=== PATIENT | female | born 1985 | race Caucasian/White ===

== ENCOUNTER 2022-07-26 11:47 | Outpatient (OUT) | payer MEDICARE, MEDICAID, SELFPAY ==
--- NOTE | 2022-07-26 11:51 | XR_ITS ---
The [address] [address] Patient Name: ETHAN BRADY MRN: [id number] date: 1985 Sex: F Assigned Patient Location: [facility] Current Patient Location: [facility] Accession/Order Number: [id number] Exam Date: 07/26/2022 11:51 Report Date: 07/26/2022 16:07 At the request of: RAPHAEL WILSON Procedure: XR foot LT min 3V PROCEDURE: XR foot LT min 3V HISTORY: LEFT FOOT PAIN ; follow-up fifth metatarsal stress fracture COMPARISON: XR foot left 07/12/2022 FINDINGS: BONES:Subtle band of sclerosis within base of fifth metatarsal consistent with near complete osseous healing of prior fracture. SOFT TISSUES:No visible soft tissue swelling. EFFUSION:None visible. OTHER: Negative. IMPRESSION: 1. Ongoing osseous healing of fifth metatarsal fracture. Electronically authenticated by: JAVIER LAYTON Date: 07/26/2022 16:07
== END 2022-07-26 11:48 ==
LOC: RAD 11:51
PROVIDERS: PCP Family Medicine; Visit Provider Podiatrist Foot & Ankle Surgery
DX: M84.375D Stress fracture, left foot, subsequent encounter for fracture with routine healing (principal)
CPT/HCPCS: 73630

== ENCOUNTER 2022-08-18 11:35 | Outpatient (OUT) | payer MEDICARE, MEDICAID, SELFPAY ==
--- NOTE | 2022-08-18 | CONS_ITS ---
NURSE CONSULTATION CONSULTATION DATE: ??08/18/2022 Patient visits the nurse to monitor her response to change in medication.? We had increased at her last visit, which was on 07/19/2022.? We had increased the Zonegran 50 mg three pills at bedtime and discontinued the gabapentin.? Patient reports that the transition has been fairly smooth.? Patient reports having improvement in symptoms with the use of Zonegran 50 mg pills, three at bedtime, and denies any side effects with the use of the same. RECOMMENDATIONS:? I have recommended continuing with the same dose of Zonegran 150 mg at h.s. and will have the patient return to the office in approximately four weeks? time or sooner if needed.? As part of providing excellent, safe, comprehensive care, the following was completed at our patient's visit: 1. A medication reconciliation and review to ensure accurate knowledge of current/active medications, including asking our patients to inform us about any mofc-wse-rspgovi medications or herbal remedies/nutritional supplements/alternative remedies. 2. A review to specifically ensure our patients have had annual screening for: elevated body mass index (BMI, see intake chart for exact total), tobacco use, screening for depression, and screening for unhealthy alcohol use.? When screening is concerning, patients are provided with education and the specific recommendation to discuss the concerning health issue and treatment options with their primary care provider. TATYANA
== END 2022-08-18 11:36 | disposition home or self-care (01) ==
LOC: PM 11:36
PROVIDERS: PCP Family Medicine; Visit Provider Anesthesiology Pain Medicine
DX: Z76.89 Persons encountering health services in other specified circumstances (principal)
CPT/HCPCS: G0463

== ENCOUNTER 2022-08-24 11:06 | Outpatient (OUT) | payer MEDICARE, MEDICAID, SELFPAY ==
--- NOTE | 2022-08-24 | XR_ITS ---
The [address] [address] Patient Name: ETHAN BRADY MRN: [id number] date: 1985 Sex: F Assigned Patient Location: [facility] Current Patient Location: [facility] Accession/Order Number: [id number] Exam Date: 08/24/2022 11:40 Report Date: 08/24/2022 12:18 At the request of: RAPHAEL WILSON Procedure: XR foot DANIELLE min 3V EXAMINATION: XR foot DANIELLE min 3V HISTORY: BILATERAL FOOT PAIN ; left foot pain, right lateral heel pain COMPARISON: XR foot left 07/26/2022, XR foot right 04/27/2022 FINDINGS: RIGHT FINDINGS: BONES: Prosthetic replacement of the talus and articular surface of the tibial plafond; no appreciable fracture or displacement. Prior osteotomy and bone staple repair of base of first metatarsal. Posterior calcaneal osteotomy and healing. SOFT TISSUES: No visible soft tissue swelling. OTHER: Negative. LEFT FINDINGS: BONES: Residual small fracture line seen at the lateral and inferior margins at base of fifth metatarsal. SOFT TISSUES: No visible soft tissue swelling. OTHER: Negative. IMPRESSION: RIGHT CONCLUSION: Stable surgical changes without evidence of hardware failure or change in alignment. LEFT CONCLUSION: Incomplete, but likely ongoing, healing of base of fifth metatarsal fracture. Electronically authenticated by: JAVIER LAYTON Date: 08/24/2022 12:18
== END 2022-08-24 11:07 | disposition home or self-care (01) ==
LOC: RAD 11:07
PROVIDERS: PCP Family Medicine; Visit Provider Podiatrist Foot & Ankle Surgery
DX: M79.672 Pain in left foot (principal); M79.671 Pain in right foot; Z98.890 Other specified postprocedural states; Z96.7 Presence of other bone and tendon implants; S92.352A Displaced fracture of fifth metatarsal bone, left foot, initial encounter for closed fracture; X58.XXXA Exposure to other specified factors, initial encounter
CPT/HCPCS: 73630

== ENCOUNTER 2022-09-20 13:37 | Outpatient (OUT) | payer MEDICARE, MEDICAID, SELFPAY ==
--- NOTE | 2022-09-20 13:48 | CT_ITS ---
[address] [address] Patient Name: ETHAN BRADY MRN: [id number] date: 1985 Sex: F Assigned Patient Location: CT Current Patient Location: CT Accession/Order Number: [id number] Exam Date: 09/20/2022 14:05 Report Date: 09/20/2022 18:22 At the request of: RAPHAEL WILSON Procedure: CT foot LT wo con EXAMINATION: CT foot LT wo con HISTORY: Stress Fracture Left Toe M84.378 COMPARISON: 08/24/2022 TECHNIQUE: Multi-planar CT images were created without IV contrast. Dose reduction techniques were achieved by using automated exposure control and/or adjustment of mA and/or kV according to patient size and/or use of iterative reconstruction technique. FINDINGS: BONES: Transverse extra-articular fracture identified at the base of the fifth metatarsal with partial bony bridging. Incomplete bony bridging identified along the plantar cortex. No additional fracture. No dislocation. No significant degenerative changes. SOFT TISSUES: Negative. No visible soft tissue swelling. EFFUSION: None visible. OTHER: Negative. CT/CT foot LT wo con IMPRESSION: Subacute transverse extra-articular healing fracture base of the fifth metatarsal with incomplete bony bridging along the plantar cortex Electronically authenticated by: TAYLA HANNON Date: 09/20/2022 18:22
== END 2022-09-20 13:38 | disposition home or self-care (01) ==
LOC: CT 13:38
PROVIDERS: PCP Family Medicine; Visit Provider Podiatrist Foot & Ankle Surgery
DX: M84.375A Stress fracture, left foot, initial encounter for fracture (principal)
CPT/HCPCS: 73700

== ENCOUNTER 2022-11-02 08:40 | Outpatient (OUT) | payer MEDICARE, MEDICAID, SELFPAY ==
--- NOTE | 2022-11-02 | XR_ITS ---
The [address] [address] Patient Name: ETHAN BRADY MRN: [id number] date: 1985 Sex: F Assigned Patient Location: [facility] Current Patient Location: [facility] Accession/Order Number: [id number] Exam Date: 11/02/2022 09:10 Report Date: 11/02/2022 10:10 At the request of: JOSE DAVID ROSSI Procedure: XR foot LT min 3V PROCEDURE: XR foot LT min 3V HISTORY: LEFT FOOT PAIN COMPARISON: XR foot bilateral 08/24/2022 FINDINGS: BONES:Stable nondisplaced fracture at base of fifth metatarsal without appreciable increased density at fracture line or callus formation. SOFT TISSUES:No visible soft tissue swelling. EFFUSION:None visible. OTHER: Negative. XR/XR foot LT min 3V IMPRESSION: 1. Stable, nondisplaced base of fifth metatarsal fracture. No appreciable change or visible progression of bone healing. Electronically authenticated by: JAVIER LAYTON Date: 11/02/2022 10:10
== END 2022-11-02 08:41 | disposition home or self-care (01) ==
LOC: RAD 08:41
PROVIDERS: PCP Family Medicine; Visit Provider Physician Assistant
DX: M79.672 Pain in left foot (principal)
CPT/HCPCS: 73630

== ENCOUNTER 2022-12-21 13:20 | Outpatient (OUT) | payer MEDICARE, MEDICAID, SELFPAY ==
--- NOTE | 2022-12-21 | XR_ITS ---
The [address] [address] Patient Name: ETHAN BRADY MRN: [id number] date: 1985 Sex: F Assigned Patient Location: [facility] Current Patient Location: Accession/Order Number: [id number] Exam Date: 12/21/2022 13:30 Report Date: 12/22/2022 00:44 At the request of: JOSE DAVID ROSSI Procedure: XR foot LT min 3V PROCEDURE: XR foot LT min 3V HISTORY: LEFT FOOT PAIN COMPARISON: XR foot left 11/02/2022 FINDINGS: BONES:Nondisplaced fracture at base of fifth metatarsal without visible callus formation or increased density of the fracture line. SOFT TISSUES:No visible soft tissue swelling. EFFUSION:None visible. OTHER: Negative. XR/XR foot LT min 3V IMPRESSION: 1. Persisting, stable base of fifth metatarsal fracture without visible progression of osseous healing. Electronically authenticated by: JAVIER LAYTON Date: 12/22/2022 00:44
== END 2022-12-21 13:21 | disposition home or self-care (01) ==
LOC: RAD 13:20
PROVIDERS: PCP Family Medicine; Visit Provider Physician Assistant
DX: M79.672 Pain in left foot (principal); S92.355G Nondisplaced fracture of fifth metatarsal bone, left foot, subsequent encounter for fracture with delayed healing
CPT/HCPCS: 73630

== ENCOUNTER 2023-02-14 12:49 | Outpatient (OUT) | payer MEDICARE, SELFPAY ==
--- NOTE | 2023-02-14 | XR_ITS ---
The [address] [address] Patient Name: ETHAN BRADY MRN: [id number] date: 1985 Sex: F Assigned Patient Location: [facility] Current Patient Location: [facility] Accession/Order Number: [id number] Exam Date: 02/14/2023 13:10 Report Date: 02/15/2023 17:14 At the request of: RAPHAEL WILSON Procedure: XR ankle RT min 3V EXAM: XR ankle RT min 3V HISTORY: RIGTH ANKLE PAIN COMPARISON: 04/27/2022 FINDINGS/IMPRESSION: 1. No acute fracture or dislocation 2. Ankle arthroplasty hardware. No apparent hardware complication. 3. Healed osteotomy of the calcaneus. 4. Surgical staple fixation of the medial aspect of the foot. Electronically authenticated by: XIANG GREENE Date: 02/15/2023 17:14
--- NOTE | 2023-02-14 | XR_ITS ---
[address] [address] Patient Name: ETHAN BRADY MRN: [id number] date: 1985 Sex: F Assigned Patient Location: [facility] Current Patient Location: [facility] Accession/Order Number: [id number] Exam Date: 02/14/2023 13:10 Report Date: 02/15/2023 17:28 At the request of: RAPHAEL WILSON Procedure: XR foot DANIELLE min 3V EXAM: XR foot DANIELLE min 3V HISTORY: BILATERAL FOOTPAIN COMPARISON: 08/24/2022 FINDINGS/IMPRESSION: RIGHT: 1. Surgical staple fixation of the proximal aspect of the first metatarsal. No apparent hardware complication. 2. Ankle posterior hardware. 3. Mild degeneration of the interphalangeal joints. 4. No acute fracture. LEFT: 1. Transverse fracture of the proximal fifth metatarsal. There is sclerosis along the fracture line. The fracture line remains visualized. 2. Normal alignment of the joints of the foot. 3. No ankle joint effusion. Electronically authenticated by: XIANG GREENE Date: 02/15/2023 17:28
== END 2023-02-14 12:50 | disposition home or self-care (01) ==
PROVIDERS: PCP Family Medicine; Visit Provider Podiatrist Foot & Ankle Surgery
DX: M25.571 Pain in right ankle and joints of right foot (principal); M84.375A Stress fracture, left foot, initial encounter for fracture; S92.355A Nondisplaced fracture of fifth metatarsal bone, left foot, initial encounter for closed fracture
CPT/HCPCS: 73610; 73630

== ENCOUNTER 2023-02-14 19:18 | Outpatient (REF) | payer MEDICARE, SELFPAY ==
[2023-02-21 10:10] LABS: Age Gdln ACOG Testing Note (.); HPV Aptima Negative (Negative); IGP, Aptima HPV, rfx 16/18,45 Note (.)
== END 2023-02-14 19:19 | disposition home or self-care (01) ==
LOC: LAB 19:18
PROVIDERS: PCP Family Medicine; Visit Provider Obstetrics & Gynecology
DX: Z01.419 Encounter for gynecological examination (general) (routine) without abnormal findings (principal)
CPT/HCPCS: 87624; G0145

== ENCOUNTER 2023-02-15 09:59 | Outpatient (OUT) | payer MEDICARE, SELFPAY ==
--- NOTE | 2023-02-15 10:22 | PM.CN ---
Consult Note: HPI Data of Consult Patient: known to practice within the last 3 years Requesting Physician: Nohelia Scott NP Primary Care Provider: HEATHER YANEZ Consult Narrative Reason for consult: f/u Narrative: Rena salcedo pleasant 37 year old female presents for evaluation and management of right foot pain, hx of numerous surgeries and continues to follow with podiatry. Today patient rating pain 7/10 in right foot, throbbing and hurting. Describes the pain as a nerve tingling pain. Has found benefit to zonegran in 150mg HS. cc:: CC: Nohelia Scott NP Review of Systems ROS Status of ROS 10 or more systems reviewed and unremarkable except as noted in history and below Musculoskeletal Reports: extremity pain and joint pain Exam Constitutional Documenting provider has reviewed patient's vital signs: yes Common normals: no apparent distress, oriented x3, healthy appearing, alert and well nourished General appearance: cooperative HENMT Common normals: normocephalic, hearing grossly normal bilaterally and moist oral mucous membranes Head and scalp: normocephalic Eye Common normals: PERRL Pupil: PERRL Neck & C-Spine Common normals: full ROM General: normal visual inspection Chest Common normals: inspection of chest normal Respiratory Common normals: normal respiratory effort, no retractions and no use of accessory muscles Extremity Right lower extremity: ankle joint and foot and digits Left lower extremity: ankle joint and foot and digits Other: scarring noted on right foot. hx of left foot stress fx limited ROM in bilateral feet intermittent coolness and edema Neuro Common normals: oriented x3, CN's II-XII intact bilaterally, moves all extremities, no focal motor deficits, no sensory deficits noted and deep tendon reflexes 2+ bilaterally Sensorium/orientation: alert Motor exam: strength 5/5 throughout and no movement abnormalities noted Psych Common normals: mental status grossly normal, thought process normal, cooperative, affect normal, speech normal and activity/motor behavior normal Speech: normal speech Thought process: normal thought process Results Additional Findings Additional findings: I have checked an OARRS report on this patient today and there are no aberrancies noted in the prescribing history.?? A drug screen was completed and reviewed within the last year, and if there has not been a drug screen completed we ordered one today to monitor higher risk, state monitored pain medication use. As part of providing excellent, safe, comprehensive care, the following was completed at our patient's visit: 1. A medication reconciliation and review to ensure accurate knowledge of current/active medications, including asking our patients to inform us about any jjol-tjw-vzisqoj medications or herbal remedies/nutritional supplements/alternative remedies. 2. A review to specifically ensure our patients have had annual screening for: elevated body mass index (BMI), tobacco use, screening for depression, and screening for unhealthy alcohol use. When screening is concerning, patients are provided with education and the specific recommendation to discuss the concerning health issue and treatment options with their primary care provider. Assessment and Plan Assessment and Plan (1) Chronic pain in right foot: (2) Left ankle pain: (3) Anxiety: Assessment and Plan: patient on 10mg fluoxetine through PCP, we discussed risks and benefits as well as possible serotonin syndrome. Patient would like to talk to PCP about stopping fluoxetine and starting duloxetine for her chronic pain. (4) Chronic pain syndrome: Plan continue zonegran 150mg HS start duloxetine 30mg daily, can take HS if this causes drowsiness, will start after stopping fluoxetine as discussed. take 30mg daily for 6 weeks, call to discuss effectiveness, can increase to 60mg next fill continue f/u with podiatry f/u 3 months
== END 2023-02-15 10:00 | disposition home or self-care (01) ==
LOC: PM 09:59
PROVIDERS: PCP Family Medicine; Visit Provider Nurse Practitioner
DX: M25.572 Pain in left ankle and joints of left foot (principal); F41.9 Anxiety disorder, unspecified; G89.4 Chronic pain syndrome
CPT/HCPCS: G0463

== ENCOUNTER 2023-05-31 08:40 | Outpatient (OUT) | payer MEDICARE, MEDICAID, SELFPAY ==
--- NOTE | 2023-05-31 09:00 | P.CN_ITS ---
Consult Note: HPI Data of Consult Patient: known to practice within the last 3 years Requesting Physician: Nohelia Scott NP Primary Care Provider: HEATHER YANEZ Consult Narrative Reason for consult: f/u Narrative: Rena salcedo pleasant 37 year old female presents for evaluation and management of right foot pain, hx of numerous surgeries and continues to follow with podiatry. Today patient rating pain 5/10 in right foot increasing to 8- 9/10, throbbing and hurting. Describes the pain as a nerve tingling pain. Has found benefit to zonegran in 150mg HS and duloxetine 30mg daily, however she has noticed weight gain. Patient feels her nerve pain has improved but she continues to have severe throbbing. cc:: CC: Nohelia Scott NP Review of Systems ROS Status of ROS 10 or more systems reviewed and unremark able except as noted in history and below Musculoskeletal Reports: extremity pain and joint pain Meds Home Medications and Allergies Home Medications ?Medication ?Instructions ?Recorded ?Confirmed ?Type cyclobenzaprine 10 mg tablet 10 mg PO DAILY 02/15/23 02/15/23 History duloxetine 60 mg capsule,delayed 60 mg PO DAILY 02/15/23 02/15/23 History release linaclotide 290 mcg capsule 290 mcg PO DAILY 02/15/23 02/15/23 History (Linzess) meclizine 25 mg tablet 25 mg PO BID 02/15/23 02/15/23 History norethindrone 1 mg-ethinyl 1 tab PO DAILY 02/15/23 02/15/23 History estradiol 20 mcg (24)-iron 75 mg (4) tablet () tramadol 50 mg tablet 50 mg PO DAILY PRN pain 02/15/23 02/15/23 History zinc gluconate 50 mg tablet 50 mg PO DAILY 02/15/23 02/15/23 History Allergies Allergy/AdvReac Type Severity Reaction Status Date / Time Penicillins Allergy Unknown Verified 02/15/23 10:52 Exam Constitutional Documenting provider has reviewed patient's vital signs: yes Common normals: no apparent distress, oriented x3, healthy appearing, alert and well nourished General appearance: cooperative HENNY Common normals: normocephalic, hearing grossly normal bilaterally and moist oral mucous membranes Head and scalp: normocephalic Eye Common normals: PERRL Pupil: PERRL Neck & C-Spine Common normals: full ROM General: normal visual inspection Chest Common normals: inspection of chest normal Respiratory Common normals: normal respiratory effort, no retractions and no use of accessory muscles Extremity Right lower extremity: ankle joint and foot and digits Left lower extremity: ankle joint and foot and digits Other: scarring noted on right foot. hx of left foot stress fx limited ROM in bilateral feet intermittent coolness and edema Neuro Common normals: oriented x3, CN's II-XII intact bilaterally, moves all extremities, no focal motor deficits, no sensory deficits noted and deep tendon reflexes 2+ bilaterally Sensorium/orientation: alert Motor exam: strength 5/5 throughout and no movement abnormalities noted Psych Common normals: mental status grossly normal, thought process normal, cooperative, affect normal, speech normal and activity/motor behavior normal Speech: normal speech Thought process: normal thought process Results Additional Findings Additional findings: If on a controlled substance or opioids, I have checked an OARRS report on this patient and there are no aberrancies noted in the prescribing history.??If on a controlled substance or opioid a drug screen was completed and reviewed within the last year, and if there has not been a drug screen completed we ordered one today to monitor higher risk, state monitored pain medication use. As part of providing excellent, safe, comprehensive care, the following was completed at our patient's visit: 1. A medication reconciliation and review to ensure accurate knowledge of current/active medications, including asking our patients to inform us about any kfvv-vrw-mttzfgb medications or herbal remedies/nutritional supplements/alternative remedies. 2. A review to specifically ensure our patients have had annual screening for screening for depression, screening for tobacco use, and screening for unhealthy alcohol use. For concerning screenings had a discussion with the patient, provided patient education, and recommended follow-up with primary care provider when appropriate. If patient noted with a risk of falling, they received education on strength, gait, and balance training to prevent future risk of falling. Assessment and Plan Assessment and Plan (1) Chronic pain in right foot: (2) Left ankle pain: (3) Anxiety: Assessment and Plan: patient on 10mg fluoxetine through PCP, we discussed risks and benefits as well as possible serotonin syndrome. Patient would like to talk to PCP about stopping fluoxetine and starting duloxetine for her chronic pain. (4) Chronic pain syndrome: Plan adjust zonegran 50mg AM 100mg HS, call to discuss effectiveness decrease duloxetine every other day 1-2 weeks as tolerated and stop, patient has noticed pain relief but weight gain. Pt would like to DC continue f/u with podiatry continue f/u with PCP, they manage tramadol f/u 3 months
== END 2023-05-31 08:41 | disposition home or self-care (01) ==
PROVIDERS: PCP Family Medicine; Visit Provider Nurse Practitioner
DX: M79.672 Pain in left foot (principal); M25.572 Pain in left ankle and joints of left foot; F41.9 Anxiety disorder, unspecified; G89.4 Chronic pain syndrome
CPT/HCPCS: G0463

== ENCOUNTER 2023-06-27 09:51 | Outpatient (OUT) | payer MEDICARE, SELFPAY ==
--- NOTE | 2023-06-27 10:16 | US_ITS ---
The [address] [address] Patient Name: ETHAN BRADY MRN: [id number] date: 1985 Sex: F Assigned Patient Location: [place] Current Patient Location: [place] Accession/Order Number: [id number] Exam Date: 06/27/2023 10:18 Report Date: 06/27/2023 11:01 At the request of: SMITHA REINOSO Procedure: US pelvis w/ transvaginal EXAMINATION: US pelvis w/ transvaginal HISTORY: Pain Of Ovary N94.89 ; left pelvic pain COMPARISON: No relevant comparison available. TECHNIQUE: Transabdominal and/or transvaginal sonographic examination was performed as indicated by examination type. FINDINGS: UTERUS: Normal size and appearance. Uterus size: 6.9 x 4.4 x 4.1 cm ENDOMETRIUM: Normal homogeneous appearance. Endometrial thickness: 9 mm RIGHT OVARY: Oophorectomy LEFT OVARY: Normal size and appearance. Duplex Doppler demonstrates normal waveform and flow; resistive index 0.6. Ovary size: 2.6 x 1.5 x 1.2 cm CUL-DE-SAC: Unremarkable. No significant free fluid. BLADDER: Unremarkable. OTHER: None. US/US pelvis w/ transvaginal IMPRESSION: 1. Unremarkable uterus and left ovary. No suspicious adnexal findings to account for patient's symptoms. 2. Prior right oophorectomy. Electronically authenticated by: JAVIER LAYTON Date: 06/27/2023 11:01
== END 2023-06-27 09:52 | disposition home or self-care (01) ==
PROVIDERS: PCP Physician Assistant; Visit Provider Physician Assistant
DX: N94.89 Other specified conditions associated with female genital organs and menstrual cycle (principal)
CPT/HCPCS: 76830; 76856

== ENCOUNTER 2023-08-30 08:57 | Outpatient (OUT) | payer MEDICARE, SELFPAY ==
--- NOTE | 2023-08-30 09:11 | P.CN_ITS ---
Consult Note: HPI Data of Consult Patient: known to practice within the last 3 years Requesting Physician: Nohelia Scott NP Primary Care Provider: Toshia Blue Consult Narrative Reason for consult: f/u Narrative: Rena Juan a pleasant 37 year old female presents for evaluation and management of right foot pain, hx of numerous surgeries and continues to follow with podiatry. Today patient rating pain 5/10 in right foot increasing to 8- 9/10, throbbing and hurting. Has noticed improvement with zonegran 100mg BID. cc:: CC: Nohelia Scott NP Review of Systems ROS Status of ROS 10 or more systems reviewed and unremark able except as noted in history and below Musculoskeletal Reports: extremity pain PFSH PFSH Medical History (Updated 05/31/23 @ 09:32 by Laura Meza RN) Osteoarthritis of right ankle ?M19.071 - Primary osteoarthritis, right ankle and foot (ICD-10) Neuropathy of right foot ?G57.91 - Unspecified mononeuropathy of right lower limb (ICD-10) Surgical History History of right salpingo-oophorectomy ?Z90.79 - Acquired absence of other genital organ(s) (ICD-10) ?Z90.721 - Acquired absence of ovaries, unilateral (ICD-10) History of open reduction and internal fixation (ORIF) procedure ?Z98.890 - Other specified postprocedural states (ICD-10) History of total ankle replacement ?Z96.669 - Presence of unspecified artificial ankle joint (ICD-10) Meds Home Medications and Allergies Home Medications ?Medication ?Instructions ?Recorded ?Confirmed ?Type cyclobenzaprine 10 mg tablet 10 mg PO DAILY 02/15/23 02/15/23 History duloxetine 60 mg capsule,delayed 60 mg PO DAILY 02/15/23 02/15/23 History release linaclotide 290 mcg capsule 290 mcg PO DAILY 02/15/23 02/15/23 History (Linzess) meclizine 25 mg tablet 25 mg PO BID 02/15/23 02/15/23 History norethindrone 1 mg-ethinyl 1 tab PO DAILY 02/15/23 02/15/23 History estradiol 20 mcg (24)-iron 75 mg (4) tablet () tramadol 50 mg tablet 50 mg PO DAILY PRN pain 02/15/23 02/15/23 History zinc gluconate 50 mg tablet 50 mg PO DAILY 02/15/23 02/15/23 History zonisamide 50 mg capsule 50 mg PO BID #90 caps 05/31/23 Rx Allergies Allergy/AdvReac Type Severity Reaction Status Date / Time Penicillins Allergy Unknown Verified 02/15/23 10:52 Exam Constitutional Documenting provider has reviewed patient's vital signs: yes Common normals: no apparent distress, oriented x3, healthy appearing, alert and well nourished General appearance: cooperative HENMT Common normals: normocephalic, hearing grossly normal bilaterally and moist oral mucous membranes Head and scalp: normocephalic Eye Common normals: PERRL Pupil: PERRL Neck & C-Spine Common normals: full ROM General: normal visual inspection Chest Common normals: inspection of chest normal Respiratory Common normals: normal respiratory effort, no retractions and no use of accessory muscles Extremity Right lower extremity: ankle joint and foot and digits Left lower extremity: ankle joint and foot and digits Other: scarring noted on right foot. hx of left foot stress fx limited ROM in bilateral feet intermittent coolness and edema Neuro Common normals: oriented x3, CN's II-XII intact bilaterally, moves all extremities, no focal motor deficits, no sensory deficits noted and deep tendon reflexes 2+ bilaterally Sensorium/orientation: alert Motor exam: strength 5/5 throughout and no movement abnormalities noted Psych Common normals: mental status grossly normal, thought process normal, cooperative, affect normal, speech normal and activity/motor behavior normal Speech: normal speech Thought process: normal thought process Assessment and Plan Assessment and Plan (1) Chronic pain in right foot: (2) Left ankle pain: (3) Chronic pain syndrome: Plan continue zonegran 100mg BID continue f/u with podiatry continue f/u with PCP, they manage tramadol f/u 6 months
== END 2023-08-30 08:58 | disposition home or self-care (01) ==
LOC: PM 08:57
PROVIDERS: PCP Physician Assistant; Visit Provider Nurse Practitioner
DX: M79.671 Pain in right foot (principal); M25.572 Pain in left ankle and joints of left foot; G89.4 Chronic pain syndrome
CPT/HCPCS: G0463

== ENCOUNTER 2024-02-28 19:58 | Outpatient (REF) | payer MEDICARE, SELFPAY | END 2024-02-28 19:59 | disposition home or self-care (01) | LOC: LAB 19:58 | PROVIDERS: PCP Physician Assistant; Visit Provider Obstetrics & Gynecology | DX: Z01.419 Encounter for gynecological examination (general) (routine) without abnormal findings (principal) | CPT/HCPCS: 87624; 88175 ==

== ENCOUNTER 2024-03-13 12:40 | Outpatient (OUT) | payer MEDICARE, SELFPAY ==
--- OUTSIDE RECORDS SUMMARY | 2024-03-13 12:49 | XMS_ITS | CCD ---
Author Organization [facility] Care Team Providers Care Enamel Drier Name Role Phone PROVIDER, UNKNOWN Attending Unavailable PROVIDER, UNKNOWN Admitting Unavailable VIVIANA BOONE Referring Unavailable Ronaldo Anthony Unavailable Unavailable Primary Care Provider MD Heather Matos Primary Care Provider GLYNN Garcia Attending Provider Sandra Garcia Unavailable Sandra Garcia Attending Unavailable Sandra Garcia Admitting Unavailable Heather Chawla Primary Care Unavailable RAPHAEL MUHAMMAD Admitting Unavailable RAPHAEL MUHAMMAD Attending Unavailable RENATA, DR HEATHER An Primary Care Unavailable CALIN, DR JAVIER Marcus Consulting Unavailable RAPHAEL MUHAMMAD Consulting Unavailable RENATA, DR HEATHER An Primary Care Unavailable KELLY, DR STANFORD Tadeo Consulting Unavailabl e KELLY, DR STANFORD Tadeo Attending Unavailabl e KELLY, DR STANFORD Tadeo Admitting Unavailabl e NIDIA PIPER Consulting Unavailable LAKSHMIPATHY ., NARENDRANATH Admitting Cheri vailable LAKSHMIPATHY ., NARENDRANATH Consulting Cheri vailable LAKSHMIPATHY ., NARENDDELATH Attending Cheri vailable RENATA, DR HEATHER An Primary Care Unavailable LAKSHMIPATHY ., NARENDRANATH Attending Cheri vailable LAKSHMIPATHY ., NARENDRANATH Admitting Cheri vailable LAKSHMIPATHY ., NARENDRANATH Consulting Cheri vailable DR HEATHER CHAWLA Primary Care Unavailable RENATA, DR HEATHER An Primary Care Unavailable RAPHAEL MUHAMMAD Referring Unavailable LAKSHMIPATHY ., NARENDRANATH Attending Cheri vailable LAKSHMIPATHY ., NARENDRANATH Admitting Cheri vailable LAKSHMIPATHY ., NARENDRANATH Consulting Cheri vailable MEKHI ., FIONA Consulting Unavailable MEKHI ., FIONA Attending Unavailable MEKHI ., FINOA Admitting Unavailable RENATA, DR HEATHER An Primary Care Unavailable FLO, JOSE DAVID Attending Unavailable FLO, JOSE DAVID Admitting Unavailable WEST, DR TAYLA [place] Consulting Unavailable RENATA, DR HEATHER An Primary Care Unavailable FLOJOSE DAVID GOLDEN Consulting Unavailable RENATA, DR HEATHER An Primary Care Unavailable ROBBINANDER, RAPHAEL Guerin Admitting Unavailable HIGHLANDER, RAPHAEL Guerin Attending Unavailable PARVEZ, DR TAYLA [place] Consulting Unavailable STEVE, RAPHAEL Guerin Consulting Unavailable RENATA, DR HEATHER An Primary Care Unavailable ELIGIO ., DR CAMPA Consulting Unavailable ELIGIO ., DR CAMPA Attending Unavailable ELIGIO ., DR CAMPA Admitting Unavailable HIGHLANDER, RAPHAEL Guerin Admitting Unavailable HIGHLANDER, RAPHAEL Guerin Attending Unavailable CALIN, DR JAVIER Marcus Consulting Unavailable RENATA, DR HEATHER An Primary Care Unavailable HIGHLANDER, RAPHAEL Guerin Consulting Unavailable Heather Chawla MD Primary Care Provider [phone] Unavailable Primary Care Provider Unavailarsenio e SMITHA REINOSO Attending Unavailable SMITHA REINOSO Attending Unavailable SMITHA REINOSO Attending Unavailable KATHERYN DEL VALLE Attending Unavailable Allergies Allergy Classification Reported Allergen(s) Allergy Type Date of Onset Reaction(s) Facility (11 sources) Penicillins; Translations: [PENICILLINS] Propensity to adverse reactions to drug (disorder) 2 Hives, Itching, Rash, Swelling [facility] sources[facility] Penicillin G Drug Allergy fever, hives [facility] Other (1 source) Desonide Drug Allergy [facility] Repository Medications Current Medications Medication Drug Class(es) Dates Sig (Normalized) Sig (Original) acetaminophen 325 mg oral tablet (3 sources) Start: 07-21-2011 take 2 tablets by mouth every four hours as needed acetaminophen (TYLENOL) 325 MG tablet Take 2 Tabs by mouth every 4 hours as needed. 60 Tab 3 07/21/2011 Active ascorbic acid 500 mg oral capsule (7 sources) Vitamin C take 1 capsule by mouth in the morning Ascorbic Acid (Vitamin C) 500 MG capsule Take 500 mg by mouth in the morning. Active Vitamin C Active azithromycin 250 mg oral tablet (1 source) Macrolide Antimicrobial Start: 02-05-2022 Azithromycin 250 MG 2 tablets on the first day, then 1 tablet daily for 4 days Orally Once a day for 5 day(s) Jan, Active Calcium Carb-Cholecalcifero l (CALCIUM 500 + D PO) (6 sources) Calcium Carb-Cholecalcifer ol (CALCIUM 500 + D PO) Take 500 mg by mouth in the morning. Active calcium carbonate 500 mg oral tablet (3 sources) Start: 10-03-2012 take 1 tablet by mouth once daily calcium carbonate (OS-MARQUISE) 1250 MG tablet Take 1 Tab by mouth daily. 30 Tab 3 10/03/2012 Active cholecalciferol 0.05 mg oral capsule (6 sources) Vitamin D take 1 capsule by mouth in the morning cholecalciferol (Vitamin D-3) 50 MCG (2000 UT) capsule Take 2,000 Units by mouth in the morning. Active codeine phosphate 2 mg/ml / guaiFENesin 20 mg/ml oral solution (1 source) Opioid Agonist Start: 02-05-2022 take 10 mL by mouth every four to six hours as needed for cough guaiFENesin-Codein e 100-10 MG/5ML 10 mL as needed Orally every 4-6 hrs as needed for cough for 3 days Jan, Active cyclobenzaprine hydrochloride 10 mg oral tablet (5 sources) Muscle Relaxant take 1 tablet by mouth three times daily as needed cyclobenzaprine (FLEXERIL) 10 MG tablet Take 10 mg by mouth 3 times daily as needed. Active doxycycline monohydrate 100 mg oral capsule (1 source) Tetracycline-class Drug Start: 12-27-2021 take 1 capsule by mouth every twelve hours Doxycycline Monohydrate 100 MG 1 capsule Orally Twice a day for 10 day(s) Dec, Active DULoxetine 30 mg delayed release oral capsule (7 sources) Serotonin and Norepinephrine Reuptake Inhibitor Start: 05-08-2023 take 1-2 capsules by mouth once daily DULoxetine (Cymbalta) [address] capsule TAKE 1 TO 2 CAPSULES BY MOUTH ONCE DAILY 05/08/2023 Active 0.4 ml enoxaparin sodium 100 mg/ml prefilled syringe (2 sources) Low Molecular Weight Heparin Start: 07-21-2011 inject 0.4 mL by subcutaneous injection once daily enoxaparin (LOVENOX) 40 MG/0.4ML injection Inject 0.4 mL under the skin daily. 11.2 mL 0 07/21/2011 Active ergocalciferol 1.25 mg oral capsule (3 sources) Provitamin D2 Compound Start: 10-03-2012 take 1 capsule by mouth once daily ergocalciferol (DRISDOL) 86637 UNITS capsule Take 1 Cap by mouth daily. 30 Cap 3 10/03/2012 Active Ethinyl Estradiol / Ferrous fumarate / Norethindrone (9 sources) Estrogen Start: 06-19-2023 End: 06-18-2024 take 1 tablet by mouth once daily, then take 1 tablet by mouth once daily norethindrone-ethi nyl estradiol (Junel FE 03/11) 1-20 MG-MCG tablet Indications: Uses control Take 1 tablet by mouth Daily Take 1 tablet by mouth daily 360 tablet 06/19/2023 06/18/2024 Active take 1 tablet by paige th every twenty-four hours Loestrin Fe 1.5/30 1.5-30 MG-MCG 1 tablet Orally Once a day for 28 day(s) Active ethinyl estradiol 0.03 mg / norethindrone acetate 1.5 mg oral tablet (5 sources) Estrogen Start: 02-14-2023 End: 02-28-2024 take 1 tablet by mouth once daily norethindrone ac-eth estradio (Loestrin 1.5/30, 21,) 1.5-30 MG-MCG tablet tablet Indications: Family planning, natural methods to avoid Take 1 tablet by mouth 1 (one) time each day at the same time 21 tablet 11 02/14/2023 02/28/2024 Discontinued (Ineffective) fexofenadine hydrochloride 30 mg disintegrating oral tablet (9 sources) Histamine-1 Receptor Antagonist take 1 tablet by mouth in the morning fexofenadine ODT (Lisa ODT) 30 MG disintegrating tablet Take 30 mg by mouth in the morning. Active take 1 tablet by mouth twice radha ly Lisa 60 MG 1 tablet Orally Twice a day Active fluticasone propionate 0.05 mg/actuat metered dose nasal spray (2 sources) Corticosteroid take 1 spray(s) nasal route once daily Flonase 50 MCG/ACT 1 spray in each nostril Nasally Once a day Active gabapentin 600 mg oral tablet (1 source) Anti-epileptic Agent Gabapentin 600 MG TAKE 2 TABLETS IN THE AM, 1 TABLET IN THE AFTERNOON, AND 2 TABLETS AT BEDTIME Oral for 30 Days Active linaclotide 0.29 mg oral capsule (10 sources) Guanylate Cyclase-C Agonist Start: 05-09-19 take 1 capsule by mouth once daily Linaclotide (Linzess) 290 mcg capsule Active 290 MCG PO Daily May 09, 2023 12:00am take 1 capsule by mo ut every twenty-four hours Linzess 290 MCG 1 capsule Orally Once a day for 30 days Active take 1 capsule by mo uth every twenty-four hours Linzess 145 MCG 1 capsule Orally Once a day for 30 day(s) Active Magnesium (6 sources) take 1 tablet by mouth in the morning magnesium 200 MG tablet Take 200 mg by mouth in the morning. Active meclizine hydrochloride 25 mg oral tablet (8 sources) Antiemetic Start: 05-09-2023 take 25 mg by mouth once daily Meclizine Active 25 MG PO Daily May 09, 2023 12:00am take 1 tablet by paige three times daily as needed meclizine (Antivert) 25 MG tablet Take 2 5 mg by mouth 3 (three) times a day as needed Active Meclizine HCl 25 MG Oral for 10 Days Active meloxicam 15 mg oral tablet (3 sources) Nonsteroidal Anti-inflammatory Drug Start: 11-30-2015 take 1 tablet by mouth once daily meloxicam (MOBIC) 15 MG tablet Take 1 Tablet by mouth daily. 30 Tablet 3 11/30/2015 Active 24 hr metFORMIN hydrochloride 500 mg extended release oral tablet (7 sources) Biguanide Start: 02-08-2023 End: 01-28-2025 take 1 tablet by mouth every twenty-four hours at mealtime metFORMIN XR (Glucophage-XR) 500 MG 24 hr tablet Indications: Metabolic syndrome TAKE 1 TABLET (500 MG) BY MOUTH IN THE EVENING. TAKE WITH MEALS 90 tablet 3 01/29/2024 01/28/2025 Active metFORMIN HCl ER 500 MG Oral for 90 Days Active naproxen 500 mg oral tablet (13 sources) Nonsteroidal Anti-inflammatory Drug Start: 10-03-2012 take 1 tablet by mouth twice daily naproxen (NAPROSYN) 500 MG tablet Take 1 Tab by mouth 2 times daily. 60 Tab 3 01/09/2013 Active Norethindrone Ac-Eth Estradiol ( ()) 1.5-30 mg-mcg tablet (1 source) Start: 05-09-2023 take 1 tablet by mouth once daily Norethindrone Ac-Eth Estradiol ( ()) 1.5-30 mg-mcg tablet Active 1 TAB PO Daily May 09, 2023 12:00am omeprazole 20 mg delayed release oral capsule (3 sources) Proton Pump Inhibitor Start: 02-28-2024 End: 02-27-2025 take 1 capsule by mouth before mealtime omeprazole (PriLOSEC) [address] capsule Indications: Acute cough Take 1 capsule (20 mg) by mouth in the morning. Take before meals. Do not crush or chew.. 30 capsule 02/28/2024 02/27/2025 Active phentermine hydrochloride 37.5 mg oral tablet (5 sources) Sympathomimetic Amine Anorectic Start: 06-27-2023 take 1 tablet by mouth before mealtime phentermine (Adipex-P) 37.5 MG tablet Indications: Encounter for weight management Take 1 tablet (37.5 mg) by mouth in the morning. Take before meals. 90 tablet 06/27/2023 Active predniSONE 20 mg oral tablet (2 sources) Start: 02-05-2022 take 1 tablet by mouth every twelve hours predniSONE 20 MG 1 tablet Orally twice a day for 5 days Jan, Active Start: 12-27-2021 take 1 tablet by paige th every twelve hours predniSONE 20 MG 1 tablet Orally twice a day for 5 days Dec, Active promethazine hydrochloride 25 mg oral tablet (4 sources) Phenothiazine Start: 11-30-2015 take 1 tablet by mouth every six hours as needed for nausea promethazine (PHENERGAN) 25 MG tablet Take 1 Tablet by mouth every 6 hours as needed for Nausea. 30 Tablet 0 11/30/2015 Active Phenergan 12.5mg 12.5mg as directed by mouth Active traMADol hydrochloride 50 mg oral tablet (10 sources) Opioid Agonist Start: 06-28-2022 take 1-2 tablets by mouth twice daily as needed for pain traMADol (Ultram) 50 MG tablet 1-2 tablets Orally BID PRN ankle/foot pain for 30 days 06/28/2022 Active Start: 05-30-2016 take 1 tablet by paige th every six hours as needed for pain tramadol (ULTRAM) 50 MG tablet Take 1 Tablet by mouth every 6 hours as needed for Pain. 50 Tablet 3 05/30/2016 Active traMADol HCl Act vlad Vitamin B Complex (1 source) Vitamin B Comple x Active Vitamin D3 (1 source) Vitamin D3 Activ e zinc gluconate 77 mg oral lozenge (6 sources) Zinc 10 MG lozen ge Zinc Active zonisamide 100 mg oral capsule (13 sources) Anti-epileptic Agent Start: 09-10-2023 take 1 capsule by mouth in the morning zonisamide (Zonegran) 100 MG capsule Take 100 mg by mouth in the morning and 100 mg before bedtime. 09/10/2023 Active Start: 05-09-2023 take 50 mg by mouth once daily Zonisamide Active 50 MG PO Daily May 09, 2023 12:00am Problems Active Problems Problem Classification Problem Date Documented Date Episodic/Chronic Acute bronchitis (1 source) Acute bronchitis, unspecified Episodic Administrative/social admission (2 sources) Patient encounter status; Translations: [Persons encountering health services in other specified circumstances] 09-27-2023 Episodic Asthma (1 source) Mild intermittent asthma, uncomplicated; Translations: [MILD INTERMIT ASTHMA UNCOMPLICATED] Onset: 10-29-2021 Chronic Osteoarthritis (5 sources) Post-traumatic osteoarthritis, right ankle and foot; Translations: [POST-TRAUM OSTEOARTHRITIS RT ANK FT] Onset: 10-29-2021 Chronic Other acquired deformities (1 source) Contracture, right foot; Translations: [CONTRACTURE RIGHT FOOT] Onset: 06-04-2022 Chronic Other connective tissue disease (1 source) Presence of right artificial knee joint; Translations: [PRESENCE RT ARTIFICIAL KNEE JOINT] Onset: 06-04-2022 Chronic Other connective tissue disease (4 sources) Neuralgia and neuritis, unspecified; Translations: [NEURALGIA AND NEURITIS UNSPECIFIED] Onset: 07-19-2022 Episodic Other connective tissue disease (4 sources) Pain in left foot; Translations: [PAIN IN LEFT FOOT] Onset: 07-12-2022 Episodic Other connective tissue disease (5 sources) Pain in right foot; Translations: [PAIN IN RIGHT FOOT] Onset: 10-04-2021 Episodic Other lower respiratory disease (2 sources) Cough; Translations: [Acute cough] 02-28-2024 Episodic Other nervous system disorders (1 source) Other chronic pain; Translations: [OTHER CHRONIC PAIN] Onset: 06-04-2022 Chronic Other non-traumatic joint disorders (1 source) Pain in left wrist Episodic Other non-traumatic joint disorders (5 sources) Pain in right ankle and joints of right foot; Translations: [PAIN IN RIGHT ANKLE] Onset: 10-04-2021 Episodic Other upper respiratory disease (1 source) Allergic rhinitis due to pollen; Translations: [ALLERGIC RHINITIS DUE TO POLLEN] Onset: 10-29-2021 Chronic Other upper respiratory infections (2 sources) Acute pansinusitis, unspecified; Translations: [Acute pharyngitis, unspecified] Episodic Past or Other Problems Problem Classification Problem Date Documented Date Episodic/Chronic E Codes: Fall (1 source) Fall in (into) filled bathtub causing other injury, initial encounter; Translations: [FALL FILLED BATHTUB OTH INJ INITIAL] Onset: 10-29-2021 Episodic Fracture of lower limb (9 sources) Fracture of ankle; Translations: [Other fracture of right lower leg, initial encounter for closed fracture] Onset: 07-10-2011 09-28-2011 Episodic Fracture of upper limb (6 sources) Closed fracture of distal end of radius; Translations: [Other fractures of lower end of unspecified radius, initial encounter for closed fracture] Onset: 07-14-2011 Resolved: 09-08-2011 09-08-2011 Episodic Immunizations and screening for infectious disease (1 source) Encounter for screening for human papillomavirus (HPV); Translations: [ENC SCREENING HUMAN PAPILLOMAVIRUS] Onset: 01-29-2022 Episodic Other connective tissue disease (1 source) Pain in right lower leg; Translations: [PAIN IN RIGHT LOWER LEG] Onset: 10-31-2021 Episodic Other non-traumatic joint disorders (3 sources) Pain in left knee; Translations: [PAIN IN LEFT KNEE] Onset: 10-28-2021 Episodic Other screening for suspected conditions (not mental disorders or infectious disease) (4 sources) Encounter for screening for malignant neoplasm of cervix; Translations: [ENC SCREENING MALIG NEOPLASM CERV] Onset: 01-25-2022 Episodic Sprains and strains (2 sources) Sprain of unspecified site of left knee, initial encounter; Translations: [Unspecified sprain of left elbow, initial encounter] Onset: 10-29-2021 Episodic Superficial injury; contusion (2 sources) Contusion of left wrist, initial encounter; Translations: [Contusion of right knee, initial encounter] Onset: 10-29-2021 Episodic Unclassified (2 sources) Cough R05.9 Results Test Name Value Interpretation Reference Range Facility IGP,APTIMA HPV,AGE GDLNon AGE GDLN ACOG TESTING Note . [facility] Comment on above: TESTS RESULT FLAG UN ITS REF RANGE LAB Clinician Provided Cytology Information Source.............Cervix;Endocervix No. of containers..01 ThinPrep Vial Age Algo ACOG Jazmín... 3065 FLAG LEGEND: L-Low Normal,H-High Normal,LL-Alert Low,HH-Alert High <-Panic Low,>-Panic High,A-Abnormal,AA-Critical Abnormal Performed at: 01 =G [address] [place] [address] Rachana Vines MD, HPV APTIMA Negative Negative [facility] Comment on above: This nucleic acid am plification test detects fourteen high- risk HPV types (16,18,31,33,35,39,45,51,52,56,58,59,66,68) without differentiation. Performed at: =[facility] [employer] [address], [place] [id number] Rigging Up Worker: Rachana Vines MD, Phone: [phone] Performed at: [facility] [address] [place], [place] [id number] Rigging Up Worker: Luis F Almeida MD, Phone: [phone] IGP, APTIMA HPV, RFX 16/18,45 Note . [facility] Comment on above: TESTS RESULT FLAG UN ITS REF RANGE LAB DIAGNOSIS: 02 NEGATIVE FOR INTRAEPITHELIAL LESION OR MALIGNANCY. Specimen adequacy: 02 Satisfactory for evaluation. Endocervical and/or squamous metaplastic cells (endocervical component) are present. Performed by: 02 Ghislaine Crocker, Sanipractic Physician (ASCP) . 02 Note: Note 03 The Pap smear is a screening test designed to aid in the detection of premalignant and malignant conditions of the uterine cervix. It is not a diagnostic procedure and should not be used as the sole means of detecting cervical cancer. Both false-positive and false-negative reports do occur. Test Methodology: Note 03 This liquid based ThinPrep(R) pap test was screened with the use of an image guided system. HPV Genotype Reflex Note 02 Criteria not met, HPV Genotype not performed. FLAG LEGEND: L-Low Normal,H-High Normal,LL-Alert Low,HH-Alert High <-Panic Low,>-Panic High,A-Abnormal,AA-Critical Abnormal Performed at: [facility] [address] [place] [address] Luis F Almeida MD, [address] [facility] [address] [address] Rachana Vines MD, BRUSH-SPATULA CERVIX ENDOCERVIX [facility] No Panel InformationOrdered By: Dion Ellison on 05-09-2023 Quick Strep (POC) [facility] XR wrist LT min 3V*on 2022 XR wrist LT min 3V* [place] [address] XRay Report Signed Patient: Rena Juan MR#: [id number] : 1985 Acct:[id number] Age/Sex: 36 / F ADM Date: 06/23/22 Loc: [facility] [place] Room: Type: [facility] Attending Dr: Sandra WEEKSC Copies to: AALIYAH Ramos Ordering Provider: AALIYAH Ramos Date of Service: 06/23/22 XR/XR wrist LT min 3V*: M25.532 4 views LEFT wrist plain film COMPARISON: None HISTORY: Injury yesterday. Acute findings: None Degenerative change: Unremarkable Soft tissue findings: Unremarkable Joint effusion: None Postop changes: Distal radial plate and screw fixation remains intact. XR/XR wrist LT min 3V* IMPRESSION: Stable postsurgical changes. No acute fracture. Impression dictated by: Pablo Watts M.D.06/23/2022 2:08 PM Dictation Location: [place] [address] Transcribed By: [facility] 06/23/22 140 Dictated By: Pablo Watts DO 06/23/221403 Signed By: 06/23/221407 Normal [facility] COVID/FLU/RSV RT-PCRon 02-05 SARS-CoV-2 (COVID-19) RNA TANI+probe Ql (Unsp spec) Negative [employer] Other COVID/FLU/RSV RT-PCR Positive [facility] [employer] Other COVID/FLU/RSV RT-PCR negagtive m2p-labst [facility]wish Other COVID/FLU/RSV RT-PCR Negative [facility] [employer] Other Quick Strepon 02-05-2022 S. pyogenes Org specific cx Ql (Throat) Negative [facility] [employer] Other Quick Strep [facility] [employer] Other PAP ACOG PANEL 2: 30 to 65on 02-03-2022 . . Normal [facility] Comment on above: Result Comment: Perf ormed at: WB Performed By: #### [id number] #### [facility] [address] [address] [address] Tha Cowan Age Gdln ACOG Testing 30-65 Normal [facility] Comment on above: Performed By: #### [id number] #### [facility] [address] [address] [address] Tha Cowan DIAGNOSIS: Comment Normal [facility] Comment on above: Result Comment: NEGA TIVE FOR INTRAEPITHELIAL LESION OR MALIGNANCY. Performed at: WB Performed By: #### [id number] #### [facility] [address] [address] [address] Tha Cowan HPV Aptima Negative Normal Negative [facility] Comment on above: Result Comment: This nucleic acid amplification test detects fourteen high-risk HPV types (16,18,31,33,35,39,45,51,52,56,58,59,66,68) without differentiation. Performed at: =G Performed By: #### [id number] #### [facility] [address] [address] [address] Tha Cowan HPV Genotype Reflex Comment Normal [facility] Comment on above: Result Comment: Crit eria not met, HPV Genotype not performed. Performed at: WB Performed By: #### [id number] #### [facility] [address] [address] [address] Tha Cowan Methodology: Comment Normal [facility] Comment on above: Result Comment: This liquid based ThinPrep(R) pap test was screened with the use of an image guided system. Performed at: WB Performed By: #### [id number] #### [facility] [address] [place] [address] Dr. Tha Cowan Note: Comment Normal [facility] Comment on above: Result Comment: The Pap smear is a screening test designed to aid in the detection of premalignant and malignant conditions of the uterine cervix. It is not a diagnostic procedure and should not be used as the sole means of detecting cervical cancer. Both false-positive and false-negative reports do occur. . Performed at: WB Performed By: #### [id number] #### [facility] [address] [place] [address] Dr. Tha Cowan Performed by: Comment Normal [facility] Comment on above: Result Comment: Rosalba Booker, Sanipractic Physician (ASCP) Performed at: WB Performed By: #### 4 [id number] #### [facility] [address] [place] [address] Dr. Tha Cowan Specimen adequacy: Comment Normal [facility] Comment on above: Result Comment: Sati sfactory for evaluation. Endocervical and/or squamous metaplastic cells (endocervical component) are present. Performed at: WB Performed By: #### 4 [id number] #### [facility] [address] [place] [address] Dr. Tha Cowan COVID Quick Testingon 2021 Result Negative [employer] Other XR ELBOW LT MIN 3 VIEWSon XR ELBOW LT MIN 3 VIEWS EXAM: XR ELBOW LT MIN 3 VIEWS HISTORY: Traumatic injury COMPARISON: None. TECHNIQUE: 3 views left elbow FINDINGS: No acute displaced fracture or dislocation is evident. No joint effusion. Soft tissues are unremarkable. IMPRESSION: Negative radiographic evaluation for fracture. Electronically authenticated by: NIDIA PIPER Date: 2021-10-28 14:44 Normal [facility] Provider Letteron 08-28-2020 Provider Letter August 28, 2020 Dear Rena, We have been trying to reach you with no success. It is important that you return our call regarding your appointment upon receiving this letter. Thank you for your prompt attention to this matter. Sincerely, [facility] [address] [place] [address] Normal [facility] Ambulatory Clinical Summaryo n 11-15-2019 Ambulatory Clinical Summary {[id number] Normal [facility] Gynecology Office/Clinic Not lakshmi 11-15-2019 Gynecology Office/Clinic Note Chief Complaint Annual, Having pain in left Side. States she had Ultrasound at [facility] and was neg. Obstetric History History (0,0,0,1) # 1 Baby 1 Outcome Date: 03/10/2012 Outcome: Live Outcome or Result: Vaginal Gender: Female Gest Age: 38 weeks 2 days Wt: 3232 g Hospital: [facility] Labor: 7 hr 20 min Child's Name: -- Baby's Father: -- Anesthesia Type: Epidural Labor: No Complications: None Complications: None HPI Staff 34 Years year old patient here for annual exam. Last pap 10-17-2018 Negative HPV Neg.. Last mammogram _. Last colonoscopy _. Method of contraception Loestrin. History of Present Illness Agree with above staff HPI. Pt presents for annual exam today. She uses Loestrin Fe 1.07/19 for contraception. Periods are normal on the pills. She has pain in her left side and had pelvic US in [place] recently and states it was normal. Pain has gotten worse over past few months but has been there 6+ months. She is on linzess for constipation. Denies need for STD testing. Review of Systems ROS ? Provider Constitutional: No fever, No chills, No sweats, No weakness. No Weight change; No fatigue. Skin: No rash, No lesions. ENMT: No ear pain, No sore throat, No congestion. Respiratory: No shortness of breath, No cough, No orthopnea, No wheezing. Cardiovascular: No chest pain, No palpitations, No peripheral edema. Gastrointestinal: No nausea, No vomiting, No diarrhea, No GI bleeding. Genitourinary: No dysuria, No hematuria, No discharge, No pain. Gynecology: No abnormal vaginal discharge, No vaginal itching/burning, No vaginal dryness, No painful periods, No abnormal bleeding, No pelvic pain, No painful intercourse Breast: No breast pain, No skin changes, No masses/lumps, No nipple discharge. Musculoskeletal: No back pain, No trauma. Neurological: No headache, No dizziness, No numbness, No weakness. Psychiatric: No sleeping problems, No irritability, No mood swings/depression. Heme/Lymph: No bleeding tendency, No bruising tendency, No petechiae, No swollen. Physical Exam Vitals & Measurements T: 37.1 ?C (Temporal Artery) BP: 122/76 HT: 170.2 cm HT: 170.18 cm WT: 82.4 kg WT: 82.4 kg BMI: 28.45 General Exam: Constitutional: alert, no acute distress, well hydrated, well developed, well nourished. Skin: normal color, no rashes, no lesions, no unusual bruising. Head: atraumatic, normocephalic. Eyes: EOM intact, no nystagmus, no icterus. Ears: no external deformities, gross hearing intact. Breasts: skin/areolae normal, no masses, no nipple discharge, no erythema/warmth/tend erness, axillae normal. Respiratory: no respiratory distress. Abdomen: nondistended, nontender, no guarding, no masses. Spine: normal mobility, no deformities. Extremities: no deformities, no clubbing, no cyanosis, no edema. Neurol: normal, cranial nn II-XII grossly intact, sensation intact, motor intact, station & gait normal. Psych: oriented to all spheres, affect and mood appropriate, normal interaction, good eye contact. Pelvic Exam: Vulva: normal appearance, normal hair distribution, no lesions or masses. Right labia hypertrophy. Urethra: normal, no masses, non-tender, no discharge. Bladder: normal, non-tender, non-distended. Vagina: normal, rugated, physiologic discharge, no lesions, no masses, adequate pelvic support. Cervix: normal, midposition, no motion tenderness, no lesions. Uterus: smooth, mobile, non-tender, adequate support. Adnexa: normal, no masses, mobile. Left adnexal tenderness. Assessment/Plan 1. 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 Due 2023. Recommend monthly self breast exams. Follow up in 1 year or with problems. Ordered: Pelvic and Breast Exam G0101 Periodic Comp Preventive Med 65+ Yrs Est 2. Oral contraceptive use (Z30.41: Encounter for surveillance of contraceptive pills) Continue on pills as prescribed. Ordered: Periodic Comp Preventive Med 65+ Yrs Est 3. LLQ pain (R10.32: Left lower quadrant pain) Due to her history of bowel issues and that female involvement has been ruled out, recommend for pt to go to GI next for workup. Ordered: Periodic Comp Preventive Med 65+ Yrs Est Orders: ethinyl estradiol-norethindr one, 1 tab(s), Oral, Daily, 84 tab(s), Refill(s) 4, [id number], 170.2, cm, 11/15/19 9:21:00 EDT, Height/Length Dosing, 82.4, kg, 11/15/19 9:21:00 EDT, Weight Dosing Follow-up With When Contact Information Grecia PEREZ In [address] [place] [address]- Additional Instructions: Problem List/Past Medical History Ongoing Hypertriglyceridemia LLQ pain Oral contraceptive use Overweight Historical Procedure/Surgical History Ankle (02/20/2018), Total ankle replacement ( (more content not included)... Normal [facility] Comment on above: Result Comment: Elec tronically Signed By: Grecia PEREZ\.br\Date and Time Signed: 11/15/19 09:40 EDT Patient Educationon 11-15-19 20 Patient Education Family Medicine Preventive Care for Adults, Female A healthy lifestyle and preventive care can promote health and wellness. Preventive health guidelines for women include the following rogers practices. ? A routine yearly physical is a good way to check with your caregiver about your health and preventive screening. It is a chance to share any concerns and updates on your health, and to receive a thorough exam. ? Visit your dentist for a routine exam and preventive care every 6 months. Mccamey your teeth twice a day and floss once a day. Good oral hygiene prevents tooth decay and gum disease. ? The frequency of eye exams is based on your age, health, family medical history, use of contact lenses, and other factors. Follow your caregiver's recommendations for frequency of eye exams. ? Eat a healthy diet. Foods like vegetables, fruits, whole grains, low-fat dairy products, and lean protein foods contain the nutrients you need without too many calories. Decrease your intake of foods high in solid fats, added sugars, and salt. Eat the right amount of calories for you.?Get information about a proper diet from your caregiver, if necessary. ? Regular physical exercise is one of the most important things you can do for your health. Most adults should get at least 150 minutes of moderate-intensity exercise (any activity that increases your heart rate and causes you to sweat) each week. In addition, most adults need muscle-strengthening exercises on 2 or more days a week. ? Maintain a healthy weight. The body mass index (BMI) is a screening tool to identify possible weight problems. It provides an estimate of body fat based on height and weight. Your caregiver can help determine your BMI, and can help you achieve or maintain a healthy weight.?For adults 20 years and older: ? A BMI below 18.5 is considered underweight. ? A BMI of 18.5 to 24.9 is normal. ? A BMI of 25 to 29.9 is considered overweight. ? A BMI of 30 and above is considered obese. ? Maintain normal blood lipids and cholesterol levels by exercising and minimizing your intake of saturated fat. Eat a balanced diet with plenty of fruit and vegetables. Blood tests for lipids and cholesterol should begin at age 20 and be repeated every 5 years. If your lipid or cholesterol levels are high, you are over 50, or you are at high risk for heart disease, you may need your cholesterol levels checked more frequently.?Ongoing high lipid and cholesterol levels should be treated with medicines if diet and exercise are not effective. ? If you smoke, find out from your caregiver how to quit. If you do not use tobacco, do not start. ? If you are , do not drink alcohol. If you are , be very cautious about drinking alcohol. If you are not and choose to drink alcohol, do not exceed 1 drink per day. One drink is considered to be 12 ounces (355 mL) of beer, 5 ounces (148 mL) of wine, or 1.5 ounces (44 mL) of liquor. ? Avoid use of street drugs. Do not share needles with anyone. Ask for help if you need support or instructions about stopping the use of drugs. ? High blood pressure causes heart disease and increases the risk of stroke. Your blood pressure should be checked at least every 1 to 2 years. Ongoing high blood pressure should be treated with medicines if weight loss and exercise are not effective. ? If you are 55 to 79 years old, ask your caregiver if you should take aspirin to prevent strokes. ? Diabetes screening involves taking a blood sample to check your fasting blood sugar level. This should be done once every 3 years, after age 45, if you are within normal weight and without risk factors for diabetes. Testing should be considered at a younger age or be carried out more frequently if you are overweight and have at least 1 risk factor for diabetes. ? Breast cancer screening is essential preventive care for women. You should practice breast self-awareness. This means understanding the normal appearance and feel of your breasts and may include breast self-examination. Any changes detected, no matter how small, should be reported to a caregiver. Women in their 20s and 30s should have a clinical breast exam (CBE) by a caregiver as part of a regular health exam every 1 to 3 years. After age 40, women should have a CBE every year. Starting at age 40, women should consider having a mammography (breast X-ray test ) every year. Women who have a family history of breast cancer should talk to their caregiver about genetic screening. Women at a high risk of breast cancer should talk to their caregivers about having magnetic resonance imaging (MRI) and a mammography every year. ? The Pap test is a screening test for cervical cancer. A Pap test can show cell changes on the cervix that might become cervical cancer if left untreated. A Pap test is a procedure in which cells are obtained and examined from the lower end of the uterus (cervix ). ? Women should have a Pap test starting at age 21. ? Between ages 21 (more content not included)... Normal [facility] Vital Signs Date Time Vital Sign Value Performing Clinician Facility 02-28-2024 13:07-0500 Body height 165.1 cm Katheryn Eligio DO Work Phone: [facility] 02-28-2024 13:07-0500 Body mass index (BMI) [Ratio] 28.29 kg/m2 Katheryn Eligio DO Work Phone: [facility] 02-28-2024 13:07-0500 Body weight 77.11 kg Katheryn Eligio DO Work Phone: [facility] 02-28-2024 13:07-0500 Diastolic blood pressure 70 mm[Hg] Katheryn Eligio DO Work Phone: [facility] 02-28-2024 13:07-0500 Systolic blood pressure 116 mm[Hg] Katheryn Eligio DO Work Phone: [facility] 09-27-2023 13:59-0400 Body mass index (BMI) [Ratio] 25.63 kg/m2 [facility] 09-27-2023 13:59-0400 Body weight 69.85 kg [facility] 09-27-2023 13:59-0400 Diastolic blood pressure 74 mm[Hg] [facility] 09-27-2023 13:59-0400 Systolic blood pressure 118 mm[Hg] [facility] 05-09-2023 15:34-0400 Body height 172.72 cm [facility] 05-09-2023 15:34-0400 Body mass index (BMI) [Ratio] 25.8 kg/m2 [facility] 05-09-2023 15:34-0400 Body weight 77.11 kg [facility] 05-09-2023 15:34-0400 Diastolic blood pressure 80 mm[Hg] [facility] 05-09-2023 15:34-0400 Systolic blood pressure 136 mm[Hg] [facility] 02-05-2022 13:15-0500 Body height 170.18 cm Anthony Higgins Other [facility] 02-05-2022 13:15-0500 Body temperature 98.2 [degF] Anthony Higgins Other [facility] 02-05-2022 13:15-0500 Diastolic blood pressure 90 mm[Hg] Anthony Higgins Other [facility] 02-05-2022 13:15-0500 Respiratory rate 18 /min Anthony Higgins Other [facility] 02-05-2022 13:15-0500 SaO2% (BldA) [Mass fraction] 98 % Anthony [place] Other [facility] Other 02-05-2022 13:15-0500 Systolic blood pressure 131 mm[Hg] Anthony Ronaldo Other [facility] Other 12-27-2021 18:10-0500 Body height 170.18 cm Anthony Higgins Other [facility] Other 12-27-2021 18:10-0500 Body mass index (BMI) [Ratio] 24.9 kg/m2 Anthony Ronaldo Other [facility] Other 12-27-2021 18:10-0500 Body temperature 97.5 [degF] Anthony Ronaldo Other [facility] Other 12-27-2021 18:10-0500 Body weight 72.12 kg Anthony [place] Other [facility] Other 12-27-2021 18:10-0500 Diastolic blood pressure 94 mm[Hg] Anthony [place] Other [facility] Other 12-27-2021 18:10-0500 Respiratory rate 18 /min Anthony Gonzalezaker Other [facility] Other 12-27-2021 18:10-0500 SaO2% (BldA) [Mass fraction] 98 % Anthony [place] Other [facility] Other 12-27-2021 18:10-0500 Systolic blood pressure 137 mm[Hg] Anthony Higgins Other [facility] Other Encounters Encounter Date Encounter Type Care Provider Facility Start: 02-28-2024 End: 02-28-2024 Bamboo flowsheet Katheryn Eligio DO Work Phone: [facility] Start: 02-28-2024 End: 03-05-2024 Bamboo flowsheet Katheryn Eligio DO Work Phone: [facility] Start: 02-28-2024 End: 03-05-2024 Clinisync Result Encounter Katheryn Eligio DO Work Phone: [facility] Unsolicited Start: 02-28-2024 End: 02-28-2024 Patient encounter procedure Katheryn Eligio DO Work Phone: [facility] Comment on above: Well woman exam with routine gynecological exam; Acute cough Start: 02-28-2024 End: 02-28-2024 ambulatory KATHERYN ELIGIO Not Available Start: 09-27-2023 End: 09-27-2023 Office outpatient visit 5 minutes [facility] Eligio Nurse [facility] Comment on above: Encounter for weight management Start: 09-27-2023 End: 09-27-2023 ambulatory SMITHA KEMAR Not Available Start: 08-13-2023 End: 08-13-2023 Letter encounter [facility] Start: 06-27-2023 End: 06-27-2023 ambulatory SMITHA KEMAR Not Available Start: 06-19-2023 End: 06-19-2023 ambulatory SMITHA KEMAR Not Available Start: 05-09-2023 End: 05-09-2023 ambulatory [facility] Work Phone: Start: 05-09-2023 End: 05-09-2023 Patient encounter procedure [facility] [place] Work Phone: Start: 05-07-2023 Letter encounter [facility] Work Phone: Start: 07-19-2022 End: 07-20-2022 ambulatory NARENDRANATH LAKSHMIPATHY . Facility:[facility] Start: 07-12-2022 End: 07-13-2022 ambulatory RAPHAEL MUHAMMAD Facility:[facility] Start: 06-28-2022 End: 06-29-2022 ambulatory JOSE DAVID ROSSI Facility:[facility] Start: 06-23-2022 End: 06-23-2022 ambulatory Sandra Garcia Facility:[facility] Start: 06-23-2022 Office outpatient ne w 30 minutes Sandra Garcia [facility] Start: 06-23-2022 End: 06-23-2022 ambulatory MD Heather Chawla Work Phone: [facility] Work Phone: Start: 06-23-2022 End: 06-23-2022 Patient encounter procedure MD Heather Chawla Work Phone: [facility] [place] [facility] Start: 06-23-2022 End: 06-24-2022 ambulatory NARENDRANATH LAKSHMIPATHY . Facility:[facility] Start: 05-26-2022 End: 05-27-[address] HEATHER CHAWLA Facility:[facility] Start: 05-03-2022 Letter encounter Josafat basurto Start: 04-27-2022 End: 04-28-[address] HEATHER CHAWLA Facility:[facility] Start: 02-05-2022 End: 02-05-2022 ambulatory Anthony Higgins Other [facility] Other Start: 02-05-2022 Office outpatient vi sit 15 minutes Anthony Higgins [facility] Start: 01-25-2022 End: 01-25-[address] HEATHER CHAWLA Facility:[facility] Start: 12-27-2021 End: 12-27-2021 ambulatory Anthony Higgins Other [facility] Other Start: 12-27-2021 Office outpatient vi sit 15 minutes Anthony Higgins [facility] Start: 10-28-2021 End: 10-28-[address] HEATHER CHAWLA Facility:[facility] Start: 10-27-2021 End: 10-28-2021 ambulatory RAPHAEL MUHAMMAD Facility:[facility] Start: 10-01-2021 End: 10-02-2021 ambulatory FIONA GAMING . Facility:[facility] Start: 08-29-2016 End: 08-30-2016 ambulatory UNKNOWN PROVIDER Facility:[facility] Procedures Date Procedure Procedure Detail Performing Clinician Start: 02-28-2024 IGP,APTIMA HPV,AGE GDLN Katheryn Del Valle DO Work Phone: Start: 05-09-2023 Quick Strep (POC) Start: 06-23-2022 Plain X-ray of left wrist MD Heather Chawla Work Phone: Plan of Treatment Date Care Activity Detail Author Start: 08-02-2035 Shingles (RZV) Vacci ne (1 of 2) Shingles (RZV) Vaccine (1 of 2) [facility] Start: 03-04-2025 End: 03-04-2025 Patient encounter procedure 03/04/2025 1:00 PM EST Office Visit [facility] [address] [place] [address] Katheryn Del Valle, DO [address] [place] [place] [address] [facility] Start: 02-28-2024 End: 02-28-2024 Patient encounter procedure [facility] Comment on above: Arrived Start: 10-21-2022 COVID-19 Vaccine ( season) COVID-19 Vaccine ( season) [facility] Start: 10-21-2022 Influenza vaccination Influenza Vacc ine [facility] Start: 11-20-2021 Influenza vaccination Influenza Vacc ine (#1) [facility] Start: 08-20-2016 Annual wellness visit Annual W colleenness Visit (G0438) [facility] Start: 2012 HPV Vaccine (optiona l start 27-45 years) HPV Vaccine (optional start 27-45 years) [facility] Start: 2006 Screening for malign ant neoplasm of cervix Pap Smear [facility] Start: 2004 Hepatitis A (HAV) Vaccine (optional start 19+ years) Hepatitis A (HAV) Vaccine (optional start 19+ years) [facility] Start: 2004 Hepatitis B vaccination Hepati tis B (HBV) Vaccine (1 of 3 - 19+ 3-dose series) [facility] Start: 08-02-2003 Hepatitis C screening Hepatitis C An tibody [facility] Start: 08-02-2003 Tetanus + diphtheria + acellular pertussis vaccine (product) Tdap Booster [facility] Start: 2000 HIV screening HIV Test [facility] Start: 01-31-1986 COVID-19 Vaccine (#1) COVID-19 Vacci ne (#1) [facility] Start: 1985 Hepatitis B vaccination Hepati tis B (HBV) Vaccine (1 of 3 - 3-dose series) [facility] Start: 1985 Screening for malign ant neoplasm of breast Mammography shared decision making (35 through 39 years) [facility] Cytology Cervical or vaginal smear or scraping study Pap Smear Pathology and Cytology Routine Well woman exam with routine gynecological exam Ordered: 02/28/2024 [facility] Work Phone: Comment on above: Ordered: 02/28/2024 Human papilloma viru s DNA [Presence] in Unspecified specimen by Probe with amplification HPV DNA probe, amplified Microbiology Routine Well woman exam with routine gynecological exam Ordered: 02/28/2024 [facility] Comment on above: Ordered: 02/28/2024 Payers Date Payer Category Payer Self-pay 2020 Medicare (Managed Care) [employer] [id number] 2020 Medicare [id number] 2015 [facility] [id number] 2015-Present [address] [place] [address] Medicaid [id number] 2013 Medicare [id number] 2013 Medicare [id number] 1985 Unknown [id number] 2.16.840.1.786747.3.579.2. 732 1985 Unknown [id number] 2.16.840.1.401722.3.579.2. 593 1985 Unknown [id number] 2.16.840.1.299447.3.579.2. 593 1985 Unknown [id number] 2.16.840.1.978107.3.579.2. 593 1985 Unknown [id number] 2.16.840.1.302051.3.579.2. 593 1985 Unknown [id number] 2.16.840.1.430488.3.579.2. 593 1985 Unknown [id number] 2.16.840.1.147420.3.579.2. 593 1985 Unknown [id number] 2.16.840.1.550839.3.579.2. 593 1985 Unknown [id number] 2.16.840.1.501972.3.579.2. 593 1985 Unknown [id number] 2.16.840.1.457824.3.579.2. 593 1985 Unknown [id number] 2.16.840.1.619511.3.579.2. 593 1985 Unknown [id number] 2.16840.1.152431.3.579.2. 1259 1985 Unknown [id number] 2.16.840.1.785492.3.579.2. 1259 1985 Unknown [id number] 2.16840.1.686390.3.579.2. 1259 1985 Unknown [id number] 2.16840.1.867735.3.579.2. 1259 1959 Medicaid [id number] 1959 Medicare [id number] Medicare [id number] [id number] Unknown Regular Insurance [id number] Unknown [id number] [id number]. 531 Social History Date Type Detail Facility Unknown if ever smoked [facility] Other Start: 07-09-2018 End: 06-19-2023 Sex Assigned At [facility] Other Start: 07-10-2011 End: 01-26-2023 Tobacco smoking status [facility] Never smoked tobacco [facility] Work Phone: Start: 07-10-2011 Tobacco use and exposure Smokeless tobacco non-user [facility] Start: 07-10-2021 End: 02-28-2024 Alcohol intake Current drinker of alcohol (finding) [facility] Start: 07-10-2021 End: 06-19-2023 Alcohol intake [facility] Start: 07-11-2011 Alcohol Comment 4 beers per we ekend outing, once a week [facility] Start: 1985 Sex Assigned At Not on file [facility] Start: 1985 Sex Assigned At Female F [facility] How often to you hav e a drink containing alcohol? Never [facility] How many standard drinks containing alcohol do you have on a typical day? 1 or 2 [facility] How often do you hav e 6 or more drinks on 1 occasion? Monthly [facility] Clinical Notes 10-27-2021 to 02-28-2024 Britt Weathers, MULTI PURPOSE MACHINE OPERATOR - 02/28/2024 1:00 PM [place]arell [place], MULTI PURPOSE MACHINE OPERATOR - 09/27/2023 1:30 PM EDT Note Date & Type Note Facility 02-28-2024 History of Presen t illness Narrative Reason for Appointment: Patient ID: Rena Juan is a 38 y.o. female who presents for Gynecologic Exam Patient presents today for Annual Exam. MEDICATIONS Current Outpatient Medications Medication Instructions Calcium Carb-Cholecalciferol (CALCIUM 500 + D PO) 500 mg, Oral, Daily cholecalciferol (VITAMIN D-3) 2,000 Units, Oral, Daily DULoxetine (Cymbalta) [address] capsule TAKE 1 TO 2 CAPSULES BY MOUTH ONCE DAILY fexofenadine ODT (LISA ODT) 30 mg, Oral, Daily Linzess 290 mcg, Oral, Daily before breakfast magnesium 200 mg, Oral, Daily meclizine (ANTIVERT) 25 mg, Oral, 3 times daily PRN metFORMIN XR (GLUCOPHAGE-XR) 500 mg, Oral, Daily with evening meal naproxen (NAPROSYN) 500 mg, Oral, 2 times daily with meals norethindrone-ethinyl estradiol (Junel 03/11) 1-20 MG-MCG tablet 1 tablet, Oral, Daily, Take 1 tablet by mouth daily phentermine (ADIPEX-P) 37.5 mg, Oral, Daily before breakfast traMADol (Ultram) 50 MG tablet 1-2 tablets Orally BID PRN ankle/foot pain for 30 days Vitamin C 500 mg, Oral, Daily Zinc 10 MG lozenge Zinc zonisamide (Zonegran) 50 MG capsule TAKE 1 CAPSULE BY MOUTH IN THE MORNING AND 2 CAPSULES AT BEDTIME zonisamide (ZONEGRAN) 100 mg, Oral, 2 times daily ALLERGIES Allergies Allergen Reactions Penicillins Hives, Itching, Rash and Swelling Fever, rash, swelling PROBLEMS Active Ambulatory Problems Diagnosis Date Noted No Active Ambulatory Problems Resolved Ambulatory Problems Diagnosis Date Noted No Resolved Ambulatory Problems Past Medical History: Diagnosis Date Acute pelvic pain Anemia Ankle pain, right Arthritis Avascular necrosis of right talus (CMS/HCC) Deformity of right ankle joint Depression with anxiety Encounter for gynecological examination (general) (routine) without abnormal findings Failed total joint replacement, initial encounter (CMS/HCC) Foot pain, right History of stomach ulcers 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, right ankle (CMS/HCC) Painful orthopaedic hardware (HCC) (CMS/HCC) Peroneal tendinitis, right Post-traumatic arthritis of right ankle HISTORY PAST MEDICAL HISTORY SOCIAL HISTORY Past Medical History: Diagnosis Date Acute pelvic pain Anemia Ankle pain, right Arthritis Avascular necrosis of right talus (CMS/HCC) Deformity of right ankle joint Depression with anxiety Depression/anxiety Encounter for gynecological examination (general) (routine) without abnormal findings Failed total joint replacement, initial encounter (CMS/HCC) Foot pain, right History of stomach ulcers 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, right ankle (CMS/HCC) Painful orthopaedic hardware (HCC) (CMS/HCC) Peroneal tendinitis, right Post-traumatic arthritis of right ankle Social History Tobacco Use Smoking status: Never Smokeless tobacco: Not on file Substance Use Topics Alcohol use: Yes Drug use: Never FAMILY HISTORY Family History Problem Relation Name Age of Onset Hypertension Mother Hypertension Sister Diabetes Sister Hypertension Maternal Grandmother Diabetes Maternal Grandfather Hypertension Maternal Grandfather SURGICAL HISTORY Past Surgical History: Procedure Laterality Date ANKLE FRACTURE SURGERY Right 2011 3 screws put in ANKLE SURGERY Left 02/2017 talar replacement with custom device, joint fusion - Dr. Muhammad CYST REMOVAL Cysts FOOT SURGERY Right 12/2019 SALPINGOOPHORECTOMY Right Ovary & Tube Removed WRIST FRACTURE SURGERY Left 2011 metal plate put in REVIEW OF SYSTEMS Review of Systems: Review of Systems Constitutional: Negative. HENT: Negative. Eyes: Negative. Respiratory: Negative. Cardiovascular: Negative. Gastrointestinal: Negative. Genitourinary: Negative. Musculoskeletal: Negative. Skin: Negative. Neurological: Negative. All other systems reviewed and are negative. Hematological: Negative. Endocrine: Negative. Allergic/Immunologic: Negative. OBJECTIVE Objective: Physical Exam Constitutional: Appearance: Normal appearance. She is well-developed. Genitourinary: Vulva normal. Breasts: Breasts are soft. Right: Normal. Left: Normal. Cardiovascular: Rate and Rhythm: Normal rate and regular rhythm. Pulmonary: Effort: Pulmonary effort is normal. Breath sounds: Normal breath sounds. Abdominal: General: Bowel sounds are normal. There is no distension. Palpations: Abdomen is soft. Tenderness: There is no abdominal tenderness. There is no guarding or rebound. Musculoskeletal: General: No swelling. Normal range of motion. Right lower leg: No edema. Left lower leg: No edema. Neurological: Mental Status: She is alert and oriented to person, place, and time. Skin: General: Skin is warm and dry. Psychiatric: Mood and Affect: Mood normal. Behavior: Behavior normal. Vitals and nursing note reviewed. Exam conducted with a watch hairspring assembler present. Vitals: Estimated body mass index is 28.29 kg/m as calculated from the following: Height as of 02/14/23: 5' 5 . Weight as of this encounter: 170 lb. BP: 116/70 Patient's last menstrual period was 02/14/2024 (approximate). ASSESSMENT & PLAN ICD-10-CM 1. Well woman exam with routine gynecological exam Z01.419 Pap Smear HPV DNA probe, amplified Annual Exam: Patient presents today for an annual exam. Patient states she is doing well and has complaints. Pap was obtained without difficulty. Orders Placed This Encounter Procedures HPV DNA probe, amplified Follow Up: Patient is to return in one year for annual unless needed otherwise. Documented by Britt Weathesr LPN on behalf of: Katheryn Del Valle DO documented in this encounter [facility] 09-27-2023 History of Presen t illness Narrative Reason for Appointment: Patient ID: Rena Juan is a 38 y.o. female who presents for Weight Management Patient presents today for a weight management consultation. Patient has been prescribed Adipex and she is here for her 4th prescription. Today's Vitals: Estimated body mass index is 25.63 kg/m as calculated from the following: Height as of 02/14/23: 5' 5 . Weight as of this encounter: 154 lb. Previous Weight/BMI: Wt Readings from Last 2 Encounters: 09/27/23 154 lb 06/27/23 182 lb 12.8 oz BMI Readings from Last 2 Encounters: 09/27/23 25.63 kg/m 06/27/23 30.42 kg/m Allergies as of 09/27/2023 - Reviewed 09/27/2023 Allergen Reaction Noted Penicillins Hives, Itching, Rash, and Swelling 07/10/2011 Past Medical History: Diagnosis Date Acute pelvic pain Anemia Ankle pain, right Arthritis Avascular necrosis of right talus (CMS/HCC) Deformity of right ankle joint Depression with anxiety Depression/anxiety Encounter for gynecological examination (general) (routine) without abnormal findings Failed total joint replacement, initial encounter (CMS/HCC) Foot pain, right History of stomach ulcers 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 Muhammad CYST REMOVAL Cysts FOOT SURGERY Right 12/2019 SALPINGOOPHORECTOMY Right Ovary & Tube Removed WRIST FRACTURE SURGERY Left 2011 metal plate put in Assessment/Plan Encounter Diagnosis Name Primary? Encounter for weight management Adipex: Patient presents today for 4th Adipex prescription. Patients weight and blood pressure has been captured and discussed with the patient. I have discussed/reiterated the importance of keeping a food journal, proper nutrition/diet, and exercise regimen while taking Adipex. Patient verbalized understanding but she was unable to be given script due to BMI being less than 30. Documented by: Deneen Park LPN on behalf of CAROLINA Sanchez documented in this encounter [facility] 07-12-2022 Note PROCEDURE: XR FOOT L T MIN 3 VIEWS HISTORY: Pain in left foot ; follow-up left fifth metatarsal stress fracture COMPARISON: XR foot left 06/28/2022 FINDINGS: BONES:Small residual cortical irregularity along the lateral margin of the base the fifth metatarsal. SOFT TISSUES:No visible soft tissue swelling. EFFUSION:None visible. OTHER: Negative. IMPRESSION: 1. Mild, healing, stress fracture at base of fifth metatarsal versus sequela of remote cortical injury. Electronically authenticated by: JAVIER LAYTON Date: 2022-07-12 14:23 [facility] 06-29-2022 Note PROCEDURE: XR FOOT L T MIN 3 VIEWS COMPARISON: None. HISTORY: Pain FINDINGS: BONES:No fracture, acute abnormality, or significant arthropathy. SOFT TISSUES:Negative. No visible soft tissue swelling. EFFUSION:None visible. OTHER: Negative. IMPRESSION: No acute radiographic abnormality Electronically authenticated by: TAYLA HANNON Date: 2022-06-29 07:25 [facility] 06-23-2022 Evaluation note Encounter Date Diagnosis Assessment Notes June, Left wrist pain (ICD-10 - M25.532) June, Contusion of left wrist, initial encounter (ICD-10 - S60.212A) Extensive discussion about current condition and treatment options available. The patient appears to have suffered a wrist contusion. We will allow progressive gentle wrist motion as pain allows. We discussed the importance of icing and elevation of the arm above the heart to prevent swelling. Bernard wrap applied [facility] 05-04-2023 NoteCONSULTATION CONSULTATION DATE: 06/23/2022 TO: Heather Chawla M.D. CHIEF COMPLAINT: Includes right ankle pain. HISTORY: She returns today for nurse follow up, to monitor her response to a change in medication. At her last visit on 05/26/2022, we increased the gabapentin to 600 mg pills, two in the morning, one in the afternoon and two at bedtime. She reports it did nothing to improve her pain symptoms and is complicated by progressive dry mouth and, at times, dizziness. RECOMMENDATIONS: At this time, I have recommended we wean off of the gabapentin. We have given her a weaning protocol. We will trial her on Zonegran 50 mg pills, one pill up to two pills at h.s. We will increase this gradually as tolerated. We will follow up with the patient in our office in one month's time to monitor her response to the change in medication once again, and at the same time, we will be happy to overtake prescribing her meds in prescribing her use of tramadol. As part of providing excellent, safe, comprehensive care, the following was completed at our patient's visit: 1. A medication reconciliation and review to ensure accurate knowledge of current/active medications, including asking our patients to inform us about any pegj-tvo-nhkktph medications or herbal remedies/nutritional supplements/alternative remedies. 2. A review to specifically ensure our patients have had annual screening for: elevated body mass index (BMI, see intake chart for exact total), tobacco use, screening for depression, and screening for unhealthy alcohol use. When screening is concerning, patients are provided with education and the specific recommendation to discuss the concerning health issue and treatment options with their primary care provider.[facility] [id number] Note CONSULTATION CONSULTATION DATE: 05/26/2022 TO: Heather Chawla M.D. CHIEF COMPLAINT: Includes right foot pain, right ankle pain. HISTORY: She reports the pain being 5-7/10 pain, sharp in character, increased with activities such as standing, walking and performing transitioning maneuvers. She feels most comfortable in the semi-recumbent position. She denied any change in bowel and bladder habits or new sensorimotor changes in the lower extremities. EXAM: Her examination is notable for patient having dysesthesia and hyperesthesia overlying the distribution of the right medial plantar nerve. The patient had reduced range of motion of the right ankle to dorsiflex, plantar flexion, inversion and eversion. Also appeared to be significant contracture deformity of the plantaris muscle on the right side. Patient also had patchy areas of hyperpathia and allodynia overlying the ankle on the medial aspect of the right side. I could not appreciate any dermatographia, skin color changes, hair growth changes, but there may have been some nail growth changes, right side compared to left side. 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 At this point, it is unlikely the patient has significant complex regional pain syndrome type 1 or type 2. PLAN: We have increased the gabapentin 600 mg, two in the morning, one in the afternoon and two at bedtime. We will have her return to the office in four weeks' time to monitor her response to the change in medication. She will follow up with the nurse at that time. As part of providing excellent, safe, comprehensive care, the following was completed at our patient's visit: 1. A medication reconciliation and review to ensure accurate knowledge of current/active medications, including asking our patients to inform us about any yrii-ljf-vrvaivi medications or herbal remedies/nutritional supplements/alternative remedies. 2. A review to specifically ensure our patients have had annual screening for: elevated body mass index (BMI, see intake chart for exact total), tobacco use, screening for depression, and screening for unhealthy alcohol use. When screening is concerning, patients are provided with education and the specific recommendation to discuss the concerning health issue and treatment options with their primary care provider.[facility] [id number] NotePROCEDURE: XR ANKLE RT MIN 3 VIEWS, XR FOOT RT MIN 3 VIEWS COMPARISON: 10/27/2021 HISTORY: Pain of right ankle joint FINDINGS: BONES:Talus arthroplasty. Tibial plafond arthroplasty. Posterior calcaneal osteotomy. Remote osteotomy and surgical staple placement base of the first metatarsal. Remote healed fracture of the fifth metatarsal. Stable degenerative changes. No new fracture, dislocation or mechanical failure SOFT TISSUES:Negative. No visible soft tissue swelling. EFFUSION:None visible. OTHER: Negative. IMPRESSION: Stable postsurgical changes Electronically authenticated by: TAYLA HANNON Date: 2022-04-27 10:29[facility]03-08-2023 NotePROCEDURE: XR ANKLE RT MIN 3 VIEWS, XR FOOT RT MIN 3 VIEWS COMPARISON: 10/27/2021 HISTORY: Pain of right ankle joint FINDINGS: BONES:Talus arthroplasty. Tibial plafond arthroplasty. Posterior calcaneal osteotomy. Remote osteotomy and surgical staple placement base of the first metatarsal. Remote healed fracture of the fifth metatarsal. Stable degenerative changes. No new fracture, dislocation or mechanical failure SOFT TISSUES:Negative. No visible soft tissue swelling. EFFUSION:None visible. OTHER: Negative. IMPRESSION: Stable postsurgical changes Electronically authenticated by: TAYLA HANNON Date: 2022-04-27 10:29[facility]12-17-2022 Evaluation note* Encounter Date Diagnosis Assessment Notes Treatment Notes Treatment Clinical Notes Jan, Sore throat (ICD-10 - J02.9) Jan, Acute bronchitis, unspecified organism (ICD-10 - J20.9) She is positive for influenza A. However, unfortunately, she is out of the oseltamivir tx window. She does appear to be developing secondary bronchitis. Will prescribe zpak, prednisone, and codeine cough medicine. She is given return precautions. She understands and agrees with the plan. Jan, Cough (ICD-10 - R05.9) [facility] 11-07-2022 Evaluation note* Encounter Date Diagnosis Assessment Notes Treatment Notes Treatment Clinical Notes Dec, Cough (ICD-10 - R05.9) Dec, Acute non-recurrent pansinusitis (ICD-10 - J01.40) Sinus infections can be triggeredby a secondary infection; usually a viral URI or even seasonal allergies. Take medications as directed. Use saline nasal spray prior to presciption nasal spray. Complete all doses of medication even if you start to feel better. Symptoms should improve during treatment period. Follow up with primary care provider if no improvement of symptoms occur by end of treatment. Rapid covid test is negative. Sign and symptoms consistent with acute sinusitis. Will prescribe doxycycline and prednisone given her discomfort. Pt given return precautions. She understands and agrees with the plan. [facility] 09-07-2022 NotePROCEDURE: XR ANKLE RT MIN 3 VIEWS, XR TIB_FIB RT 2V, XR FOOT RT MIN 3 VIEWS HISTORY: Pain of right ankle joint ; fell COMPARISON: None. FINDINGS: BONES:Prosthetic replacement of the talus and articular surface of the tibial plafond. Remote calcaneal osteotomy and repair. Bone staple within proximal first metatarsal. Remote fracture and healing of fifth metatarsal, and possibly base of fourth metatarsal. SOFT TISSUES:No visible soft tissue swelling. EFFUSION:None visible. OTHER: Negative. IMPRESSION: 1. Stable surgical changes without evidence of hardware failure or change in alignment. 2. No acute bone abnormality. Electronically authenticated by: JAVIER LAYTON Date: 2021-10-27 14:08[facility]09-07-2022 NotePROCEDURE: XR ANKLE RT MIN 3 VIEWS, XR TIB_FIB RT 2V, XR FOOT RT MIN 3 VIEWS HISTORY: Pain of right ankle joint ; fell COMPARISON: None. FINDINGS: BONES:Prosthetic replacement of the talus and articular surface of the tibial plafond. Remote calcaneal osteotomy and repair. Bone staple within proximal first metatarsal. Remote fracture and healing of fifth metatarsal, and possibly base of fourth metatarsal. SOFT TISSUES:No visible soft tissue swelling. EFFUSION:None visible. OTHER: Negative. IMPRESSION: 1. Stable surgical changes without evidence of hardware failure or change in alignment. 2. No acute bone abnormality. Electronically authenticated by: JAVIER LAYTON Date: 2021-10-27 14:08[facility]09-07-2022 NotePROCEDURE: XR ANKLE RT MIN 3 VIEWS, XR TIB_FIB RT 2V, XR FOOT RT MIN 3 VIEWS HISTORY: Pain of right ankle joint ; fell COMPARISON: None. FINDINGS: BONES:Prosthetic replacement of the talus and articular surface of the tibial plafond. Remote calcaneal osteotomy and repair. Bone staple within proximal first metatarsal. Remote fracture and healing of fifth metatarsal, and possibly base of fourth metatarsal. SOFT TISSUES:No visible soft tissue swelling. EFFUSION:None visible. OTHER: Negative. IMPRESSION: 1. Stable surgical changes without evidence of hardware failure or change in alignment. 2. No acute bone abnormality. Electronically authenticated by: JAVIER LAYTON Date: 2021-10-27 14:08[facility] CenterEvaluation noteNo assessment information availableAdena [facility] Center Work Phone: Evaluation note* Diagnosis Encounter for weight management documented in this encounter [facility] HealthcareEvaluation note* Diagnosis Well woman exam with routine gynecological exam Routine gynecological examination Acute cough documented in this encounter [facility] HealthcareHistory general Narrative - Reported* Type Description Date Medical History allergies Medical History constipation Medical History anxiety Surgical History right ankle transplant Surgical History left wrist Surgical History right ovary removed Surgical History [facility] Other Summary Purpose Family History No Family History Records FoundNo Family History Records FoundNo Family History Records FoundNo Family History Records FoundNo Family History Records Found Advance Directives Latest Code Status on File Code Status Date Activated Date Inactivated Comments Full Code 07/14/2011 5:19 PM 07/22/2011 4:30 PM Code Status History Code Status Date Activated Date Inactivated Comments Full Code 07/10/2011 12:20 PM 07/14/2011 5:19 PM Advance Directive Response Recorded Date/ Time Advance Directives No June 29 9:30am Date Activated Date Inactivated Comments 07/14/2011 5:19 PM 07/22/2011 4:30 PM Date Activated Date Inactivated Comments 07/10/2011 12:20 PM 07/14/2011 5:19 PM Chief Complaint and Reason for Visit Chief Complaint sore throat, fatigue Additional Source Comments INFORMATION SOURCE (unrecogn ized section and content) DATE CREATED AUTHOR 08/29/2020 [facility] DATE CREATED AUTHOR AUTHOR'S ORGANIZ ATION 04/03/2021 [facility] DATE CREATED AUTHOR AUTHOR'S ORGANIZ ATION 06/30/2022 [facility] DATE CREATED AUTHOR AUTHOR'S ORGANIZ ATION 07/29/2022 [facility] DATE CREATED AUTHOR AUTHOR'S ORGANIZ ATION 03/05/2024 [facility] EPIC REASON FOR VISIT (unrecogniz ed section and content) Reason Comments Weight Management Reason Comments Gynecologic Exam Care Teams (unrecognized sec tion and content) Team Status: Active Member Role Status Dates Heather Chawla MD Primary Care Provider Active Team Status: Inactive Member Role Status Dates Heather Chawla MD Primary Care Provider Active DESI RamosC Attending Provider Active Team Status: Inactive Member Role Status Dates Heather Chawla MD Primary Care Provider Active Start: May 09, 2023 End: May 09, 2023 Dion Ellison PA-C Attending Provider Active St art: May 09, 2023 End: May 09, 2023 Enamel Drier Relationship Specialty Start Date End Date Heather Chawla MD [address] [place] [id number] PCP - General 02/07/23 Enamel Drier Relationship Specialty Start Date End Date Heather Chawla MD [address] [place] [id number] PCP - General 02/07/23 Enamel Drier Relationship Specialty Start Date End Date Heather Chawla MD [address] [place] [phone] PCP - General 02/07/23 Enamel Drier Relationship Specialty Start Date End Date Heather Chawla MD [address] [place] [address] PCP - General 02/07/23 Goals (unrecognized section and content) Goals may be documented in a n alternate section FOR RECORDS PERTAINING TO PATIENTS WHO ARE OR HAVE BEEN ENROLLED IN A CHEMICAL DEPENDENCY/SUBSTANCEABUSE PROGRAM, SOME INFORMATION MAY BE OMITTED. This clinical summary was aggregated from multiple sources. Caution should be exercised in using it in the provision of clinical care. This summary normalizes information from multiple sources, and as a consequence, information in this document may materially change the coding, format and clinical context of patient data. In addition, data may be omitted in some cases. CLINICAL DECISIONS SHOULD BE BASED ON THE PRIMARY CLINICAL RECORDS. [facility] [employer] [facility]. provides no warranty or guarantee of the accuracy or completeness of information in this document.
--- NOTE | 2024-03-13 13:24 | P.CN_ITS ---
Consult Note: HPI Data of Consult Patient: known to practice within the last 3 years Requesting Physician: Nohelia Scott NP Primary Care Provider: Toshia Blue Consult Narrative Reason for consult: f/u Narrative: Rena Juan a pleasant 38 year old female presents for evaluation and management of right foot pain, hx of numerous surgeries and continues to follow with podiatry PRN. Today patient rating pain 5-6/10 in bilateral feet increasing to 8-9/10, throbbing and hurting. Has noticed improvement with zonegran 100mg BID, flexeril, naproxen and PRN tramadol. denies side effects. recently ran out of zonegran and has noticed increase in her pain since stopping. cc:: CC: Nohelia Scott NP Review of Systems ROS Status of ROS 10 or more systems reviewed and unremark able except as noted in history and below Musculoskeletal Reports: extremity pain PFSH [facility] Medical History (Updated 05/31/23 @ 09:32 by Laura Meza RN) Osteoarthritis of right ankle ?M19.071 - Primary osteoarthritis, right ankle and foot (ICD-10) Neuropathy of right foot ?G57.91 - Unspecified mononeuropathy of right lower limb (ICD-10) Surgical History History of right salpingo-oophorectomy ?Z90.79 - Acquired absence of other genital organ(s) (ICD-10) ?Z90.721 - Acquired absence of ovaries, unilateral (ICD-10) History of open reduction and internal fixation (ORIF) procedure ?Z98.890 - Other specified postprocedural states (ICD-10) History of total ankle replacement ?Z96.669 - Presence of unspecified artificial ankle joint (ICD-10) Meds Home Medications and Allergies Home Medications ?Medication ?Instructions ?Recorded ?Confirmed ?Type cyclobenzaprine 10 mg tablet 10 mg PO DAILY 02/15/23 02/15/23 History duloxetine 60 mg capsule,delayed 60 mg PO DAILY 02/15/23 02/15/23 History release linaclotide 290 mcg capsule 290 mcg PO DAILY 02/15/23 02/15/23 History (Linzess) meclizine 25 mg tablet 25 mg PO BID 02/15/23 02/15/23 History norethindrone 1 mg-ethinyl 1 tab PO DAILY 02/15/23 02/15/23 History estradiol 20 mcg (24)-iron 75 mg (4) tablet () tramadol 50 mg tablet 50 mg PO DAILY PRN pain 02/15/23 02/15/23 History zinc gluconate 50 mg tablet 50 mg PO DAILY 02/15/23 02/15/23 History zonisamide 50 mg capsule 50 mg PO BID #90 caps 05/31/23 Rx Allergies Allergy/AdvReac Type Severity Reaction Status Date / Time Penicillins Allergy Unknown Verified 02/15/23 10:52 Exam Constitutional Documenting provider has reviewed patient's vital signs: yes Common normals: no apparent distress, oriented x3, healthy appearing, alert and well nourished General appearance: cooperative HENMT Common normals: normocephalic, hearing grossly normal bilaterally and moist oral mucous membranes Head and scalp: normocephalic Eye Common normals: PERRL Pupil: PERRL Neck & C-Spine Common normals: full ROM General: normal visual inspection Chest Common normals: inspection of chest normal Respiratory Common normals: normal respiratory effort, no retractions and no use of accesso ry muscles Extremity Right lower extremity: ankle joint and foot and digits Left lower extremity: ankle joint and foot and digits Other: scarring noted on right foot. hx of left foot stress fx limited ROM in bilateral feet intermittent coolness and edema Neuro Common normals: oriented x3, CN's II-XII intact bilaterally, moves all extremities, no focal motor deficits, no sensory deficits noted and deep tendon reflexes 2+ bilaterally Sensorium/orientation: alert Motor exam: strength 5/5 throughout and no movement abnormalities noted Psych Common normals: mental status grossly normal, thought process normal, cooperative, affect normal, speech normal and activity/motor behavior normal Speech: normal speech Thought process: normal thought process Results Additional Findings Additional findings: If on a controlled substance or opioids, I have checked an [place] report on this patient and there are no aberrancies noted in the prescribing history.??If on a controlled substance or opioid a drug screen was completed and reviewed within the last year, and if there has not been a drug screen completed we ordered one today to monitor higher risk, state monitored pain medication use. As part of providing excellent, safe, comprehensive care, the following was completed at our patient's visit: 1. A medication reconciliation and review to ensure accurate knowledge of current/active medications, including asking our patients to inform us about any tpax-kdo-jyxfean medications or herbal remedies/nutritional supplements/alternative remedies. 2. A review to specifically ensure our patients have had annual screening for screening for depression, screening for tobacco use, and screening for unhealthy alcohol use. For concerning screenings had a discussion with the patient, provided patient education, and recommended follow-up with primary care provider when appropriate. If patient noted with a risk of falling, they received education on strength, gait, and balance training to prevent future risk of falling. Portions of this note may have been carried over from the previous visit and updated as appropriate. Please note this office utilizes paper charting in addition to the electronic medical record. A list of current medications, vitals, and PMH is available there as the clinical staff outside of myself do not have access to [employer] charting during the clinic day operations. As part of providing quality comprehensive care the current medications, vitals, and PMH were reviewed in the paper chart. Assessment and Plan Assessment and Plan (1) Chronic pain in right foot: (2) Left ankle pain: (3) Chronic pain syndrome: Plan continue zonegran 100mg BID continue f/u with podiatry PRN continue f/u with PCP, they manage tramadol and flexeril f/u 6 months, sooner if needed
== END 2024-03-13 12:41 | disposition home or self-care (01) ==
PROVIDERS: PCP Physician Assistant; Visit Provider Nurse Practitioner
DX: M79.671 Pain in right foot (principal); M25.572 Pain in left ankle and joints of left foot; G89.4 Chronic pain syndrome
CPT/HCPCS: G0463

== ENCOUNTER 2024-06-14 12:41 | Outpatient (OUT) | payer MEDICARE, SELFPAY ==
--- NOTE | 2024-06-14 12:50 | XR_ITS ---
[facility] [place] [id number] Patient Name: ETHAN BRADY MRN: [id number] date: 1985 Sex: F Assigned Patient Location: [facility] Current Patient Location: [facility] Accession/Order Number: [id number] Exam Date: 06/14/2024 13:30 Report Date: 06/14/2024 13:31 At the request of: RAPHAEL WILSON DPHetal Procedure: XR foot RT min 3V RIGHT FOOT - 3 views CLINICAL HISTORY: Acute right foot pain dorsal and plantar signs of foot after softball injury 3 days ago COMPARISON: None FINDINGS: Ankle prosthesis is in place without radiographic complication. Hardware fixation is seen involving the first metatarsal without hardware complication. Bones are grossly demineralized. Scattered degenerative changes without acute bony process or bony erosions. Presumed prior injury involving the fifth metatarsal. XR/XR foot RT min 3V IMPRESSION: NO HARDWARE COMPLICATION. SCATTERED DEGENERATIVE CHANGES WITHOUT ACUTE BONY PROCESS. Impression dictated by: Mike Kitchen Jr., D.O. 06/14/2024 1:31 PM Dictation Location: [place] [address] Electronically authenticated by: [id number] Y Date: 06/14/2024 13:31
== END 2024-06-14 12:42 | disposition home or self-care (01) ==
LOC: RAD 12:44
PROVIDERS: PCP Family Medicine; Visit Provider Podiatrist Foot & Ankle Surgery
DX: S90.31XA Contusion of right foot, initial encounter (principal); Z96.661 Presence of right artificial ankle joint
CPT/HCPCS: 73630

== ENCOUNTER 2024-09-05 09:30 | Outpatient (OUT) | payer MEDICARE, SELFPAY ==
--- OUTSIDE RECORDS SUMMARY | 2024-09-05 09:34 | XMS_ITS | Encounter Summary ---
Author Organization [facility] Address [address] [place] [address] Care Team Providers Care Electrical Maintenance Supervisor Name Role Phone Marquita Chawla MD Primary Care Provider [phone] Encounter Details Date Type Department Care Team (Late st Contact Info) Description 06/27/2023 Clinisync Result Encounter [facility] External Department Unsolicited Toshia Reinoso PA [address] [place] [address] Social History Tobacco Use Types Packs/Day Years Used Date Smoking Tobacco: Never Alcohol Use Standard Drinks/Week Comments Yes 0 (1 standard drink = 0.6 oz pur e alcohol) AUDIT-C Answer Date Recorded Q1: How often do you have a drink containing alc ohol? Never 01/26/2023 Q2: How many drinks containi ng alcohol do you have on a typical day when you are drinking? 1 or 2 01/26/2023 Q3: How often do you have six or more drinks on one occasion? Monthly 01/26/2023 Comments No Sex and Gender Information Value Date Recorded Sex Assigned at Not on file Legal Sex Female 8:00 PM EDT Gender Identity Not on file Sexual Orientation Not on file documented as of this encounter Plan of Treatment Upcoming Encounters Date Type Department Care Team (Late st Contact Info) Description 03/04/2025 1:00 PM EST Office Visit [facility] [address] [place] [phone] Emiliano Del Valle, DO [address] [place] [address] documented as of this encounter Procedures Procedure Name Priority Date/Time Associated Diagnosis Comments US PELVIS W/ TRANSVAGINAL 06/27/2023 11:01 AM EDT documented in this encounter Results * US PELVIS W/ TRANSVAGINAL (06/27/2023 11:01 AM EDT) Anatomical Region Laterality Modality Other 06/27/2023 11:0 1 AM EDT Narrative 06/27/2023 11:04 AM EDT [address] [address] Ultrasound Report Signed Patient: Ethan Juan MR#: [id number] : 1985 Acct:[id number] Age/Sex: 37 / F ADM Date: 06/27/23 Loc: US Attending Dr: Toshia Reinoso Ordering Physician: Toshia Reinoso Date of Service: 06/27/23 Procedure(s): US pelvis w/ transvaginal Accession Number(s): [id number] cc: Toshia Reinoso [address] [address] Patient Name: ETHAN JUAN MRN: [id number] date: 1985 Sex: F Assigned Patient Location: US Current Patient Location: [place] Accession/Order Number: [id number] Exam Date: 06/27/2023 10:18 Report Date: 06/27/2023 11:01 At the request of: TOSHIA REINOSO Procedure: US pelvis w/ transvaginal EXAMINATION: US pelvis w/ transvaginal HISTORY: Pain Of Ovary N94.89 ; left pelvic pain COMPARISON: No relevant comparison available. TECHNIQUE: Transabdominal and/or transvaginal sonographic examination was performed as indicated by examination type. FINDINGS: UTERUS: Normal size and appearance. Uterus size: 6.9 x 4.4 x 4.1 cm ENDOMETRIUM: Normal homogeneous appearance. Endometrial thickness: 9 mm RIGHT OVARY: Oophorectomy LEFT OVARY: Normal size and appearance. Duplex Doppler demonstrates normal waveform and flow; resistive index 0.6. Ovary size: 2.6 x 1.5 x 1.2 cm CUL-DE-SAC: Unremarkable. No significant free fluid. BLADDER: Unremarkable. OTHER: None. US/US pelvis w/ transvaginal IMPRESSION: 1. Unremarkable uterus and left ovary. No suspicious adnexal findings to account for patient's symptoms. 2. Prior right oophorectomy. Electronically authenticated by: KEATON BAILEY Date: 06/27/2023 11:01 Dictated By: Keaton Bailey M.D. Signed By: 06/27/23 1104 DD/ 1101 TD/TT: Prior Authorization Nurse: Procedure Note Radiology, Radiologist, - 06/27/2023 [facility] [place] [id number] Ultrasound Report Signed Patient: Ethan Juan LMR#: [id number] : 1985Acct:[id number] Age/Sex: 37 / FADM Date: 06/27/23 Loc: US Attending Dr: Toshia Reinoso Ordering Physician: Toshia Reinoso Date of Service: 06/27/23 Procedure(s): US pelvis w/ transvaginal Accession Number(s): [id number] cc: Toshia Reinoso The [address] [address] Patient Name: ETHAN JUAN MRN: [id number] date: 1985 Sex: F Assigned Patient Location: US Current Patient Location: US Accession/Order Number: [id number] Exam Date: 06/27/2023 10:18 Report Date: 06/27/2023 11:01 At the request of: TOSHIA REINOSO Procedure: US pelvis w/ transvaginal EXAMINATION: US pelvis w/ transvaginal HISTORY: Pain Of Ovary N94.89 ; left pelvic pain COMPARISON: No relevant comparison available. TECHNIQUE: Transabdominal and/or transvaginal sonographic examination was performed as indicated by examination type. FINDINGS: UTERUS: Normal size and appearance. Uterus size: 6.9 x 4.4 x 4.1 cm ENDOMETRIUM: Normal homogeneous appearance. Endometrial thickness: 9 mm RIGHT OVARY: Oophorectomy LEFT OVARY: Normal size and appearance. Duplex Doppler demonstrates normal waveform and flow; resistive index 0.6. Ovary size: 2.6 x 1.5 x 1.2 cm CUL-DE-SAC: Unremarkable. No significant free fluid. BLADDER: Unremarkable. OTHER: None. US/US pelvis w/ transvaginal IMPRESSION: 1. Unremarkable uterus and left ovary. No suspicious adnexal findings to account for patient's symptoms. 2. Prior right oophorectomy. Electronically authenticated by: KEATON BAILEY Date: 06/27/2023 11:01 Dictated By: Keaton Bailey M.D. Signed By:06/27/23 1104 DD/ 1101 TD/TT: Prior Authorization Nurse: us [facility] Final Result documented in this encounter Visit Diagnoses Not on filedocumented in this encounter Care Teams Electrical Maintenance Supervisor Relationship Specialty Start Date End Date Marquita Chawla MD [address] [place] [address] PCP - General 02/07/23 documented as of this encounter
--- OUTSIDE RECORDS SUMMARY | 2024-09-05 09:34 | XMS_ITS | Encounter Summary ---
Author Organization [facility] Address [address] [place] [address] Care Team Providers Care Take Away Man Name Role Phone Marquita Chawla MD Primary Care Provider [phone] Encounter Details Date Type Department Care Team (Late st Contact Info) Description 03/11/2024 Orders Only [facility] [address] [place] [address] Claire Dwyer LPN [address] [place] [id number] Social History Tobacco Use Types Packs/Day Years [...] EST Office Visit [facility] [address] [address] Emiliano Del Valle, [address] [place] [address] documented as of this encounter Procedures Procedure Name Priority Date/Time Associated Diagnosis Comments PAP SMEAR Routine 02/28/2024 12:00 AM EST documented in this encounter Results * Pap Smear (02/28/2024 12:00 AM EST) Swab Cervical swab / Unknown Eligio Nurse [facility] CYTOLOGY ORDERABLES Final Result EXTERNAL LAB documented in this encounter Visit Diagnoses Not on filedocumented in this encounter Care Teams Take Away Man Relationship Specialty Start Date End Date Marquita Chawla MD [address] [place] [address] PCP - General 02/07/23 documented as of this encounter
--- OUTSIDE RECORDS SUMMARY | 2024-09-05 09:34 | XMS_ITS | Clinical Summary ---
Author Organization [facility] Address [address] [place] [address] Care Team Providers Care Software Validation Engineer Name Role Phone Marquita Chawla MD Primary Care Provider Allergies Active Allergy Reactions Criticality Noted Date Comments Penicillins Hives,Itching,Rash,S well ing Low 07/10/2011 Fever, rash, swelling Medications Linzess 290 MCG capsule Take 290 mcg by mouth in the morning. Take before meals. Active Ascorbic Acid (Vitamin C) 500 MG capsule Take 500 mg by mouth in the morning. Active fexofenadine ODT (Lisa ODT) 30 MG disintegrating tablet Take 30 mg by mouth in the morning. Active cholecalciferol (Vitamin D-3) 50 MCG (2000 UT) capsule Take 2,000 Units by mouth in the morning. Active naproxen (Naprosyn) 500 MG tablet Take 500 mg by mouth in the morning and 500 mg in the evening. Take with meals. Active magnesium 200 MG tablet Take 200 mg by mouth in the morning. Active meclizine (Antivert) 25 MG tablet Take 25 mg by mouth 3 (three) times a day as needed Active Calcium Carb-Cholecalcifero l (CALCIUM 500 + D PO) Take 500 mg by mouth in the morning. Active Zinc 10 MG lozenge Zinc A ctive traMADol (Ultram) 50 MG tablet 1-2 tablets Orally BID PRN ankle/foot pain for 30 days 3 Active zonisamide (Zonegran) 50 MG capsule TAKE 1 CAPSULE BY MOUTH IN THE MORNING AND 2 CAPSULES AT BEDTIME Active phentermine (Adipex-P) 37.5 MG tabletIndications:E ncounter for weight management Take 1 tablet (37.5 mg) by mouth in the morning. Take before meals. 90 tablet 4 Active DULoxetine (Cymbalta) [address] capsule TAKE 1 TO 2 CAPSULES BY MOUTH ONCE DAILY 4 Active zonisamide (Zonegran) 100 MG capsule Take 100 mg by mouth in the morning and 100 mg before bedtime. 4 Active metFORMIN XR (Glucophage-XR) 500 MG 24 hr tabletIndications:M etabolic syndrome TAKE 1 TABLET (500 MG) BY MOUTH IN THE EVENING. TAKE WITH MEALS 90 tablet 3 4 01/29/20 25 Active omeprazole (PriLOSEC) [address] capsuleIndications: Acute cough Take 1 capsule (20 mg) by mouth in the morning. Take before meals. Do not crush or chew.. 30 capsule 11 5 02/27/19 26 Active Aurovela FE 03/11 1-20 MG-MCG tabletIndications:U ses control TAKE 1 TABLET BY MOUTH EVERY DAY 84 tablet 3 5 Active Family History Medical History Relation Name Comments Diabetes Maternal Grandfather Hypertension Maternal Grandfather Hypertension Maternal Grandmother Hypertension Mother Diabetes Sister Hypertension Sister Relation Name Status Comments Maternal Grandfather Maternal Grandmother Mother Alive Sister Son Alive Social History Tobacco Use Types Packs/Day Years Used Date Smoking Tobacco: Never Tobacco Cessation:Counseling Given: Not Answered Alcohol Use Standard Drinks/Week Comments Yes 0 [...] on file Sexual Orientation Not on file Last Filed Vital Signs Vital Sign Reading Time Taken Comments Blood Pressure 116/70 02/28/2024 1:07 PM EST Pulse - - Temperature - - Respiratory Rate - - Oxygen Saturation - - Inhaled Oxygen Concentration - - Weight 77.1 kg (170 lb) 02/28/2024 1:07 PM EST Height 165.1 cm (5' 5 ) 02/28/2024 1:07 PM EST Body Mass Index 28.29 02/28/2024 1:07 PM EST Plan of Treatment Upcoming Encounters Date Type Department Care Team (Late st Contact Info) Description 03/04/2025 1:00 PM EST Office Visit [facility] [address] [facility] [place] [id number] Emiliano Del Valle, DO [address] [facility] [address] [place] [address] Insurance [employer] Care Teams Software Validation Engineer Relationship Specialty Start Date End Date Marquita Chawla MD [address] [place] [address] PCP - General 02/07/23
--- OUTSIDE RECORDS SUMMARY | 2024-09-05 09:52 | XMS_ITS | CCD ---
Author Organization [facility] Care Team Providers Care Oncology Account Specialist Name Role Phone PROVIDER, UNKNOWN Attending Unavailable PROVIDER, UNKNOWN Admitting Unavailable VIVIANA BOONE Referring Unavailable Ronaldo Anthony Unavailable Unavailable Primary Care Provider MD Heather Matos Primary Care Provider [phone] GLYNN Garcia Attending Provider Sandra Garcia Unavailable [...] MEKHI ., FIONA Attending Unavailable MEKHI ., FIONA Admitting Unavailable RENATA, DR HEATHER An Primary [...] Unavailable Heather Chawla MD Primary Care Provider Unavailable Primary Care Provider Unavailarsenio e SMITHA REINOSO Attending Unavailable SMITHA REINOSO Attending Unavailable SMITHA REINOSO Attending Unavailable KATHERYN DEL VALLE Attending Unavailable Allergies Allergy Classification Reported Allergen(s) Allergy Type Date of Onset Reaction(s) Facility (11 sources) Penicillins; Translations: [PENICILLINS] Propensity to adverse reactions to drug (disorder) 2 Hives, Itching, Rash, Swelling [facility] Repository (3 sources) Penicillin G Drug Allergy fever, hives [employer] Other (1 source) Desonide Drug Allergy The [facility] Repository Medications Current Medications Medication Drug [...] capsule by mouth once daily ergocalciferol (DRISDOL) 32464 UNITS capsule Take 1 Cap by mouth [...] GDLNon AGE GDLN ACOG TESTING Note . [facility] Healthcare Comment on above: TESTS RESULT FLAG UN ITS REF RANGE LAB Clinician Provided Cytology Information Source.............Cervix;Endocervix No. of containers..01 ThinPrep Vial Age Algo ACOG Jazmín... 3065 FLAG LEGEND: L-Low Normal,H-High Normal,LL-Alert Low,HH-Alert High <-Panic Low,>-Panic High,A-Abnormal,AA-Critical Abnormal Performed at: 01 =G [address] [place] [address] Rachana Vines MD, HPV APTIMA Negative Negative [facility] Comment on above: This nucleic acid am plification test detects fourteen high- risk HPV types (16,18,31,33,35,39,45,51,52,56,58,59,66,68) without differentiation. Performed at: =[facility] [employer] [address], [place] [id number] Radio Time Buyer: Rachana Vines MD, Phone: [phone] Performed at: [facility] [address] [address] [place], [place] [id number] Radio Time Buyer: Luis F Almeida MD, Phone: [phone] IGP, APTIMA HPV, RFX 16/18,45 Note . [facility] Comment on above: TESTS RESULT FLAG UN ITS REF RANGE LAB DIAGNOSIS: 02 NEGATIVE FOR INTRAEPITHELIAL LESION OR MALIGNANCY. Specimen adequacy: 02 Satisfactory for evaluation. Endocervical and/or squamous metaplastic cells (endocervical component) are present. Performed by: 02 Ghislaine Crocker, Fourth Grade Teacher (ASCP) . 02 Note: Note 03 The [...] High <-Panic Low,>-Panic High,A-Abnormal,AA-Critical Abnormal Performed at: [facility] [address] [address] [place] [address] Luis F Almeida MD, [address] [facility] [address] [address] Rachana Vines MD, BRUSH-SPATULA CERVIX ENDOCERVIX [facility] No Panel InformationOrdered By: Dion Ellison on 05-09-2023 Quick Strep (POC) [facility] XR wrist LT min 3V*on 2022 XR wrist LT min 3V* [facility] [place] [address] XRay Report Signed Patient: Rena Juan MR#: [id number] : 1985 Acct:[id number] Age/Sex: 36 / F ADM Date: 06/23/22 Loc: [facility] Room: [facility] Attending Dr: Sandra WEEKSC Copies to: AALIYAH [...] Pablo Watts M.D.06/23/2022 2:08 PM Dictation Location: [place] [address] Transcribed By: [facility] 06/23/22 140 Dictated By: Pablo Watts DO 06/23/221403 Signed By: 06/23/221407 Normal [facility] COVID/FLU/RSV RT-PCRon 02-05 SARS-CoV-2 (COVID-19) RNA TANI+probe Ql (Unsp spec) Negative [employer] Other COVID/FLU/RSV RT-PCR Positive [facility] [employer] Other COVID/FLU/RSV RT-PCR negagtive [employer] Other COVID/FLU/RSV RT-PCR Negative [facility] [employer] Other Quick Strepon 02-05-2022 S. pyogenes Org specific cx Ql (Throat) Negative [facility] [employer] Other Quick Strep [facility] [employer] Other PAP ACOG PANEL 2: 30 to 65on 02-03-2022 . . Normal [facility] Comment on above: Result Comment: Perf ormed at: WB Performed By: #### 4 [id number] #### [facility] [address] [address] [address] Tha Cowan Age Gdln ACOG Testing 30-65 Normal [facility] Comment on above: Performed By: #### 4 [id number] #### [facility] [address] [address] [address] Tha Cowan DIAGNOSIS: Comment Normal [facility] Comment on above: Result Comment: NEGA TIVE FOR INTRAEPITHELIAL LESION OR MALIGNANCY. Performed at: WB Performed By: #### 4 [id number] #### [facility] [address] [address] [address] Tha Cowan HPV Aptima Negative Normal Negative [facility] Comment on above: Result Comment: This nucleic acid amplification test detects fourteen high-risk HPV types (16,18,31,33,35,39,45,51,52,56,58,59,66,68) without differentiation. Performed at: =G Performed By: #### 4 [id number] #### [facility] [address] [address] [address] Tha Cowan HPV Genotype Reflex Comment Normal [facility] Comment on above: Result Comment: Crit eria not met, HPV Genotype not performed. Performed at: WB Performed By: #### 4 [id number] #### [facility] [address] [address] [address] Tha Cowan Methodology: Comment Normal [facility] Comment on above: Result Comment: This liquid based ThinPrep(R) pap test was screened with the use of an image guided system. Performed at: WB Performed By: #### 4 [id number] #### [facility] [address] [place] [address] Dr. Tha Cowan Note: Comment Normal [facility] Comment on above: Result Comment: The Pap smear is a screening test designed to aid in the detection of premalignant and malignant conditions of the uterine cervix. It is not a diagnostic procedure and should not be used as the sole means of detecting cervical cancer. Both false-positive and false-negative reports do occur. . Performed at: WB Performed By: #### 4 [id number] #### [facility] [address] [place] [address] Dr. Tha Cowan Performed by: Comment Normal [facility] Comment on above: Result Comment: Rosalba Booker, Fourth Grade Teacher (ASCP) Performed at: WB Performed By: #### 4 [id number] #### [facility] [address] [place] [address] Dr. Tha Cowan Specimen adequacy: Comment Normal [facility] Comment on above: Result Comment: Sati sfactory for evaluation. Endocervical and/or squamous metaplastic cells (endocervical component) are present. Performed at: WB Performed By: #### 4 [id number] #### [facility] [address] [place] [address] Dr. Tha Cowan COVID Quick Testingon 2021 Result Negative [employer] Other XR ELBOW LT MIN 3 VIEWSon XR ELBOW LT MIN 3 VIEWS EXAM: XR ELBOW LT MIN 3 VIEWS HISTORY: Traumatic injury COMPARISON: None. TECHNIQUE: 3 views left elbow FINDINGS: No acute displaced fracture or dislocation is evident. No joint effusion. Soft tissues are unremarkable. IMPRESSION: Negative radiographic evaluation for fracture. Electronically authenticated by: NIDIA PIPER Date: 2021-10-28 14:44 Normal [facility] Provider Letteron 08-28-2020 Provider Letter August 28, 2020 Dear Rena, We have been trying to reach you with no success. It is important that you return our call regarding your appointment upon receiving this letter. Thank you for your prompt attention to this matter. Sincerely, [facility] [address] [place] [address] Normal [facility] Ambulatory Clinical Summaryo n 11-15-2019 Ambulatory Clinical Summary {[id number]}CD:[id number] Normal [facility] Gynecology Office/Clinic Not lakshmi 11-15-2019 Gynecology Office/Clinic Note Chief Complaint Annual, Having pain in left Side. States she had Ultrasound at [facility] and was neg. Obstetric History History (0,0,0,1) # 1 Baby 1 Outcome Date: 03/10/2012 Outcome: Live Outcome or Result: Vaginal Gender: Female Gest Age: 38 weeks 2 days Wt: 3232 g Hospital: [facility] Labor: 7 hr 20 min Child's [...] left side and had pelvic US in [place] recently and states it was normal. Pain [...] adnexal tenderness. Assessment/Plan 1. 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 Normal [facility] Comment on above: Result Comment: Elec tronically [...] exam and preventive care every 6 months. Hubbard your teeth twice a day and floss [...] ages 21 (more content not included)... Normal [facility] Vital Signs Date Time Vital Sign Value Performing Clinician Facility 02-28-2024 13:07-0500 Body height 165.1 cm Katheryn Eligio DO Work Phone: [facility] 02-28-2024 13:07-0500 Body mass index (BMI) [Ratio] 28.29 kg/m2 Katheryn Eligio DO Work Phone: [facility] 02-28-2024 13:07-0500 Body weight 77.11 kg Katheryn Eligio DO Work Phone: [facility] 02-28-2024 13:07-0500 Diastolic blood pressure 70 mm[Hg] Katheryn Eligio DO Work Phone: [facility] 02-28-2024 13:07-0500 Systolic blood pressure 116 mm[Hg] Katheryn Eligio DO Work Phone: [facility] 09-27-2023 13:59-0400 Body mass index (BMI) [Ratio] 25.63 kg/m2 [facility] Nurse [facility] 09-27-2023 13:59-0400 Body weight 69.85 kg [facility] Nurse [facility] 09-27-2023 13:59-0400 Diastolic blood pressure 74 mm[Hg] [facility] Nurse [facility] 09-27-2023 13:59-0400 Systolic blood pressure 118 mm[Hg] [facility] Nurse [facility] 05-09-2023 15:34-0400 Body height 172.72 cm [facility] 05-09-2023 15:34-0400 Body mass index (BMI) [Ratio] 25.8 kg/m2 [facility] 05-09-2023 15:34-0400 Body weight 77.11 kg [facility] 05-09-2023 15:34-0400 Diastolic blood pressure 80 mm[Hg] [facility] 05-09-2023 15:34-0400 Systolic blood pressure 136 mm[Hg] [facility] 02-05-2022 13:15-0500 Body height 170.18 cm Anthony Higgins Other [employer] Other 02-05-2022 13:15-0500 Body temperature 98.2 [degF] Anthony Higgins Other [employer] Other 02-05-2022 13:15-0500 Diastolic blood pressure 90 mm[Hg] Anthony Higgins Other [employer] Other 02-05-2022 13:15-0500 Respiratory rate 18 /min Anthony Higgins Other [employer] Other 02-05-2022 13:15-0500 SaO2% (BldA) [Mass fraction] 98 % Anthony Kenova Other [employer] Other 02-05-2022 13:15-0500 Systolic blood pressure 131 mm[Hg] Anthony Ronaldo Other [employer] Other 12-27-2021 18:10-0500 Body height 170.18 cm Anthony Higgins Other [employer] Other 12-27-2021 18:10-0500 Body mass index (BMI) [Ratio] 24.9 kg/m2 Anthony Ronaldo Other [employer] Other 12-27-2021 18:10-0500 Body temperature 97.5 [degF] Anthony Ronaldo Other [employer] Other 12-27-2021 18:10-0500 Body weight 72.12 kg Anthony Kenova Other [employer] Other 12-27-2021 18:10-0500 Diastolic blood pressure 94 mm[Hg] Anthony Kenova Other [employer] Other 12-27-2021 18:10-0500 Respiratory rate 18 /min Anthony Gonzalezaker Other [employer] Other 12-27-2021 18:10-0500 SaO2% (BldA) [Mass fraction] 98 % Anthony Kenova Other [employer] Other 12-27-2021 18:10-0500 Systolic blood pressure 137 mm[Hg] Anthony Higgins Other [employer] Other Encounters Encounter Date Encounter Type Care [...] Not Available Start: 05-09-2023 End: 05-09-[address] [facility] Work Phone: Start: 05-09-2023 End: 05-09-2023 Patient encounter procedure [facility] [place] Work Phone: Start: 05-07-2023 Letter encounter [facility] Work Phone: Start: 07-19-2022 End: 07-20-2022 ambulatory NARENDRANATH LAKSHMIPATHY . Facility:[facility] Start: 07-12-2022 End: 07-13-2022 ambulatory RAPHAEL MUHAMMAD Facility:[facility] Start: 06-28-2022 End: 06-29-2022 ambulatory JOSE DAVID ROSSI Facility:[facility] Start: 06-23-2022 End: 06-23-2022 ambulatory Sandra Garcia Facility:[facility] Start: 06-23-2022 Office outpatient ne w 30 minutes Sandra Garcia [facility] Start: 06-23-2022 End: 06-23-2022 ambulatory MD Heather Chawla Work Phone: [facility] Work Phone: Start: 06-23-2022 End: 06-23-2022 Patient encounter procedure MD Heather Chawla Work Phone: [facility] [place] [facility] Start: 06-23-2022 End: 06-24-2022 ambulatory NARENDRANATH LAKSHMIPATHY . Facility:[facility] Start: 05-26-2022 End: 05-27-[address] HEATHER CHAWLA Facility:[facility] Start: 05-03-2022 Letter encounter Josafat basurto Start: 04-27-2022 End: 04-28-[address] HEATHER CHAWLA Facility:[facility] Start: 02-05-2022 End: 02-05-2022 ambulatory Anthony Higgins Other [employer] Other Start: 02-05-2022 Office outpatient vi sit 15 minutes Anthony Higgins [facility] Start: 01-25-2022 End: 01-25-[address] HEATHER CHAWLA Facility:[facility] Start: 12-27-2021 End: 12-27-2021 ambulatory Anthony Higgins Other [employer] Other Start: 12-27-2021 Office outpatient vi sit 15 minutes Anthony Higgins [facility] Start: 10-28-2021 End: 10-28-[address] HEATHER CHAWLA Facility:[facility] Start: 10-27-2021 End: 10-28-2021 ambulatory RAPHAEL MHUAMMAD Facility:[facility] Start: 10-01-2021 End: 10-02-2021 ambulatory FIONA [...] EST Office Visit [facility] [address] [place] [address] Katheryn Del Valle, DO [address] [facility] [place] [address] [facility] Start: 02-28-2024 End: 02-28-2024 Patient encounter procedure [facility] Comment on above: Arrived Start: 10-21-2022 COVID-19 Vaccine ( season) COVID-19 Vaccine ( season) [facility] Start: 10-21-2022 Influenza vaccination Influ[facility] Vacc ine [facility] Start: 11-20-2021 Influenza vaccination Influenza Vacc ine (#1) [facility] Start: 08-20-2016 Annual wellness visit Annual W colleenness Visit (G0438) [facility] Start: 2012 HPV Vaccine (optiona l start 27-45 years) HPV Vaccine (optional start 27-45 years) [facility] Start: 2006 Screening for malign ant neoplasm of cervix Pap Smear [facility] Start: 2004 Hepatitis A (HAV) Vaccine (optional start 19+ years) Hepatitis A (HAV) Vaccine (optional start 19+ years) [facility] Start: 2004 Hepatitis B vaccination Hepati tis B (HBV) Vaccine (1 of 3 - 19+ 3-dose series) [facility] Start: 08-02-2003 Hepatitis C screening Hepatitis C An tibody [facility] Start: 08-02-2003 Tetanus + diphtheria + acellular pertussis vaccine (product) Tdap Booster [facility] Start: 2000 HIV screening HIV Test [facility] Start: 01-31-1986 COVID-19 Vaccine (#1) COVID-19 Vacci ne (#1) [facility] Start: 1985 Hepatitis B vaccination Hepati tis B (HBV) Vaccine (1 of 3 - 3-dose series) [facility] Start: 1985 Screening for malign ant neoplasm of breast Mammography shared decision making (35 through 39 years) [facility] Cytology Cervical or vaginal smear or scraping study Pap Smear Pathology and Cytology Routine Well woman exam with routine gynecological exam Ordered: 02/28/2024 [facility] Work Phone: Comment on above: Ordered: 02/28/2024 Human papilloma viru s DNA [Presence] in Unspecified specimen by Probe with amplification HPV DNA probe, amplified Microbiology Routine Well woman exam with routine gynecological exam Ordered: 02/28/2024 [facility] Comment on above: Ordered: 02/28/2024 Payers Date Payer Category Payer Self-pay 2020 Medicare (Managed Care) [employer] [id number] 2020 Medicare [id number] 2015 Medicaid [facility] [id number] 2015-Present [address] [place] [address] Medicaid [id number] 2013 Medicare [id number] 2013 Medicare [id number] 1985 Unknown [id number] 2.16.840.1.615775.3.579.2. 732 1985 Unknown [id number] 2.16.840.1.754302.3.579.2. 593 1985 Unknown [id number] 2.16.840.1.608413.3.579.2. 593 1985 Unknown [id number] 2.16.840.1.560979.3.579.2. 593 1985 Unknown [id number] 2.16.840.1.160874.3.579.2. 593 1985 Unknown [id number] 2.16.840.1.312710.3.579.2. 593 1985 Unknown [id number] 2.16.840.1.877720.3.579.2. 593 1985 Unknown [id number] 2.16.840.1.188197.3.579.2. 593 1985 Unknown [id number] 2.16.840.1.610145.3.579.2. 593 1985 Unknown [id number] 2.16.840.1.186696.3.579.2. 593 1985 Unknown [id number] 2.16.840.1.449174.3.579.2. 593 1985 Unknown [id number] 2.16840.1.259201.3.579.2. 1259 1985 Unknown [id number] 2.16.840.1.941590.3.579.2. 1259 1985 Unknown [id number] 2.16840.1.407692.3.579.2. 1259 1985 Unknown [id number] 2.16840.1.248934.3.579.2. 1259 1959 Medicaid [id number] 1959 Medicare [id number] [id number] Medicare [id number] 2..[id number] Unknown Regular Insurance [id number] Unknown [id number] 2.840.1.086071.3.579.2. 531 Social History Date Type Detail Facility Unknown if ever smoked [employer] Other Start: 07-09-2018 End: 06-19-2023 Sex Assigned At [employer] Other Start: 07-10-2011 End: 01-26-2023 Tobacco smoking status RUST Never smoked tobacco [facility] Work Phone: Start: 07-10-2011 Tobacco use and exposure Smokeless tobacco non-user [facility] Start: 07-10-2021 End: 02-28-2024 Alcohol intake Current drinker of alcohol (finding) [facility] Start: 07-10-2021 End: 06-19-2023 Alcohol intake [facility] Start: 07-11-2011 Alcohol Comment 4 beers per we ekend outing, once a week [facility] Start: 1985 Sex Assigned At Not on file [facility] Start: 1985 Sex Assigned At Female F [facility] How often to you hav e a drink containing alcohol? Never [facility] How many standard drinks containing alcohol do you have on a typical day? 1 or 2 [facility] How often do you hav e 6 or more drinks on 1 occasion? Monthly [facility] Clinical Notes 10-27-2021 to 02-28-2024 Britt Weathers, THEOLOGY TEACHER - 02/28/2024 1:00 PM Darell Park, THEOLOGY TEACHER - 09/27/2023 1:30 PM EDT Note Date [...] nursing note reviewed. Exam conducted with a project portfolio analyst present. Vitals: Estimated body mass index is [...] annual unless needed otherwise. Documented by Britt Weathers LPN on behalf of: Katheryn Del Valle DO documented in this encounter [facility] 09-27-2023 History of Presen t illness Narrative [...] of CAROLINA Sanchez documented in this encounter [facility] 07-12-2022 Note PROCEDURE: XR FOOT L T [...] authenticated by: JAVIER LAYTON Date: 2022-07-12 14:23 [facility] 06-29-2022 Note PROCEDURE: XR FOOT L T MIN 3 VIEWS COMPARISON: None. HISTORY: Pain FINDINGS: BONES:No fracture, acute abnormality, or significant arthropathy. SOFT TISSUES:Negative. No visible soft tissue swelling. EFFUSION:None visible. OTHER: Negative. IMPRESSION: No acute radiographic abnormality Electronically authenticated by: TAYLA HANNON Date: 2022-06-29 07:25 [facility] 06-23-2022 Evaluation note Encounter Date Diagnosis Assessment [...] heart to prevent swelling. Bernard wrap applied [employer] Other 05-04-2023 NoteCONSULTATION CONSULTATION DATE: 06/23/2022 TO: [...] our patients to inform us about any udmi-vxk-yfkwtcw medications or herbal remedies/nutritional supplements/alternative remedies. 2. [...] treatment options with their primary care provider.[id number] Note CONSULTATION CONSULTATION DATE: 05/26/2022 TO: Heather [...] our patients to inform us about any mklq-haz-snubmpt medications or herbal remedies/nutritional supplements/alternative remedies. 2. [...] treatment options with their primary care provider.[facility] [id number] NotePROCEDURE: XR ANKLE RT MIN 3 VIEWS, [...] Electronically authenticated by: TAYLA HANNON Date: 2022-04-27 10:29[facility]03-08-2023 NotePROCEDURE: XR ANKLE RT MIN 3 VIEWS, [...] Electronically authenticated by: TAYLA HANNON Date: 2022-04-27 10:29[facility]12-17-2022 Evaluation note* Encounter Date Diagnosis Assessment Notes [...] the plan. Jan, Cough (ICD-10 - R05.9) [employer] Other 11-07-2022 Evaluation note* Encounter Date Diagnosis [...] She understands and agrees with the plan. [employer] Other 09-07-2022 NotePROCEDURE: XR ANKLE RT MIN [...] Electronically authenticated by: JAVIER LAYTON Date: 2021-10-27 14:08[facility]09-07-2022 NotePROCEDURE: XR ANKLE RT MIN 3 VIEWS, [...] Electronically authenticated by: JAVIER LAYTON Date: 2021-10-27 14:08[facility]09-07-2022 NotePROCEDURE: XR ANKLE RT MIN 3 VIEWS, [...] Electronically authenticated by: JAVIER LAYTON Date: 2021-10-27 14:08[facility] IncEvaluation noteNo assessment information availableAultman Hospital Work Phone: Evaluation note* Diagnosis Encounter for weight management documented in this encounter [facility] HealthcareEvaluation note* Diagnosis Well woman exam with routine gynecological exam Routine gynecological examination Acute cough documented in this encounter [facility] HealthcareHistory general Narrative - Reported* Type Description Date Medical History allergies Medical History constipation Medical History anxiety Surgical History right ankle transplant Surgical History left wrist Surgical History right ovary removed Surgical History tubes in [facility] [employer] Other Summary Purpose Family History No Family [...] and content) DATE CREATED AUTHOR 08/29/2020 [facility] DATE CREATED AUTHOR AUTHOR'S ORGANIZ ATION 04/03/2021 [facility] DATE CREATED AUTHOR AUTHOR'S ORGANIZ ATION 06/30/2022 [facility] DATE CREATED AUTHOR AUTHOR'S ORGANIZ ATION 07/29/2022 [facility] DATE CREATED AUTHOR AUTHOR'S ORGANIZ ATION 03/05/2024 [facility] dical Specialists EPIC REASON FOR VISIT (unrecogniz [...] May 09, 2023 End: May 09, 2023 Oncology Account Specialist Relationship Specialty Start Date End Date Heather Chawla MD [address] [place] [address] PCP - General 02/07/23 Oncology Account Specialist Relationship Specialty Start Date End Date Heather Chawla MD [address] [place] [address] PCP - General 02/07/23 Oncology Account Specialist Relationship Specialty Start Date End Date Heather Chawla MD [address] [place] [address] PCP - General 02/07/23 Oncology Account Specialist Relationship Specialty Start Date End Date Heather Chawla MD [address] [place] [id number] PCP - General 02/07/23 Goals (unrecognized section [...] BE BASED ON THE PRIMARY CLINICAL RECORDS. [facility]. provides no warranty or guarantee of the accuracy or completeness of information in this document.
--- NOTE | 2024-09-05 09:59 | PM.CN ---
Consult Note: HPI Data of Consult Patient: known to practice within the last 3 years Consult date: 09/05/24 Requesting Physician: Nohelia Scott NP Primary Care Provider: HEATHER YANEZ Consult Narrative Reason for consult: f/u right foot pain Narrative: Rena Juan a pleasant 39 year old female presents for evaluation of right foot/ankle pain post surgery in 2020. Pt has failed to benefit from > 6 weeks of PT/HEP, tylenol, nsaids, heat, ice. failed gabapentin and tylenol. currently utilizing naproxen prn, zonegran, tramadol prn, and flexeril prn with mild benefit. continues to endorse moderate to severe right foot and ankle pain as well as numbness/tingling. cc:: CC: Nohelia Scott NP Review of Systems ROS Musculoskeletal Reports: extremity pain PFSH PFSH Medical History Osteoarthritis of right ankle �M19.071 - Primary osteoarthritis, right ankle and foot (ICD-10) Neuropathy of right foot �G57.91 - Unspecified mononeuropathy of right lower limb (ICD-10) Surgical History History of right salpingo-oophorectomy �Z90.79 - Acquired absence of other genital organ(s) (ICD-10) �Z90.721 - Acquired absence of ovaries, unilateral (ICD-10) History of open reduction and internal fixation (ORIF) procedure �Z98.890 - Other specified postprocedural states (ICD-10) History of total ankle replacement �Z96.669 - Presence of unspecified artificial ankle joint (ICD-10) Meds Home Medications and Allergies Home Medications �Medication �Instructions �Recorded �Confirmed �Type cyclobenzaprine 10 mg tablet 10 mg PO DAILY 02/15/23 02/15/23 History duloxetine 60 mg capsule,delayed 60 mg PO DAILY 02/15/23 02/15/23 History release linaclotide 290 mcg capsule 290 mcg PO DAILY 02/15/23 02/15/23 History (Linzess) meclizine 25 mg tablet 25 mg PO BID 02/15/23 02/15/23 History norethindrone 1 mg-ethinyl 1 tab PO DAILY 02/15/23 02/15/23 History estradiol 20 mcg (24)-iron 75 mg (4) tablet ( Fe ) tramadol 50 mg tablet 50 mg PO DAILY PRN pain 02/15/23 02/15/23 History zinc gluconate 50 mg tablet 50 mg PO DAILY 02/15/23 02/15/23 History zonisamide 50 mg capsule 50 mg PO BID #90 caps 05/31/23 Rx tramadol 50 mg tablet 50 mg PO DAILY PRN pain #7 tabs 04/17/24 Rx zonisamide 50 mg capsule See Rx Instructions .Route 07/03/24 Rx .COMPLEX #90 caps Allergies Allergy/AdvReac Type Severity Reaction Status Date / Time Penicillins Allergy Unknown Verified 02/15/23 10:52 Exam Constitutional Documenting provider has reviewed patient's vital signs: yes Common normals: no apparent distress, oriented x3, healthy appearing, alert and well nourished General appearance: cooperative HENMT Common normals: normocephalic, hearing grossly normal bilaterally and moist oral mucous membranes Head and scalp: normocephalic Eye Common normals: PERRL Pupil: PERRL Neck & C-Spine Common normals: full ROM General: normal visual inspection Chest Common normals: inspection of chest normal Respiratory Common normals: normal respiratory effort, no retractions and no use of accessory muscles Extremity Right lower extremity: ankle joint and foot and digits Other: scarring noted on right foot. hx of left foot stress fx limited ROM with inversion and rotation intermittent coolness and edema to right foot, notable atrophy to RLE compared to left Neuro Common normals: oriented x3, CN's II-XII intact bilaterally, moves all extremities, no focal motor deficits, no sensory deficits noted and deep tendon reflexes 2+ bilaterally Sensorium/orientation: alert Motor exam: strength 5/5 throughout and no movement abnormalities noted Psych Common normals: mental status grossly normal, thought process normal, cooperative, affect normal, speech normal and activity/motor behavior normal Speech: normal speech Thought process: normal thought process Results Additional Findings Additional findings: If on a controlled substance or opioids, I have checked an [place] report on this patient and there are no aberrancies noted in the prescribing history.��If on a controlled substance or opioid a drug screen was completed and reviewed within the last year, and if there has not been a drug screen completed we ordered one today to monitor higher risk, state monitored pain medication use. As part of providing excellent, safe, comprehensive care, the following was completed at our patient's visit: 1. A medication reconciliation and review to ensure accurate knowledge of current/active medications, including asking our patients to inform us about any [id number] medications or herbal remedies/nutritional supplements/alternative remedies. 2. A review to specifically ensure our patients have had annual screening for screening for depression, screening for tobacco use, and screening for unhealthy alcohol use. For concerning screenings had a discussion with the patient, provided patient education, and recommended follow-up with primary care provider when appropriate. If patient noted with a risk of falling, they received education on strength, gait, and balance training to prevent future risk of falling. Portions of this note may have been carried over from the previous visit and updated as appropriate. Please note this office utilizes paper charting in addition to the electronic medical record. A list of current medications, vitals, and PMH is available there as the clinical staff outside of myself do not have access to [facility] charting during the clinic day operations. As part of providing quality comprehensive care the current medications, vitals, and PMH were reviewed in the paper chart. Assessment and Plan Assessment and Plan (1) CRPS (complex regional pain syndrome type I): Assessment and Plan: history of edema, temperature changes, skin changes, muscle atrophy, significant pain and dysthesia post injury and numerous foot surgeries. (2) Osteoarthritis of right ankle: (3) Neuropathy of right foot: (4) Chronic pain in right foot: Plan 39 year old female with chronic severe pain post injury/surgery in 2020. pt no longer following with podiatry. she failed to benefit from > 6 weeks of PT/HEP, heat, ice, tylenol, nsaids in the past. resume zonegran 100mg BID at this time. will update emg/ncv of BLE. consider lumbar sympathetic blocks vs scs. f/u to review emg
== END 2024-09-05 09:31 | disposition home or self-care (01) ==
LOC: PM 09:31
PROVIDERS: PCP Family Medicine; Visit Provider Nurse Practitioner
DX: G90.59 Complex regional pain syndrome I of other specified site (principal); M19.071 Primary osteoarthritis, right ankle and foot; G62.9 Polyneuropathy, unspecified; M79.671 Pain in right foot
CPT/HCPCS: G0463

== ENCOUNTER 2024-10-17 13:10 | Outpatient (OUT) | payer MEDICARE, SELFPAY ==
--- OUTSIDE RECORDS SUMMARY | 2024-10-17 13:22 | XMS_ITS | CCD ---
Author Organization [facility] Care Team Providers Care Student Admissions Clerk Name Role Phone PROVIDER, UNKNOWN Attending Unavailable [...] HEATHER An Primary Care Unavailable FLOJOSE DAVID Consulting Unavailable RENATA, DR HEATHER An Primary Care Unavailable HIGHLANDER, RAPHAEL Guerin Admitting Unavailable HIGHLANDER, RAPHAEL Guerin Attending Unavailable WEST, DR TAYLA Richmond Consulting Unavailable STEVE, RAPHAEL [...] Primary Care Provider Unavailable Primary Care Provider UnavailHeather Teixeira MD Primary Care Provider Demond Lowery DO Attending Provider TOSHIA REINOSO Attending Unavailable TOSHIA REINOSO Attending Unavailable KATHERYN DEL VALLE Attending Unavailable Allergies Allergy Classification Reported Allergen(s) Allergy Type Date of Onset Reaction(s) Facility (17 sources) Penicillins; Translations: [PENICILLINS] Propensity to adverse reactions to drug (disorder) 2 Hives, Itching, Rash, Swelling [facility] Penicillin G Drug Allergy fever, hives [facility] Other (1 source) Desonide Drug Allergy [facility] Repository Medications Current Medications Medication Drug Class(es) Dates Sig (Normalized) Sig (Original) acetaminophen 325 mg oral tablet (3 sources) Start: 07-21-2011 take 2 tablets by mouth every four hours as needed acetaminophen (TYLENOL) 325 MG tablet Take 2 Tabs by mouth every 4 hours as needed. 60 Tab 3 07/21/2011 Active ascorbic acid 500 mg oral capsule (13 sources) Vitamin C take 1 capsule by mouth in the morning Ascorbic Acid (Vitamin C) 500 MG capsule Take 500 mg by mouth in the morning. Active Vitamin C Active Calcium Carb-Cholecalciferol (CALCIUM 500 + D PO) (12 sources) Calcium Carb-Cholecalciferol (CALCIUM 500 + D PO) Take 500 mg by mouth in the morning. Active calcium carbonate 500 mg oral tablet (3 sources) Start: 2012 take 1 tablet by mouth once daily calcium carbonate (OS-MARQUISE) 1250 MG tablet Take 1 Tab by mouth daily. 30 Tab 3 10/03/2012 Active cetirizine hydrochloride 10 mg oral tablet (3 sources) Histamine-1 Receptor Antagonist Start: 2023 cholecalciferol 0.05 mg oral capsule (12 sources) Vitamin D take 1 capsule by mouth in the morning cholecalciferol (Vitamin D-3) 50 MCG (2000 UT) capsule Take 2,000 Units by mouth in the morning. Active codeine phosphate 2 mg/ml / guaiFENesin 20 mg/ml oral solution (2 sources) Opioid Agonist Start: 2023 take 1 mL by mouth every six hours as needed for cough Start: 02-05-2022 take 10 mL by mouth every four to six hours as needed for cough guaiFENesin-Codeine 100-10 MG/5ML 10 mL as needed Orally every 4-6 hrs as needed for cough for 3 days Jan, Active cyclobenzaprine hydrochloride 10 mg oral tablet (5 sources) Muscle Relaxant take 1 tablet by mouth three times daily as needed cyclobenzaprine (FLEXERIL) 10 MG tablet Take 10 mg by mouth 3 times daily as needed. Active doxycycline monohydrate 100 mg oral capsule (2 sources) Tetracycline-cla ss Drug Start: 02-20-20 take 1 capsule by mouth twice daily Start: 12-27-2021 take 1 capsule by pr ut every twelve hours Doxycycline Monohydrate 100 MG 1 capsule Orally Twice a day for 10 day(s) Dec, Active 0.4 ml enoxaparin sodium 100 mg/ml prefilled syringe (2 sources) Low Molecular Weight Heparin Start: 07-21-2011 inject 0.4 mL by subcutaneous injection once daily enoxaparin (LOVENOX) 40 MG/0.4ML injection Inject 0.4 mL under the skin daily. 11.2 mL 0 07/21/2011 Active ergocalciferol 1.25 mg oral capsule (3 sources) Provitamin D2 Compound Start: 10-03-2012 take 1 capsule by mouth once daily ergocalciferol (DRISDOL) 82861 UNITS capsule Take 1 Cap by mouth daily. 30 Cap 3 10/03/2012 Active Ethinyl Estradiol / Ferrous fumarate / Norethindrone (16 sources) Estrogen Start: 05-24-2024 take 1 tablet by mouth once daily Aurovela FE 20 1-20 MG-MCG tablet Indications: Uses control TAKE 1 TABLET BY MOUTH EVERY DAY 84 tablet 3 05/24/2024 Active Start: 02-20-2024 Start: 06-19-2023 End: 06-18-2024 take 1 tablet by mouth once daily, then take 1 tablet by mouth once daily norethindrone-ethinyl estradiol (Junel FE 03/11) 1-20 MG-MCG tablet Indications: Uses control Take 1 tablet by mouth Daily Take 1 tablet by mouth daily 360 tablet 06/19/2023 06/18/2024 Active take 1 tablet by paige th every twenty-four hours Loestrin Fe 1.5/30 1.5-30 MG-MCG 1 tablet Orally Once a day for 28 day(s) Active fexofenadine hydrochloride 30 mg disintegrating oral tablet (15 sources) Histamine-1 Receptor Antagonist take 1 tablet by mouth in the morning fexofenadine ODT (Lisa ODT) 30 MG disintegrating tablet Take 30 mg by mouth in the morning. Active take 1 tablet by mouth twice radha ly Lisa 60 MG 1 tablet Orally Twice a day Active FLUoxetine 10 mg oral capsule (2 sources) Serotonin Reuptake Inhibitor Start: 09-04-2024 take 1 capsule by mouth once daily FLUoxetine (PROzac) 10 MG capsule Take 10 mg by mouth Daily 09/04/2024 Active fluticasone propionate 0.05 mg/actuat metered dose [...] Days Active linaclotide 0.29 mg oral capsule (14 sources) Guanylate Cyclase-C Agonist Start: 05-09-2023 End: 09-26-2024 take 1 capsule by mouth once daily take 1 capsule by mo ut every twenty-four hours Linzess 290 MCG 1 capsule Orally Once a day for 30 days Active take 1 capsule by mo ut every twenty-four hours Linzess 145 MCG 1 capsule Orally Once a day for 30 day(s) Active Magnesium (12 sources) take 1 tablet by mouth in the morning magnesium 200 MG tablet Take 200 mg by mouth in the morning. Active meloxicam 15 mg oral tablet (3 sources) Nonsteroidal Anti-inflammatory Drug Start: 6 take 1 tablet by mouth once daily meloxicam (MOBIC) 15 MG tablet Take 1 Tablet by mouth daily. 30 Tablet 3 11/30/2015 Active 24 hr metFORMIN hydrochloride 500 mg extended release oral tablet (16 sources) Biguanide Start: 3 End: 5 take 1 tablet by mouth every twenty-four hours in the morning metFORMIN XR (Glucophage-XR) 500 MG 24 hr tablet Indications: Metabolic syndrome Take 1 tablet (500 mg) by mouth in the morning and 1 tablet (500 mg) before bedtime. 180 tablet 2 09/30/2024 12/29/2024 Active metFORMIN HCl ER 500 MG Oral for 90 Days Active methylPREDNISolone 4 mg oral tablet (1 source) Corticosteroid Start: 02-20-2024 take 1 tablet by mouth once naproxen 500 mg oral tablet (20 sources) Nonsteroidal Anti-inflammatory Drug Start: 10-03-2012 take 1 tablet by mouth twice daily Norethindrone Ac-Eth Estradiol ( ()) 1.5-30 mg-mcg tablet (1 source) Start: 05-09-2023 take 1 tablet by mouth once daily Norethindrone Ac-Eth Estradiol ( ()) 1.5-30 mg-mcg tablet Active 1 TAB PO Daily May 09, 2023 12:00am omeprazole 20 mg delayed release oral capsule (9 sources) Proton Pump Inhibitor Start: 02-28-2024 End: 02-27-2025 take 1 capsule by mouth before mealtime omeprazole (PriLOSEC) [address] capsule Indications: Acute cough Take 1 capsule (20 mg) by mouth in the morning. Take before meals. Do not crush or chew.. 30 capsule 11 02/28/2024 02/27/2025 Active phentermine hydrochloride 37.5 mg oral tablet (11 sources) Sympathomimetic Amine Anorectic Start: 06-27-2023 take [...] Start: 12-27-2021 take 1 tablet by paige every twelve hours predniSONE 20 MG 1 [...] Active traMADol hydrochloride 50 mg oral tablet (16 sources) Opioid Agonist Start: 06-28-2022 take 1-2 [...] e zinc gluconate 77 mg oral lozenge (12 sources) Zinc 10 MG lozen ge Zinc Active zonisamide 100 mg oral capsule (20 sources) Anti-epileptic Agent Start: 09-10-2023 take 1 capsule by mouth in the morning zonisamide (Zonegran) 100 MG capsule Take 100 mg by mouth in the morning and 100 mg before bedtime. 09/10/2023 Active Start: 05-09-2023 End: 09-26-2024 take 1 capsule by mouth once daily Completed/Discontinued Medications Medication Drug Class(es) Dates Sig (Normalized) Sig (Original) azithromycin 500 mg oral tablet (2 sources) Macrolide Antimicrobial Start: 05-09-2023 End: 02-20-2024 take 1 tablet by mouth once daily Azithromycin 500 mg tablet Discontinued 500 MG PO daily 5 5 May 09, 2023 12:00am February 20, 2024 2:12pm Start: 02-05-2022 Azithromycin 2 50 MG 2 tablets on the first day, then 1 tablet daily for 4 days Orally Once a day for 5 day(s) Jan, Active DULoxetine 30 mg delayed release oral capsule (11 sources) Serotonin and Norepinephrine Reuptake Inhibitor Start: 05-08-2023 End: 09-26-2024 take 1-2 capsules by mouth once daily DULoxetine (Cymbalta) [address] capsule TAKE 1 TO 2 CAPSULES BY MOUTH ONCE DAILY 05/08/2023 09/26/2024 Discontinued (Other) ethinyl estradiol 0.03 mg / norethindrone acetate 1.5 mg oral tablet (6 sources) Estrogen Start: 02-14-2023 End: 02-28-2024 take 1 tablet by mouth once daily Norethindrone Ac-Eth Estradiol (Junel ()) 1.5-30 mg-mcg tablet Discontinued 1 TAB PO Daily May 09, 2023 12:00am February 20, 2024 2:13pm meclizine hydrochloride 25 mg oral tablet (15 sources) Antiemetic Start: 05-09-2023 End: 02-20-2024 take 1 tablet by mouth once daily as needed Meclizine 25 mg tablet Discontinued 25 MG PO Daily as needed May 09, 2023 12:00am February 20, 2024 2:13pm take 1 tablet by paige th three times daily as needed meclizine (Antivert) 25 MG tablet Take 2 5 mg by mouth 3 (three) times a day as needed Active Meclizine HCl 25 MG Oral for 10 Days Active Problems Active Problems Problem Classification Problem Date [...] IN RIGHT FOOT] Onset: 10-04-2021 Episodic Other injuries and conditions due to external causes (2 sources) Injury of nerve of lower extremity; Translations: [Injury of other nerves at lower leg level, right leg, initial encounter] 09-25-2024 Episodic Other lower respiratory disease (2 sources) Cough; Translations: [Acute cough] 02-28-2024 Episodic Other lower respiratory disease (1 source) Cough; Translations: [Cough] 02-20-2024 Episodic Other nervous system disorders (1 source) Other chronic pain; Translations: [OTHER CHRONIC PAIN] Onset: 06-04-2022 Chronic Other non-traumatic joint disorders (1 source) Pain in left wrist Episodic Other non-traumatic joint disorders (5 sources) Pain in right ankle and joints of right foot; Translations: [PAIN IN RIGHT ANKLE] Onset: 10-04-2021 Episodic Other nutritional; endocrine; and metabolic disorders (2 sources) Metabolic syndrome X; Translations: [Metabolic syndrome] 09-30-2024 Chronic Other nutritional; endocrine; and metabolic disorders (2 sources) Weight increased; Translations: [Abnormal weight gain] 09-30-2024 Episodic Other upper respiratory disease (1 source) Allergic rhinitis due to pollen; Translations: [ALLERGIC RHINITIS DUE TO POLLEN] Onset: 10-29-2021 Chronic Other upper respiratory infections (4 sources) Acute pansinusitis, unspecified; Translations: [Acute pharyngitis, unspecified] Episodic Residual codes; unclassified (2 sources) Family history of breast cancer; Translations: [Family history of malignant neoplasm of breast] 09-26-2024 Episodic Past or Other Problems Problem Classification [...] GDLNon AGE GDLN ACOG TESTING Note . [facility] Comment on above: TESTS RESULT FLAG UN ITS REF RANGE LAB Clinician Provided Cytology Information Source.............Cervix;Endocervix No. of containers..01 ThinPrep Vial Age Algo ACOG Jazmín... 65 FLAG LEGEND: L-Low Normal,H-High Normal,LL-Alert Low,HH-Alert High <-Panic Low,>-Panic High,A-Abnormal,AA-Critical Abnormal Performed at: 01 =G [address] [place] [address] Rachana Vines MD, HPV APTIMA Negative Negative [facility] Comment on above: This nucleic acid am plification test detects fourteen high- risk HPV types (16,18,31,33,35,39,45,51,52,56,58,59,66,68) without differentiation. Performed at: =[facility] [employer], [place] [id number] Precision Lens Polisher: Rachana Vnies MD, Phone: [phone] Performed at: [facility] [address] [place] [id number] Precision Lens Polisher: Luis F Almeida MD, Phone: [phone] IGP, APTIMA HPV, RFX 16/18,45 Note . [facility] Comment on above: TESTS RESULT FLAG UN ITS REF RANGE LAB DIAGNOSIS: 02 NEGATIVE FOR INTRAEPITHELIAL LESION OR MALIGNANCY. Specimen adequacy: 02 Satisfactory for evaluation. Endocervical and/or squamous metaplastic cells (endocervical component) are present. Performed by: 02 Ghislaine Crocker, Stitching Machine Feeder Or Offbearer (ASC) . 02 Note: Note 03 The Pap [...] High <-Panic Low,>-Panic High,A-Abnormal,AA-Critical Abnormal Performed at: 02 [facility] [address] [place] [address] Luis F Almeida MD, 03 WB [facility] [address] [address] Rachana Vines MD, BRUSH-SPATULA CERVIX ENDOCERVIX [facility] No Panel InformationOrdered By: Dion Ellison on 05-09-2023 Quick Strep (POC) [facility] XR wrist LT min 3V*on 2022 XR wrist LT min 3V* [facility] [address] [place] [id number] XRay Report Signed Patient: Rena Juan MR#: [id number] : 1985 Acct:[id number] Age/Sex: 36 / F ADM Date: 06/23/22 Loc: [facility] Room: Type: [facility] Attending Dr: Sandra Garcia NP-C Copies to: AALIYAH Ramos Ordering Provider: AALIYAH [...] Pablo Watts M.D.06/23/2022 2:08 PM Dictation Location: [place] [address] Transcribed By: [facility] 06/23/22 1408 Dictated By: Pablo Watts DO 06/23/22 1404 Signed By: 06/23/22 1408 Normal [facility] COVID/FLU/RSV RT-PCRon 02-05 SARS-CoV-2 (COVID-19) RNA TANI+probe Ql (Unsp spec) Negative [employer] Other COVID/FLU/RSV RT-PCR Positive [employer] Other COVID/FLU/RSV RT-PCR negagtive [employer] Other COVID/FLU/RSV RT-PCR Negative [employer] Other Quick Strepon 02-05-2022 S. pyogenes Org specific cx Ql (Throat) Negative [facility] Other Quick Strep [facility] [employer] Other PAP ACOG PANEL 2: 30 to 65on 02-03-2022 . . Normal [facility] Comment on above: Result Comment: Perf ormed at: WB Performed By: #### [id number] #### [facility] [address] [address] [address] Tha Cowan Age Gdln ACOG Testing 30-65 Normal [facility] Comment on above: Performed By: #### [id number] #### [facility] [address] [place] [address] Dr. Tha Cowan DIAGNOSIS: Comment Normal [facility] Comment on above: Result Comment: NEGA TIVE FOR INTRAEPITHELIAL LESION OR MALIGNANCY. Performed at: WB Performed By: #### [id number] #### [facility] [address] [address] [address] Tha Cowan HPV Aptima Negative Normal Negative [facility] Comment on above: Result Comment: This nucleic acid amplification test detects fourteen high-risk HPV types (16,18,31,33,35,39,45,51,52,56,58,59,66,68) without differentiation. Performed at: =G Performed By: #### [id number] #### [facility] [address] [address] [address] Tha Cowan HPV Genotype Reflex Comment Normal [facility] Comment on above: Result Comment: Crit eria not met, HPV Genotype not performed. Performed at: WB Performed By: #### [id number] #### [facility] [address] [place] [address] Dr. Tha Cowan Methodology: Comment Normal [facility] Comment on above: Result Comment: This liquid based ThinPrep(R) pap test was screened with the use of an image guided system. Performed at: WB Performed By: #### [id number] #### [facility] [address] [place] [address] Dr. Tha Cowan Note: Comment Normal [facility] Comment on above: Result Comment: The Pap smear is a screening test designed to aid in the detection of premalignant and malignant conditions of the uterine cervix. It is not a diagnostic procedure and should not be used as the sole means of detecting cervical cancer. Both false-positive and false-negative reports do occur. . Performed at: WB Performed By: #### [id number] #### [facility] [address] [address] [address] Tha Cowan Performed by: Comment Normal [facility] Comment on above: Result Comment: Rosalba Booker, Stitching Machine Feeder Or Offbearer (ASCP) Performed at: WB Performed By: #### [id number] #### [facility] [address] [address] [address] Tha Cowan Specimen adequacy: Comment Normal [facility] Comment on above: Result Comment: Sati sfactory for evaluation. Endocervical and/or squamous metaplastic cells (endocervical component) are present. Performed at: WB Performed By: #### [id number] #### [facility] [address] [address] [address] Tha Cowan COVID Quick Testingon 2021 Result Negative [facility] Other XR ELBOW LT MIN 3 VIEWSon XR ELBOW LT MIN 3 VIEWS EXAM: XR ELBOW LT MIN 3 VIEWS HISTORY: Traumatic injury COMPARISON: None. TECHNIQUE: 3 views left elbow FINDINGS: No acute displaced fracture or dislocation is evident. No joint effusion. Soft tissues are unremarkable. IMPRESSION: Negative radiographic evaluation for fracture. Electronically authenticated by: NIDIA PIPER Date: 2021-10-28 14:44 Normal [facility] Provider Letteron 08-28-2020 Provider Letter August 28, 2020 Dear Rena, We have been trying to reach you with no success. It is important that you return our call regarding your appointment upon receiving this letter. Thank you for your prompt attention to this matter. Sincerely, [facility] [address] [place] [address] Normal [facility] Ambulatory Clinical Summaryo n 11-15-2019 Ambulatory Clinical Summary {[id number]}CD:[id number] Normal [facility] Gynecology Office/Clinic Not lakshmi 11-15-2019 Gynecology Office/Clinic Note Chief Complaint Annual, Having pain in left Side. States she had Ultrasound at [facility] and was neg. Obstetric History History (0,0,0,1) # 1 Baby 1 Outcome Date: 03/10/2012 Outcome: Live Outcome or Result: Vaginal Gender: Female Gest Age: 38 weeks 2 days Wt: 3232 g Hospital: [facility] Labor: 7 hr 20 min Child's Name: [...] left side and had pelvic US in [place] recently and states it was normal. [...] adnexal tenderness. Assessment/Plan 1. 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 Normal [facility] Comment on above: Result Comment: Elec tronically Signed By: Grecia PEREZ\.br\Date and Time Signed: 11/15/19 09:40 EDT Patient Educationon 11-15-19 Patient Education Family Medicine Preventive Care for [...] exam and preventive care every 6 months. [place] your teeth twice a day and floss [...] ages 21 (more content not included)... Normal [facility] Vital Signs Date Time Vital Sign Value Performing Clinician Facility 09-30-2024 13:25-040 Body height 172.7 cm Toshia FIGUEROA Work Phone: [facility] 09-30-2024 13:25-040 Body mass index (BMI) [Ratio] 26.3 kg/m2 Toshia FIGUEROA Work Phone: [facility] 09-30-2024 13:25040 Body weight 78.47 kg Toshia FIGUEROA Work Phone: [facility] 09-30-2024 13:25-040 Diastolic blood pressure 70 mm[Hg] Toshia Allegany PA Work Phone: [facility] 09-30-2024 13:25-0400 Systolic blood pressure 112 mm[Hg] Toshia Allegany PA Work Phone: [facility] 09-26-2024 13:29-0400 Body height 160 cm Toshia Mirza PA Work Phone: [facility] 09-26-2024 13:29-0400 Body mass index (BMI) [Ratio] 30.89 kg/m2 Toshia Allegany PA Work Phone: [facility] 09-26-2024 13:29-0400 Body weight 79.11 kg Toshia Mirza PA Work Phone: [facility] 09-26-2024 13:29-0400 Diastolic blood pressure 74 mm[Hg] Toshia Mirza PA Work Phone: [facility] 09-26-2024 13:29-0400 Systolic blood pressure 118 mm[Hg] Toshia Reinoso PA Work Phone: [facility] 02-28-2024 13:07-0500 Body height 165.1 cm Katheryn Eligio DO Work Phone: [facility] 02-28-2024 13:07-0500 Body mass index (BMI) [Ratio] 28.29 kg/m2 Katheryn Eligio DO Work Phone: [facility] 02-28-2024 13:07-0500 Body weight 77.11 kg Katheryn Eligio DO Work Phone: [facility] 02-28-2024 13:07-0500 Diastolic blood pressure 70 mm[Hg] Katheryn Eligio DO Work Phone: [facility] 02-28-2024 13:07-0500 Systolic blood pressure 116 mm[Hg] Katheryn Eligio DO Work Phone: [facility] 09-27-2023 13:59-0400 Body mass index (BMI) [Ratio] 25.63 kg/m2 [facility] 09-27-2023 13:59-0400 Body weight 69.85 kg [facility] Nurse [facility] 09-27-2023 13:59-0400 Diastolic blood pressure 74 mm[Hg] [facility] Nurse [facility] 09-27-2023 13:59-0400 Systolic blood pressure 118 mm[Hg] [facility] Nurse [facility] 05-09-2023 15:34-0400 Body height 172.72 cm [facility] 05-09-2023 15:34-0400 Body mass index (BMI) [Ratio] 25.8 kg/m2 [facility] 05-09-2023 15:34-0400 Body weight 77.11 kg [facility] 05-09-2023 15:34-0400 Diastolic blood pressure 80 mm[Hg] [facility] 05-09-2023 15:34-0400 Systolic blood pressure 136 mm[Hg] [facility] 02-05-2022 13:15-0500 Body height 170.18 cm Anthony Gonzalezaker Other [facility] Other 02-05-2022 13:15-0500 Body temperature 98.2 [degF] Anthony Ronaldo Other [facility] Other 02-05-2022 13:15-0500 Diastolic blood pressure 90 mm[Hg] Anthony Higgins Other [facility] Other 02-05-2022 13:15-0500 Respiratory rate 18 /min Anthony [place] Other [facility] Other 02-05-2022 13:15-0500 SaO2% (BldA) [Mass fraction] 98 % Anthony [place] Other [facility] Other 02-05-2022 13:15-0500 Systolic blood pressure 131 mm[Hg] Anthony [place] Other [facility] Other 12-27-2021 18:10-0500 Body height 170.18 cm Anthony Higgins Other [facility] Other 12-27-2021 18:10-0500 Body mass index (BMI) [Ratio] 24.9 kg/m2 Anthony Higgins Other [facility] Other 12-27-2021 18:10-0500 Body temperature 97.5 [degF] Anthony Higgins Other [facility] Other 12-27-2021 18:10-0500 Body weight 72.12 kg Anthony Higgins Other [facility] Other 12-27-2021 18:10-0500 Diastolic blood pressure 94 mm[Hg] Anthony Higgins Other [facility] Other 12-27-2021 18:10-0500 Respiratory rate 18 /min Anthony Higgins Other [facility] Other 12-27-2021 18:10-0500 SaO2% (BldA) [Mass fraction] 98 % Anthony Higgins Other [facility] Other 12-27-2021 18:10-0500 Systolic blood pressure 137 mm[Hg] Anthony Higgins Other [facility] Other Encounters Encounter Date Encounter Type Care Provider Facility Start: 09-30-2024 End: 09-30-2024 Bamboo flowsheet Toshia FIGUEROA Work Phone: [facility] Start: 09-30-2024 End: 09-30-2024 Bamboo flowsdionisio FIGUEROA Work Phone: [facility] Start: 09-30-2024 End: 09-30-2024 Office outpatient visit 10 minutes Toshia FIGUEROA Work Phone: [facility] Comment on above: Weight gain; Metabolic syndrome Start: 09-30-2024 End: 09-30-2024 ambulatory TOSHIA REINOSO Not Available Start: 09-26-2024 End: 09-26-2024 Bamboo flowsheet Toshia FIGUEROA Work Phone: [facility] Start: 09-26-2024 End: 09-26-2024 Bamboo flowsheet Toshia Reinoso PA Work Phone: [facility] Start: 09-26-2024 End: 09-26-2024 Office outpatient visit 15 minutes Toshia FIGUEROA Work Phone: [facility] Comment on above: Family history of br east cancer Start: 09-26-2024 End: 09-26-2024 ambulatory TOSHIA REINOSO Not Available Start: 09-25-2024 End: 09-25-2024 ambulatory Heather Chawla MD Work Phone: [facility] Work Phone: Start: 09-25-2024 End: 09-25-2024 Patient encounter procedure Demond Fong [facility] Work Phone: Start: 02-28-2024 End: 02-28-2024 Bamboo flowsheet Katheryn [...] cough Start: 02-28-2024 End: 02-28-2024 ambulatory KATHERYN DEL VALLE Not Available Start: 09-27-2023 End: 09-27-2023 Office outpatient visit 5 minutes [facility] Eligio Nurse [facility] Comment on above: Encounter for weight management Start: 08-13-2023 End: 08-13-2023 Letter encounter [facility] Start: 05-09-2023 End: 05-09-2023 ambulatory [facility] Work Phone: Start: 05-09-2023 End: 05-09-2023 Patient encounter procedure [facility] Work Phone: Start: 05-07-2023 Letter encounter [facility] Work Phone: Start: 07-19-2022 End: 07-20-2022 ambulatory NARENDRANATH LAKSHMIPATHY . Facility:[facility] Start: 07-12-2022 End: 07-13-2022 ambulatory RAPHAEL MUHAMMAD Facility:[facility] Start: 06-28-2022 End: 06-29-2022 ambulatory JOSE DAVID ROSSI Facility:[facility] Start: 06-23-2022 End: 06-23-2022 ambulatory Sandra Garcia Facility:[facility] Start: 06-23-2022 Office outpatient ne w 30 minutes Sandra Garcia [facility] Start: 06-23-2022 End: 06-23-2022 ambulatory MD Heather Chawla Work Phone: [facility] Work Phone: Start: 06-23-2022 End: 06-23-2022 Patient encounter procedure MD Heather Chawla Work Phone: [facility] Start: 06-23-2022 End: 06-24-2022 ambulatory NARENDRANATH LAKSHMIPATHY . Facility:[facility] Start: 05-26-2022 End: 05-27-[address] HEATHER CHAWLA Facility:[facility] Start: 05-03-2022 [facility] Start: 04-27-2022 End: 04-28-[address] HEATHER CHAWLA Facility:[facility] Start: 02-05-2022 End: 02-05-2022 ambulatory Anthony Higgins Other [facility] Other Start: 02-05-2022 Office outpatient vi sit 15 minutes Anthony Higgins [facility] Start: 01-25-2022 End: 01-25-[address] HEATHER CHAWLA Facility:[facility] Start: 12-27-2021 End: 12-27-2021 ambulatory Anthony Higgins Other [facility] Other Start: 12-27-2021 Office outpatient vi sit 15 minutes Anthony Higgins [facility] Start: 10-28-2021 End: 10-28-[address] HEATHER CHAWLA Facility:[facility] Start: 10-27-2021 End: 10-28-2021 ambulatory RAPHAEL MUHAMMAD Facility:[facility] Start: 10-01-2021 End: 10-02-2021 ambulatory FIONA GAMING . Facility: Start: 08-29-2016 End: 08-30-2016 ambulatory UNKNOWN PROVIDER Facility:[facility] Procedures Date Procedure Procedure Detail Performing Clinician Start: 02-28-2024 IGP,APTIMA HPV,AGE GDLN Katheryn Eligio DO Work Phone: Start: 05-09-2023 Quick Strep (POC) Start: 06-23-2022 Plain X-ray of left wrist MD Heather Chawla Work Phone: Plan of Treatment Date Care Activity Detail Author Start: 08-02-2035 Shingles (RZV) Vacci ne (1 of 2) Shingles (RZV) Vaccine (1 of 2) [facility] Start: 03-04-2025 End: 03-04-2025 Patient encounter procedure [facility] Start: 09-30-2024 End: 09-30-2024 Patient encounter procedure [facility] Comment on above: Arrived Start: 09-26-2024 End: 11-26-2025 MG Breast - bilateral Screening Bilateral screening mammogram Imaging Routine Family history of breast cancer Expected: 09/26/2024 (Approximate), Expires: 11/26/2025 [facility] Work Phone: Comment on above: Expected: 09/26/2024 (Approximate), Expires: 11/26/2025 Start: 09-26-2024 End: 09-26-2024 Patient encounter procedure 09/26/2024 1:20 PM EDT Office Visit [facility] [address] [place] [address] Toshia Reinoso PA [address] [place] [address] Arrived [facility] CAMARENA Comment on above: Arrived Start: 02-28-2024 End: 02-28-2024 Patient encounter procedure [facility] Comment on above: Arrived Start: 10-21-2022 COVID-19 Vaccine ( season) COVID-19 Vaccine ( season) [facility] Start: 10-21-2022 Influenza vaccination Influenza Vacc ine (#1) [facility] Start: 11-20-2021 Influenza vaccination Influenza Vacc ine (#1) [facility] Start: 08-20-2016 Annual wellness visit Annual W ellness Visit ([id number]) [facility] Start: 2012 HPV Vaccine (optiona l start 27-45 years) HPV Vaccine (optional start 27-45 years) [facility] Start: 2006 Screening for malign ant neoplasm of cervix Pap Smear [facility] Start: 2004 Hepatitis A (HAV) Vaccine (optional start 19+ years) Hepatitis A (HAV) Vaccine (optional start 19+ years) [facility] Start: 2004 Hepatitis B vaccination Hepati tis B (HBV) Vaccine (1 of 3 - 19+ 3-dose series) [facility] Start: 08-02-2003 Hepatitis C screening Hepatitis C An tibody [facility] Start: 08-02-2003 Tetanus + diphtheria + acellular pertussis vaccine (product) Tdap Booster [facility] Start: 2000 HIV screening HIV Test [facility] Start: 01-31-1986 COVID-19 Vaccine (#1) COVID-19 Vacci ne (#1) [facility] Start: 1985 Hepatitis B vaccination Hepati tis B (HBV) Vaccine (1 of 3 - 3-dose series) [facility] Start: 1985 Screening for malign ant neoplasm of breast Mammography shared decision making (35 through 39 years) [facility] Cytology Cervical or vaginal smear or scraping study Pap Smear Pathology and Cytology Routine Well woman exam with routine gynecological exam Ordered: 02/28/2024 [facility] Work Phone: Comment on above: Ordered: 02/28/2024 Human papilloma viru s DNA [Presence] in Unspecified specimen by Probe with amplification HPV DNA probe, amplified Microbiology Routine Well woman exam with routine gynecological exam Ordered: 02/28/2024 [facility] Merlin Comment on above: Ordered: 02/28/2024 Payers Date Payer Category Payer Self-pay 2020 Medicare (Managed Care) KENIA ALE[facility] [employer] [id number] 03-23-2020 Unknown [id number] 12-22-2015 Medicaid MEDICAID MEDICAI D QMB [id number] 12/22/2015-Present [address] [place] [id number] Medicaid [id number] 12-21-2013 Medicare [id number] 12-21-2013 Medicare [id number] 1985 Unknown [id number] 2.16.840.1.769875.3.579.2. 732 1985 Unknown [id number] 2.16.840.1.420309.3.579.2. 593 1985 Unknown [id number] 2.16.840.1.288110.3.579.2. 593 1985 Unknown [id number] 2.16.840.1.810828.3.579.2. 593 1985 Unknown [id number] 2.16.840.1.426025.3.579.2. 593 1985 Unknown [id number] 2.16.840.1.941966.3.579.2. 593 1985 Unknown [id number] 2.16.840.1.247323.3.579.2. 593 1985 Unknown [id number] 2.16.840.1.692903.3.579.2. 593 1985 Unknown [id number] 2.16.840.1.053454.3.579.2. 593 1985 Unknown [id number] 2.16.840.1.658330.3.579.2. 593 1985 Unknown [id number] 2.16.840.1.178501.3.579.2. 593 1985 Unknown [id number] 2.16.840.1.162218.3.579.2. 1259 1985 Unknown [id number] 2.16.840.1.443821.3.579.2. 1259 1985 Unknown [id number] 2.16.840.1.345683.3.579.2. 1259 02-20-1959 Medicaid [id number] 02-20-1959 Medicare [id number] [id number] Medicare [id number] Unknown Regular Insurance [id number] Unknown [id number] 2.16.840.1.279369.3.579.2. 531 Social History Date Type Detail Facility Unknown if ever smoked [facility] [employer] Other Start: 07-09-2018 End: 02-28-2024 Sex Assigned At [facility] [employer] Other Start: 07-10-2011 End: 01-26-2023 Tobacco smoking status NHIS Never smoked tobacco [facility] Work Phone: Start: 07-10-2011 Tobacco use and exposure Smokeless tobacco non-user [facility] Start: 07-10-2021 End: 09-30-2024 Alcohol intake Current drinker of alcohol (finding) [facility] Start: 07-10-2021 End: 02-28-2024 Alcohol intake [facility] Start: 07-11-2011 Alcohol Comment 4 beers per we ekend outing, once a week [facility] Start: 1985 Sex Assigned At Not [facility] file [facility] Start: 1985 Sex Assigned At Female F [facility] How often to you hav e a drink containing alcohol? Never [facility] How many standard drinks containing alcohol do you have on a typical day? 1 or 2 [facility] How often do you hav e 6 or more drinks on 1 occasion? Monthly [facility] Tobacco smoking stat us NHIS Unknown if ever smoked [facility] Work Phone: Sex Female (finding) [facility] Clinical Notes 10-27-2021 to 09-30-2024 CAROLINA Sanchez - 09/30/2024 1:20 PM CAROLINA Stevens - 09/26/2024 1:20 PM Quinn Weathers, PEPPER - 02/28/2024 1:00 PM Darell Park LPN - 09/27/2023 1:30 PM EDT Note Date & Type Note Facility 09-30-2024 History of Presen t illness Narrative Reason for Appointment: Patient ID: Rena Juan is a 39 y.o. female who presents for Weight Management (Pt present today to discuss Adipex.) Patient presents today for Adipex visit. MEDICATIONS Current Outpatient Medications Medication Instructions Aurovela FE 03/11 1-20 MG-MCG tablet 1 tablet, Oral, Daily Calcium Carb-Cholecalciferol (CALCIUM 500 + D PO) 500 mg, Oral, Daily cetirizine (ZYRTEC) 10 mg, Oral, Daily cholecalciferol (VITAMIN D-3) 2,000 Units, Oral, Daily fexofenadine ODT (LISA ODT) 30 mg, Oral, Daily FLUoxetine (PROZAC) 10 mg, Daily magnesium 200 mg, Oral, Daily meclizine (ANTIVERT) 25 mg, Oral, 3 times daily PRN metFORMIN XR (GLUCOPHAGE-XR) 500 mg, Oral, Daily with evening meal naproxen (NAPROSYN) 500 mg, Oral, 2 times daily with meals omeprazole (PRILOSEC) 20 mg, Oral, Daily before breakfast, Do not crush or chew. phentermine (ADIPEX-P) 37.5 mg, Oral, Daily before breakfast traMADol (Ultram) 50 MG tablet 1-2 tablets Orally BID PRN ankle/foot pain for 30 days Vitamin C 500 mg, Oral, Daily Zinc 10 MG lozenge Zinc zonisamide (ZONEGRAN) 100 mg, Oral, 2 times daily ALLERGIES Allergies Allergen Reactions Penicillins Hives, Itching, Rash and Swelling Fever, rash, swelling PROBLEMS Active Ambulatory Problems Diagnosis Date Noted No Active Ambulatory Problems Resolved Ambulatory Problems Diagnosis Date Noted No Resolved Ambulatory Problems Past Medical History: Diagnosis Date Acute pelvic pain Anemia Ankle pain, right Arthritis Avascular necrosis of right talus (HCC) Deformity of right ankle joint Depression with anxiety Encounter for gynecological examination (general) (routine) without abnormal findings Failed total joint replacement, initial encounter Foot pain, right History of stomach ulcers 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, right ankle (HCC) Painful orthopaedic hardware Peroneal tendinitis, right Post-traumatic arthritis of right ankle HISTORY PAST MEDICAL HISTORY SOCIAL HISTORY Past Medical History: Diagnosis Date Acute pelvic pain Anemia Ankle pain, right Arthritis Avascular necrosis of right talus (HCC) Deformity of right ankle joint Depression with anxiety Depression/anxiety Encounter for gynecological examination (general) (routine) without abnormal findings Failed total joint replacement, initial encounter Foot pain, right History of stomach ulcers 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 She is normal weight. HENT: Head: Normocephalic. Cardiovascular: Rate and Rhythm: Normal rate. Pulses: Normal pulses. Pulmonary: Effort: Pulmonary effort is normal. Breath sounds: Normal breath sounds. Abdominal: Palpations: Abdomen is soft. Musculoskeletal: General: Normal range of motion. Neurological: General: No focal deficit present. Mental Status: She is alert and oriented to person, place, and time. Psychiatric: Mood and Affect: Mood normal. Behavior: Behavior normal. Thought Content: Thought content normal. Judgment: Judgment normal. Vitals and nursing note reviewed. Vitals: Estimated body mass index is 26.3 kg/m as calculated from the following: Height as of this encounter: 5' 8 . Weight as of this encounter: 173 lb. BP: 112/70 Patient's last menstrual period was 09/23/2024 (approximate). ASSESSMENT & PLAN ICD-10-CM 1. Weight gain R63.5 POCT , urine manually resulted Pt present today for a Adipex visit. However, patient's BMI is under 30.0kg. Pt is currently 173 lbs and a BMI of 26.30kg and taking Metformin. Patient is not a candidate for Adipex and Toshia Reinoso recommended to do Metformin twice a day. Rx was sent in. Documented by Shellie Mireles MA on behalf of: CAROLINA Sanchez documented in this encounter [facility] 09-26-2024 History of Presen t illness Narrative Reason for Appointment: Patient ID: Rena Juan is a 39 y.o. female who presents for BRCA testing Patient presents today for DESIRES GENETIC TESTING MEDICATIONS Current Outpatient Medications Medication Instructions Aurovela FE 03/11 1-20 MG-MCG tablet 1 tablet, Oral, Daily Calcium Carb-Cholecalciferol (CALCIUM 500 + D PO) 500 mg, Oral, Daily cholecalciferol (VITAMIN D-3) 2,000 Units, Oral, Daily fexofenadine ODT (LSIA ODT) 30 mg, Oral, Daily magnesium 200 mg, Oral, Daily meclizine (ANTIVERT) 25 mg, Oral, 3 times daily PRN metFORMIN XR (GLUCOPHAGE-XR) 500 mg, Oral, Daily with evening meal naproxen (NAPROSYN) 500 mg, Oral, 2 times daily with meals omeprazole (PRILOSEC) 20 mg, Oral, Daily before breakfast, Do not crush or chew. phentermine (ADIPEX-P) 37.5 mg, Oral, Daily before breakfast traMADol (Ultram) 50 MG tablet 1-2 tablets Orally BID PRN ankle/foot pain for 30 days Vitamin C 500 mg, Oral, Daily Zinc 10 MG lozenge Zinc zonisamide (ZONEGRAN) 100 mg, Oral, 2 times daily ALLERGIES Allergies Allergen Reactions Penicillins Hives, Itching, Rash and Swelling Fever, rash, swelling PROBLEMS Active Ambulatory Problems Diagnosis Date Noted No Active Ambulatory Problems Resolved Ambulatory Problems Diagnosis Date Noted No Resolved Ambulatory Problems Past Medical History: Diagnosis Date Acute pelvic pain Anemia Ankle pain, right Arthritis Avascular necrosis of right talus (HCC) Deformity of right ankle joint Depression with anxiety Encounter for gynecological examination (general) (routine) without abnormal findings Failed total joint replacement, initial encounter Foot pain, right History of stomach ulcers 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, right ankle (HCC) Painful orthopaedic hardware Peroneal tendinitis, right Post-traumatic arthritis of right ankle HISTORY PAST MEDICAL HISTORY SOCIAL HISTORY Past Medical History: Diagnosis Date Acute pelvic pain Anemia Ankle pain, right Arthritis Avascular necrosis of right talus (HCC) Deformity of right ankle joint Depression with anxiety Depression/anxiety Encounter for gynecological examination (general) (routine) without abnormal findings Failed total joint replacement, initial encounter Foot pain, right History of stomach ulcers 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 She is normal weight. HENT: Head: Normocephalic. Cardiovascular: Rate and Rhythm: Normal rate. Pulses: Normal pulses. Pulmonary: Effort: Pulmonary effort is normal. Breath sounds: Normal breath sounds. Abdominal: Palpations: Abdomen is soft. Musculoskeletal: General: Normal range of motion. Neurological: General: No focal deficit present. Mental Status: She is alert and oriented to person, place, and time. Psychiatric: Mood and Affect: Mood normal. Behavior: Behavior normal. Thought Content: Thought content normal. Judgment: Judgment normal. Vitals and nursing note reviewed. Vitals: Estimated body mass index is 30.89 kg/m as calculated from the following: Height as of this encounter: 5' 3 . Weight as of this encounter: 174 lb 6.4 oz. BP: 118/74 No LMP recorded. ASSESSMENT & PLAN ICD-10-CM 1. Family history of breast cancer Z80.3 Bilateral screening mammogram Bilateral screening mammogram Patient presents for genetic testing. Swab obatained. Fraternal twin sister diagnosed with breast ca recently Documented by CAROLINA Sanchez on behalf of: CAROLINA Sanchez documented in this encounter [facility] 02-28-2024 History of Presen t illness Narrative [...] nursing note reviewed. Exam conducted with a needle loom weaver present. Vitals: Estimated body mass index is [...] Del Valle DO documented in this encounter [facility] 09-27-2023 History of Presen t illness Narrative [...] of CAROLINA Sanchez documented in this encounter [facility] 07-12-2022 Note PROCEDURE: XR FOOT L T [...] authenticated by: JAVIER LAYTON Date: 2022-07-12 14:23 [facility] 06-29-2022 Note PROCEDURE: XR FOOT L T MIN 3 VIEWS COMPARISON: None. HISTORY: Pain FINDINGS: BONES:No fracture, acute abnormality, or significant arthropathy. SOFT TISSUES:Negative. No visible soft tissue swelling. EFFUSION:None visible. OTHER: Negative. IMPRESSION: No acute radiographic abnormality Electronically authenticated by: TAYLA HANNON Date: 2022-06-29 07:25 [facility] 06-23-2022 Evaluation note Encounter Date [...] heart to prevent swelling. Bernard wrap applied [facility] Other 05-04-2023 NoteCONSULTATION CONSULTATION DATE: 06/23/2022 TO: [...] our patients to inform us about any qpcs-nub-uizsgzs medications or herbal remedies/nutritional supplements/alternative remedies. 2. [...] treatment options with their primary care provider.[facility] [id number] Note CONSULTATION CONSULTATION DATE: 05/26/2022 TO: Heather [...] our patients to inform us about any ubit-nfj-yflwpis medications or herbal remedies/nutritional supplements/alternative remedies. 2. [...] treatment options with their primary care provider.[facility] [id number] NotePROCEDURE: XR ANKLE RT MIN 3 VIEWS, [...] Electronically authenticated by: TAYLA HANNON Date: 2022-04-27 10:29[facility]03-08-2023 NotePROCEDURE: XR ANKLE RT MIN [...] Electronically authenticated by: TAYLA HANNON Date: 2022-04-27 10:29[facility]12-17-2022 Evaluation note* Encounter Date Diagnosis [...] the plan. Jan, Cough (ICD-10 - R05.9) [facility] Other 11-07-2022 Evaluation note* Encounter Date Diagnosis [...] She understands and agrees with the plan. [facility] Other 09-07-2022 NotePROCEDURE: XR ANKLE RT MIN [...] Electronically authenticated by: JAVIER LAYTON Date: 2021-10-27 14:08[facility]09-07-2022 NotePROCEDURE: XR ANKLE RT MIN [...] Electronically authenticated by: JAVIER LAYTON Date: 2021-10-27 14:08[facility]09-07-2022 NotePROCEDURE: XR ANKLE RT MIN [...] Electronically authenticated by: JAVIER LAYTON Date: 2021-10-27 14:08[facility] noteNo assessment information availableAv[facility] Work Phone: Evaluation note* Diagnosis Encounter for weight management documented in this encounter [facility]* Diagnosis Well woman exam with routine gynecological exam Routine gynecological examination Acute cough documented in this encounter [facility]* Diagnosis Onset Date Resolution Status Admit Date 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 acute September 12:52pm [facility] Work Phone: Evaluation note* Diagnosis Family history of breast cancer Family history of malignant neoplasm of breast documented in this encounter [facility]* Diagnosis Weight gain Other symptoms concerning nutrition, metabolism, and development Metabolic syndrome Dysmetabolic Syndrome X documented in this encounter [facility] HealthcareHistory general Narrative - Reported* Type Description Date Medical History allergies Medical History constipation Medical History anxiety Surgical History right ankle transplant Surgical History left wrist Surgical History right ovary removed Surgical History tubes in ears [facility] Other Reason for referral (narrative)No reason for referral [facility] Work Phone: Summary Purpose Family History No Family History Records FoundNo Family History Records FoundNo Family History Records FoundNo Family History Records FoundNo Family History Records Found Advance Directives No Advanced Directives Records FoundLatest Code Status on File Code Status Date [...] for Visit Chief Complaint sore throat, fatigue Chief Complaint Admit Date EMG BLE per Nohelia Scott [employer] September 25 12:52pm Reason for Visit Admit Date 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 September 25, 2024 12:52pm Additional Source Comments INFORMATION SOURCE (unrecogn ized section and content) DATE CREATED AUTHOR [facility]29/2020 [facility] DATE CREATED AUTHOR AUTHOR'S ORGANIZ ATION 04/03/2021 [facility] DATE CREATED AUTHOR AUTHOR'S ORGANIZ ATION 06/30/2022 [facility] DATE CREATED AUTHOR AUTHOR'S ORGANIZ ATION 07/29/2022 [facility] DATE CREATED AUTHOR AUTHOR'S ORGANIZ ATION 10/01/2024 [facility] EPIC REASON FOR VISIT (unrecogniz ed section and content) Reason Comments Weight Management Reason Comments Gynecologic Exam Reason Comments BRCA testing Reason Comments Weight Management Pt present today to discuss Adipex. Care Teams (unrecognized sec tion and content) [...] May 09, 2023 End: May 09, 2023 Student Admissions Clerk Relationship Specialty Start Date End Date Heather Chawla MD [facility] [place] [address] PCP - General 02/07/23 Student Admissions Clerk Relationship Specialty Start Date End Date Heather Chawla MD [address] [address] PCP - General 02/07/23 Student Admissions Clerk Relationship Specialty Start Date End Date Heather Chawla MD [address] [address] PCP - General 02/07/23 Student Admissions Clerk Relationship Specialty Start Date End Date Heather Chawla MD [address] [address] PCP - General 02/07/23 Team Status: Inactive Member Role Status Dates Heather Chawla MD Primary Care Provider Active Start: September 25, 2024 End: September 25, 2024 Demond Lowery DO Attending Provider Active Start: September 25, 2024 End: September 25, 2024 Student Admissions Clerk Relationship Specialty Start Date End Date Heather Chawla MD [address] [address] PCP - General 02/07/23 Student Admissions Clerk Relationship Specialty Start Date End Date Heather Chawla MD [address] [address] PCP - General 02/07/23 Goals (unrecognized section [...] BE BASED ON THE PRIMARY CLINICAL RECORDS. [facility] [employer] [facility]. provides no warranty or guarantee of the accuracy or completeness of information in this document.
--- NOTE | 2024-10-17 13:37 | PM.CN ---
Consult Note: HPI Data of Consult Patient: known to practice within the last 3 years Consult date: 10/17/24 Requesting Physician: Nohelia Scott NP Primary Care Provider: HEATHER YANEZ Consult Narrative Reason for consult: f/u right foot pain Narrative: Rena Juan a pleasant 39 year old female presents for evaluation of right foot/ankle pain post surgery in 2020. Pt has failed to benefit from > 6 weeks of PT/HEP, tylenol, nsaids, heat, ice. failed gabapentin and tylenol. currently utilizing naproxen prn, zonegran, tramadol prn with mild benefit. continues to endorse moderate to severe right foot and ankle pain as well as numbness/tingling. 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 cc:: CC: Nohelia Scott NP Review of Systems ROS Musculoskeletal Reports: extremity pain PFSH PFSH Medical History Osteoarthritis of right ankle ?M19.071 - Primary osteoarthritis, right ankle and foot (ICD-10) Neuropathy of right foot ?G57.91 - Unspecified mononeuropathy of right lower limb (ICD-10) Surgical History History of right salpingo-oophorectomy ?Z90.79 - Acquired absence of other genital organ(s) (ICD-10) ?Z90.721 - Acquired absence of ovaries, unilateral (ICD-10) History of open reduction and internal fixation (ORIF) procedure ?Z98.890 - Other specified postprocedural states (ICD-10) History of total ankle replacement ?Z96.669 - Presence of unspecified artificial ankle joint (ICD-10) Meds Home Medications and Allergies Home Medications ?Medication ?Instructions ?Recorded ?Confirmed ?Type cyclobenzaprine 10 mg tablet 10 mg PO DAILY 02/15/23 02/15/23 History duloxetine 60 mg capsule,delayed 60 mg PO DAILY 02/15/23 02/15/23 History release linaclotide 290 mcg capsule 290 mcg PO DAILY 02/15/23 02/15/23 History (Linzess) meclizine 25 mg tablet 25 mg PO BID 02/15/23 02/15/23 History norethindrone 1 mg-ethinyl 1 tab PO DAILY 02/15/23 02/15/23 History estradiol 20 mcg (24)-iron 75 mg (4) tablet () tramadol 50 mg tablet 50 mg PO DAILY PRN pain 02/15/23 02/15/23 History zinc gluconate 50 mg tablet 50 mg PO DAILY 02/15/23 02/15/23 History tramadol 50 mg tablet 50 mg PO DAILY PRN pain #7 tabs 04/17/24 Rx zonisamide 100 mg capsule 100 mg PO BID 09/05/24 09/05/24 History (Zonegran) Allergies Allergy/AdvReac Type Severity Reaction Status Date / Time Penicillins Allergy Unknown Verified 02/15/23 10:52 Exam Constitutional Documenting provider has reviewed patient's vital signs: yes Common normals: no apparent distress, oriented x3, healthy appearing, alert and well nourished General appearance: cooperative HENMT Common normals: normocephalic, hearing grossly normal bilaterally and moist oral mucous membranes Head and scalp: normocephalic Eye Common normals: PERRL Pupil: PERRL Neck & C-Spine Common normals: full ROM General: normal visual inspection Chest Common normals: inspection of chest normal Respiratory Common normals: normal respiratory effort, no retractions and no use of accessory muscles Extremity Right lower extremity: ankle joint and foot and digits Other: scarring noted on right foot. hx of left foot stress fx limited ROM with inversion and rotation intermittent coolness and edema to right foot, notable atrophy to RLE compared to left notable change in color, edema, skin growth, and nail changes on right foot compared to left Neuro Common normals: oriented x3, CN's II-XII intact bilaterally, moves all extremities, no focal motor deficits, no sensory deficits noted and deep tendon reflexes 2+ bilaterally Sensorium/orientation: alert Motor exam: strength 5/5 throughout and no movement abnormalities noted Psych Common normals: mental status grossly normal, thought process normal, cooperative, affect normal, speech normal and activity/motor behavior normal Speech: normal speech Thought process: normal thought process Results Additional Findings Additional findings: If on a controlled substance or opioids, I have checked an [place]AR[place] report on this patient and there are no aberrancies noted in the prescribing history.??If on a controlled substance or opioid a drug screen was completed and reviewed within the last year, and if there has not been a drug screen completed we ordered one today to monitor higher risk, state monitored pain medication use. As part of providing excellent, safe, comprehensive care, the following was completed at our patient's visit: 1. A medication reconciliation and review to ensure accurate knowledge of current/active medications, including asking our patients to inform us about any wrln-pia-qjtzmei medications or herbal remedies/nutritional supplements/alternative remedies. 2. A review to specifically ensure our patients have had annual screening for screening for depression, screening for tobacco use, and screening for unhealthy alcohol use. For concerning screenings had a discussion with the patient, provided patient education, and recommended follow-up with primary care provider when appropriate. If patient noted with a risk of falling, they received education on strength, gait, and balance training to prevent future risk of falling. Portions of this note may have been carried over from the previous visit and updated as appropriate. Please note this office utilizes paper charting in addition to the electronic medical record. A list of current medications, vitals, and PMH is available there as the clinical staff outside of myself do not have access to [employer] charting during the clinic day operations. As part of providing quality comprehensive care the current medications, vitals, and PMH were reviewed in the paper chart. Assessment and Plan Assessment and Plan (1) CRPS (complex regional pain syndrome type I): Assessment and Plan: history of edema, temperature changes, skin changes, muscle atrophy, significant pain and dysthesia post injury and numerous foot surgeries. (2) Osteoarthritis of right ankle: (3) Neuropathy of right foot: (4) Chronic pain in right foot: Plan 39 year old female with chronic severe pain post injury/surgery in 2020. pt no longer following with podiatry. she failed to benefit from > 6 weeks of PT/HEP, heat, ice, tylenol, nsaids in the past. continue zonegran 100mg BID, and naproxen PRN. information provided on scs trial/implant. we also discussed lumbar sympathetic nerve block x2 for CRPS under fluoroscopy. pt can call to schedule, otherwise f/u 6 months for medication management
== END 2024-10-17 13:11 | disposition home or self-care (01) ==
LOC: PM 13:11
PROVIDERS: PCP Family Medicine; Visit Provider Nurse Practitioner
DX: M19.071 Primary osteoarthritis, right ankle and foot (principal); G90.59 Complex regional pain syndrome I of other specified site; G62.9 Polyneuropathy, unspecified; M79.671 Pain in right foot
CPT/HCPCS: G0463

== ENCOUNTER 2025-01-20 12:42 | Outpatient (OUT) | payer MEDICARE, SELFPAY ==
--- OUTSIDE RECORDS SUMMARY | 2025-01-13 14:00 | XMS_ITS | Encounter Summary ---
Author Organization [facility] Address [address] [place] [address] Care Team Providers Care Tuber Helper Name Role Phone Marquita Chawla MD Primary Care Provider + [phone] Reason for Visit * ReasonCommentsRt. breast bx results, breast clinic pt. Encounter Details DateTypeDepartmentCare Team (Latest Contact Info)Tctmzahzfhi55/24/2025 2:00 PM ESTOffice Visit [facility] [address] [facility] [address] [place] [phone] Mark Rendon, DO [address] [facility] [address] [place] [address] Fibroadenoma of right breast (Primary Dx) Social History Tobacco UseTypesPacks/DayYears UsedDateSmoking Tobacco: NeverAlcohol UseStandard Drinks/WeekCommentsYes0 (1 standard drink = 0.6 oz pure alcohol)AUDIT-CAnswer Date RecordedQ1: How often do you have a drink containing alcohol?Never 01/26/2023Q2: How many drinks containing alcohol do you have on a typical day when you are drinking?1 or Q3: How often do you have six or more drinks on one occasion?Ukrqqri5301/26/2023CommentsNoSex and Gender InformationValueDate RecordedSex Assigned at BirthNot on fileLegal SexFemale 05/04/2022 8:00 PM EDTGender IdentityNot on fileSexual OrientationNot on file documented as of this encounter Last Filed Vital Signs Vital SignReadingTime TakenCommentsBlood Hhsbjdgh079/9011/ 1:51 PM EST Pulse--Temperature--Respiratory Rate--Oxygen Saturation--Inhaled Oxygen Concentration--Hamtvr96.5 kg (173 lb)01/13/2025 1:51 PM IMUXmrfno747.7 cm (5' 8 )01/13/2025 1:51 PM ESTBody Mass Index26. 1:51 PM ESTdocumented in this encounter Progress Notes * Mark Jackson Justice, DO - 01/13/2025 2:00 PM EST Images from the original note were not included. Rena Juan 1985 Rena Juan is a 39 y.o. female presents with chief complaint of Rt. breast bx results, breast clinic pt. HPI: SAMAN Chase was seen in the breast clinic on 12/26/24 following her first mammogram that showed a mass in the right breast. She has a family history of breast cancer in her twin sister. The mass was biopsied and she presents for the results . SUBJECTIVE: MEDICATIONS: ALLERGIES Current Outpatient Medications Medication Instructions Aurovela FE 03/11 1-20 MG-MCG tablet 1 tablet, Oral, Daily Calcium Carb-Cholecalciferol (CALCIUM 500 + D PO) 500 mg, Daily cetirizine (ZYRTEC) 10 mg, Oral, Daily cholecalciferol (VITAMIN D-3) 2,000 Units, Daily fexofenadine ODT (SARIKA ODT) 30 mg, Daily FLUoxetine (PROZAC) 10 mg, Daily magnesium 200 mg, Oral, Daily meclizine (ANTIVERT) 25 mg, Oral, 3 times daily PRN metFORMIN XR (GLUCOPHAGE-XR) 500 mg, Oral, 2 times daily naproxen (NAPROSYN) 500 mg, 2 times daily with meals omeprazole (PriLOSEC) [address] capsule TAKE 1 CAPSULE BY MOUTH IN THE MORNING BEFORE A MEAL*DO NOT CRUSH OR CHEW* phentermine (ADIPEX-P) 37.5 mg, Oral, Daily before breakfast traMADol (Ultram) 50 MG tablet Vitamin C 500 mg, Daily Zinc 10 MG lozenge zonisamide (ZONEGRAN) 100 mg, 2 times daily Allergies[1] PAST MEDICAL HISTORY: SOCIAL HISTORY SURGICAL HISTORY: Medical History[2] Social History[3] Surgical History[4] FAMILY HISTORY Family History[5] REVIEW OF SYMPTOMS: Review of Systems OBJECTIVE: Visit Vitals BP 132/90 Ht 5' 8 Wt 173 lb BMI 26.30 kg/m?? OB Status Having periods Smoking Status Never BSA 1.94 m?? Physical Exam Chest: Comments: Right breast biopsy site is healed no ecchymosis ASSESSMENT AND PLAN: Assessment/Plan Diagnoses and all orders for this visit: Fibroadenoma of right breast - Right breast US limited; Future The path of the biopsy showed a benign fibroadenoma which was reviewed as concordant with the imaging. I discussed possible resection of the mass, but it is not bothering her. We will do a repeat right breast US in 6 mths to confirm stability. [1] Allergies Allergen Reactions Penicillins Hives, Itching, Rash and Swelling Fever, rash, swelling [2] Past Medical History: Diagnosis Date Acute pelvic [...] tendinitis, right Post-traumatic arthritis of right ankle [3] Social History Tobacco Use Smoking status: Never Substance Use Topics Alcohol use: Yes Drug use: Never [4] Past Surgical History: Procedure Laterality Date ANKLE FRACTURE SURGERY Right 2011 3 screws put in ANKLE SURGERY Left 02/2017 talar replacement with custom device, joint fusion - Dr. Muhammad COLONOSCOPY CYST REMOVAL Cysts FOOT SURGERY Right 12/2019 SALPINGOOPHORECTOMY Right Ovary & Tube Removed WRIST FRACTURE SURGERY Left 2011 metal plate put in [5] Family History Problem Relation Name Age of Onset Hypertension Mother Hypertension Sister Diabetes Sister Hypertension Maternal Grandmother Diabetes Maternal Grandfather Hypertension Maternal Grandfather documented in this encounter Plan of Treatment DateTypeDepartmentCare Team (Latest Contact Info)Vtormhvxnpd16/13/2026 1:00 PM ESTOffice Visit [facility] [place] [facility] [address] [place] [address] [place] [address] Emiliano Del Valle, DO [address] [facility] [place] [address] 07/30/2025 1:45 PM EDTOffice Visit [facility] [address] [phone] Mark Rendon, DO [address] [facility] [address] [place] [address] NameTypePriorityAssociated DiagnosesOrder ScheduleRight breast US limitedImaging Routine Fibroadenoma of right breast Expected: 07/13/2025, Expires: 03/15/2026documented as of this encounter Visit Diagnoses Diagnosis Fibroadenoma of right breast- Primary documented in this encounter Care Teams Team MemberRelationshipSpecialtyStart DateEnd Date Marquita Chawla MD [address] [place] [address] PCP - Eulqaxk81/19/23documented as of this encounter
--- OUTSIDE RECORDS SUMMARY | 2025-01-20 12:48 | XMS_ITS | Encounter Summary ---
Author Organization [facility] Address [address] [place] [address] Care Team Providers Care French Folding Machine Operator Name Role Phone Marquita Chawla MD Primary Care Provider + [phone] Encounter Details DateTypeDepartmentCare Team (Latest Contact Info)Zrgtjvmsxfm59/18/2025External Result Encounter [facility] Unsolicited Mark Rendon, DO [address] [address] Social History Tobacco UseTypesPacks/DayYears UsedDateSmoking Tobacco: NeverAlcohol UseStandard Drinks/WeekCommentsYes0 (1 standard drink = 0.6 oz pure alcohol)[facility] Date RecordedQ1: How often do you have a drink containing alcohol?Never 01/26/2023Q2: How many drinks containing alcohol do you have on a typical day when you are drinking?1 or Q3: How often do you have six or more drinks on one occasion?Gqqstsh19/07/2023CommentsNoSex and Gender InformationValueDate RecordedSex Assigned at BirthNot on fileLegal SexFemale 05/04/2022 8:00 PM EDTGender IdentityNot on fileSexual OrientationNot on file documented as of this encounter Plan of Treatment DateTypeDepartmentCare Team (Latest Contact Info)Rrieupzrdoa39/13/2026 1:00 PM ESTOffice Visit [facility] [place] [facility] [address] [place] [address] [place] [address] Emiliano Del Valle, DO [address] [facility] [place] [address] 07/30/2025 1:45 PM EDTOffice Visit [facility] [address] [address] [place] [phone] Mark Rendon, DO [address] [place] [address] [place] [address] documented as of this encounter Procedures Procedure NamePriorityDate/TimeAssociated DiagnosisCommentsUS BREAST BIOPSY, 1ST LESION RIGHT01/07/2025 9:41 AM EST documented in this encounter Results * US BREAST BIOPSY, 1ST LESION RIGHT (01/07/2025 9:41 AM EST)Anatomical Region LateralityModalityRadiographic ImagingSpecimen (Source)Anatomical Location / LateralityCollection Method / VolumeCollection TimeReceived Time01/07/2025 9:41 AM EST Impressions 01/07/2025 10:27 AM EST Successful ultrasound-guided breast lesion biopsy. ?? RESULT CODE: NL ? Right axillary ultrasound performed. No adenopathy identified. ? Impression dictated by: Pablo Watts M.D. 01/02/2025 2:17 PM ?? Tech: Claudette Mendez; Hannah Jacobs ? Transcribed By: ? VN ? 01/07/25 1022 ? Dictated By: ?Bryn Watts MD ?01/07/25 0941 ? Signed By: ?/18/25 1027 Narrative 01/07/2025 10:27 AM EST [facility] ? [facility] ?[address] ? [place] [address] ? Ultrasound Report ? Signed ? Patient: Middleswarth,Rena L ?MR#: ?? [id number] ? : 1985 ?Acct:[id number] ? Age/Sex: 39 / F ?ADM Date: 01/02/25 ? Loc: [facility] ?Room: ?Type: DEP SDC ?? Attending Dr: Mark Rendon DO ? Ordering Provider: Mark Rendon, DO ?? Date of Service: 01/02/25 ?? US/US biopsy RT 1st lesion guid: N63.14 ?? ([id number]) MM/MM post biopsy RT w/CAD: CLIP PLACEMENT ? Copies to: Mark Rendon, DO ?ADDENDUM ? The pathology report: Fibroadenoma. No evidence of malignancy. No further diagnostic assessment. Return to routine screening. ? Impression dictated by: Pablo Watts M.D. 01/07/2025 9:41 AM ? Ultrasound-guided breast lesion biopsy with vacuum assistance ? HISTORY: Developing right breast nodule ? PRIOR IMAGIN12/20/2024 ? TECHNIQUE: The region of concern was localized. Sterile technique and local lidocaine utilized. Core biopsy needle was advanced with ultrasound guidance Multiple core tissue samples of the lesion obtained. Before the needle was removed, biopsy marking clip placed. No immediate complications identified. ? Mammogram obtained for biopsy marking clip localization. Biopsy marking clip is seen within the lesion. ? Procedure Note Radiology, Radiologist, MD - 01/07/2025 [facility] [address] [place] [address] Ultrasound Report Signed Patient: Rena Juan LMR#: [id number] : 1985Acct:[id number] Age/Sex: 39 / FADM Date: 01/02/25 Loc: [facility] Room:Type: [facility] Attending Dr: Mark Rendon DO Ordering Provider: Mark Rendon DO Date of Service: 01/02/25 US/US biopsy RT 1st lesion guid: N63.14 ([id number]) MM/MM post biopsy RT w/CAD: CLIP PLACEMENT Copies to: Mark Rendon DO ADDENDUM The pathology report: Fibroadenoma. No evidence of malignancy. No further diagnostic assessment. Return to routine screening. Impression dictated by: Pablo Watts M.D. 01/07/2025 9:41 AM Ultrasound-guided breast lesion biopsy with vacuum assistance HISTORY: Developing right breast nodule PRIOR IMAGIN12/20/2024 TECHNIQUE: The region of concern was localized. Sterile technique andlocal lidocaine utilized. Core biopsy needle was advanced with ultrasound guidance Multiple core tissuesamples of the lesion obtained. Before the needle was removed, biopsy marking clip placed. Noimmediate complications identified. Mammogram obtained for biopsy marking clip localization. Biopsy markingclip is seen within the lesion. IMPRESSION: Successful ultrasound-guided breast lesion biopsy. RESULT CODE: NL Right axillary ultrasound performed. No adenopathy identified. Impression dictated by: Pablo Watts M.D. 01/02/2025 2:17 PM Tech: Claudette Jacobs Transcribed By: RENA 01/07/25 1022 Dictated By: Bryn Watts MD 01/07/25 0941 Signed By:01/07/25 1027 Authorizing ProviderResult TypeResult StatusFredric Renetta Rendon DOIMG XR PROCEDURESFinal Result documented in this encounter Visit Diagnoses Not on filedocumented in this encounter Care Teams Team MemberRelationshipSpecialtyStart DateEnd Date Marquita Chawla MD [address] [place] [phone] PCP - Gpozwah49/19/23documented as of this encounter
--- OUTSIDE RECORDS SUMMARY | 2025-01-20 12:48 | XMS_ITS | Clinical Summary ---
Author Organization [facility] Address [address] [place] [address] Phone Care Team Providers Care Commercial Loan Assistant Name Role Phone Unavailable Primary Care Provider Unavailabl e Encounters DateTypeDepartmentCare MpacUqhzfiejmob29/16/2025 2:25 PM EDT - 12/05/2024 11:59 PM EDTHospital Encounter [address] [place] [address] Family history of malignant neoplasm of breast Discharge Disposition: Home12/05/2024Travelfrom Last 3 Months Family History Medical HistoryRelationNameCommentsCervical cancerPaternal GrandmotherBreast cancerSisterRelationNameStatusCommentsPaternal GrandmotherSister Social History Tobacco UseTypesPacks/DayYears UsedDateSmoking Tobacco: Never Assessed CommentsNoSex and Gender InformationValueDate RecordedSex Assigned at BirthNot on fileLegal FetBkgndv29/25/2022 8:49 PM ESTGender IdentityNot on fileSexual OrientationNot on file Last Filed Vital Signs Vital SignReadingTime TakenCommentsBlood Pressure--Pulse--Temperature-- Respiratory Rate--Oxygen Saturation--Inhaled Oxygen Concentration--Lstiaz35.4 kg (175 lb)12/05/2024 2:27 PM GYWUljxil708.3 cm (5' 9 )12/05/2024 2:27 PM EDTBody Mass Index25.8412/05/2024 2:27 PM EDT Plan of Treatment Health MaintenanceDue DateLast DoneCommentsHIV Kxzbmrrqc72/12/1986Lipid Panel 1985Welcome to Medicare Visit1985Diabetes Imnqaqmgv33/12/2004 Hepatitis C Tlfzuesuj13/12/2004Hepatitis B Vaccines (1 of 3 - 19+ 3-dose series) 2004Cervical Cancer Gxgzuxnst75/12/2007HPV/Hgqvgk6908/01/2006Pap Smear 2006DTaP/Tdap/Td Vaccines (1 - Tdap)08/02/2007HPV Vaccines (1 - 3-dose standard series)2012Influenza Vaccine (#1)2024OVID-19 Vaccine (1 - season)2024Zoster Vaccines (1 of 2)08/02/2035MMR VaccinesCompleted 04/08/1997HIB VaccinesAged OutNo longer eligible based on patient's age to complete this topicHepatitis A VaccinesAged OutNo longer eligible based on patient's age to complete this topicIPV VaccinesAged OutNo longer eligible based on patient's age to complete this topicMeningococcal VaccineAged OutNo longer eligible based on patient's age to complete this topicPneumococcal Vaccine: Pediatrics and At-Risk Adult PatientsAged OutNo longer eligible based on patient's age to complete this topicRotavirus VaccinesAged OutNo longer eligible based on patient's age to complete this topic Procedures Procedure NamePriorityDate/TimeAssociated DiagnosisCommentsBI MAMMO BILATERAL SCREENING ETWOAWMKRCHBYYahgwsi57/16/2025 2:49 PM EDT Family history of malignant neoplasm of breast from Last 3 Months Results * (ABNORMAL) BI mammo bilateral screening tomosynthesis (12/05/2024 2:49 PM EDT) Anatomical RegionLateralityModalityBreastBilateralMammographySpecimen (Source) Anatomical Location / LateralityCollection Method / VolumeCollection Time Received Time12/08/2024 5:29 AM EDT1 5:29 AM EDT Impressions 12/08/2024 5:27 AM EDT Right breast mass. Further evaluation with ultrasound imaging and possible diagnostic mammogram is recommended. ?? No mammographic evidence of malignancy in the left breast. ?? BI-RADS CATEGORY: BI-RADS Category: ??0 Incomplete; Need Additional Imaging Evaluation Recommendation: ??Additional Imaging. Recommended Date: ??Immediate. Laterality: ??Right. ?? Based on the Tyrer-Cuzick model for breast cancer risk assessment, this patient is at an elevated risk of developing breast cancer and may benefit from additional screening with breast MRI or ultrasound. Please note that this estimate is based on responses provided on the patient questionnaire. For more information regarding high risk consultation, please call [phone]. ?? For any future breast imaging appointments, please call [phone] ([phone]). ?? MACRO: None ?? Signed by: Gavin Lomas 12/08/2024 5:27 AM Dictation workstation: ?? [id number] Narrative 12/08/2024 5:27 AM EDT Interpreted By: Gavin Lomas, STUDY: BI MAMMO BILATERAL SCREENING TOMOSYNTHESIS; ??12/05/2024 2:49 pm ?? ACCESSION NUMBER(S): [id number] ?? ORDERING CLINICIAN: INTERFACE UNSPECIFIELDPROVIDER ?? INDICATION: Screening. ?? ,Z80.3 Family history of malignant neoplasm of breast ?? COMPARISON: None. ?? FINDINGS: 2D and tomosynthesis images were reviewed at 1 mm slice thickness. ?? Density: There are scattered areas of fibroglandular density. ?? A mass is seen in the inferior medial right breast at anterior to middle depth. No suspicious masses or calcifications are identified in the left breast. ?? Procedure Note Gavin Lomas MD - 12/08/2024 Interpreted By: Gavin Lomas, STUDY: BI MAMMO BILATERAL SCREENING TOMOSYNTHESIS; 12/05/2024 2:49 pm ACCESSION NUMBER(S): [id number] ORDERING CLINICIAN: INTERFACE UNSPECIFIELDPROVIDER INDICATION: Screening. ,Z80.3 Family history of malignant neoplasm of breast COMPARISON: None. FINDINGS: 2D and tomosynthesis images were reviewed at 1 mm slice thickness. Density: There are scattered areas of fibroglandular density. A mass is seen in the inferior medial right breast at anterior to middle depth. No suspicious masses or calcifications are identified in the left breast. IMPRESSION: Right breast mass. Further evaluation with ultrasound imaging and possible diagnostic mammogram is recommended. No mammographic evidence of malignancy in the left breast. BI-RADS CATEGORY: BI-RADS Category: 0 Incomplete; Need Additional Imaging Evaluation Recommendation: Additional Imaging. Recommended Date: Immediate. Laterality: Right. Based on the Tyrer-Cuzick model for breast cancer risk assessment, this patient is at an elevated risk of developing breast cancer and may benefit from additional screening with breast MRI or ultrasound. Please note that this estimate is based on responses provided on the patient questionnaire. For more information regarding high risk consultation, please call [phone]. For any future breast imaging appointments, please call [phone] ([phone]). MACRO: None Signed by: Gavin Lomas 12/08/2024 5:27 AM Dictation workstation: [id number] Authorizing ProviderResult TypeResult StatusAmy Tarun Birmingham PAIMG BI PROCEDURESFinal Result from Last 3 Months Insurance
--- OUTSIDE RECORDS SUMMARY | 2025-01-20 12:48 | XMS_ITS | Encounter Summary ---
Author Organization [facility] Address [address] [place] [address] Care Team Providers Care Credit Balance Specialist Name Role Phone Marquita Chawla MD Primary Care Provider Encounter Details DateTypeDepartmentCare Team (Latest Contact Info)Padrnusqtoe51/17/2025Orders Only [facility] [address] [facility] [address] [place] [address] Mark Rendon, DO [address] [facility] [address] [place] [address] Social History Tobacco UseTypesPacks/DayYears UsedDateSmoking Tobacco: NeverAlcohol UseStandard Drinks/WeekCommentsYes0 (1 standard drink = 0.6 oz pure alcohol)[facility] Date RecordedQ1: How often do you have a drink containing alcohol?Never 01/26/2023Q2: How many drinks containing alcohol do you have on a typical day when you are drinking?1 or Q3: How often do you have six or more drinks on one occasion?Plhbcey3801/26/2023CommentsNoSex and Gender InformationValueDate RecordedSex Assigned at BirthNot on fileLegal SexFemale 05/04/2022 8:00 PM EDTGender IdentityNot on fileSexual OrientationNot on file documented as of this encounter Plan of Treatment DateTypeDepartmentCare Team (Latest Contact Info)Faztissaxrk59/13/2026 1:00 PM ESTOffice Visit [facility] [address] [facility] [phone] Emiliano Del Valle, DO [address] [facility] [place] [address] 07/30/2025 1:45 PM EDTOffice Visit [facility] [address] [facility] [address] [place] [address] Mark Rendon, DO [address] [facility] [address] [place] [address] documented as of this encounter Procedures Procedure NamePriorityDate/TimeAssociated DiagnosisCommentsGENERAL PATHOLOGY Gicbtmb6501/02/2025 9:27 AM ESTdocumented in this encounter Results * GENERAL PATHOLOGY (01/02/2025 9:27 AM EST) Narrative Authorizing ProviderResult TypeResult StatusFredric Renetta Rendon DOCLINISYNCFinal Result documented in this encounter Visit Diagnoses Not on filedocumented in this encounter Care Teams Team MemberRelationshipSpecialtyStart DateEnd Date Marquita Chawla MD [address] [place] [address] PCP - Kkdxpot48/19/23documented as of this encounter
--- OUTSIDE RECORDS SUMMARY | 2025-01-20 12:48 | XMS_ITS | Encounter Summary ---
Author Organization [facility] Address [address] [place] [address] Care Team Providers Care Product Support Specialist Name Role Phone Marquita Chawla MD Primary Care Provider [phone] Reason for Visit * ReasonCommentsMed Refill Encounter Details DateTypeDepartmentCare Team (Latest Contact Info)Lmeaswmcqwb31/24/2025Refill [facility] [address] [place] [phone] Emiliano Del Valle, [address] [place] [address] Acute cough Social History Tobacco UseTypesPacks/DayYears UsedDateSmoking Tobacco: NeverAlcohol UseStandard Drinks/WeekCommentsYes0 (1 standard drink = 0.6 oz pure alcohol)AUDIT-CAnswer Date RecordedQ1: How often do you have a drink containing alcohol?Never 01/26/2023Q2: How many drinks containing alcohol do you have on a typical day when you are drinking?1 or Q3: How often do you have six or more drinks on one occasion?Lndnihn0901/26/2023CommentsNoSex and Gender InformationValueDate RecordedSex Assigned at BirthNot on fileLegal SexFemale 05/04/2022 8:00 PM EDTGender IdentityNot on fileSexual OrientationNot on file documented as of this encounter Miscellaneous Notes * Telephone Encounter - Claire Dwyer LPN - 01/13/2025 9:27 AM EST Refill request received and sent to pharmacy. documented in this encounter Plan of Treatment DateTypeDepartmentCare Team (Latest Contact Info)Pdkrhnmxlkr31/13/2026 1:00 PM ESTOffice Visit [facility] [address] [facility] [place] [address] Emiliano Del Valle DO [address] [facility] [place] [address] 07/30/2025 1:45 PM EDTOffice Visit [facility] [address] [address] Mark Rendon, [address] [address] documented as of this encounter Visit Diagnoses Diagnosis Acute cough documented in this encounter Care Teams Team MemberRelationshipSpecialtyStart DateEnd Date Marquita Chawla MD [address] [place] [address] PCP - Bhuwcif03/19/23documented as of this encounter
--- OUTSIDE RECORDS SUMMARY | 2025-01-20 12:49 | XMS_ITS | Encounter Summary ---
Author Organization [facility] Address [address] [facility] [place] [address] Care Team Providers Care Machines Technician Name Role Phone Marquita Chawla MD Primary Care Provider [phone] Encounter Details DateTypeDepartmentCare Team (Latest Contact Info)Hfouteeigek84/24/2025Travel Social History Tobacco UseTypesPacks/DayYears UsedDateSmoking Tobacco: NeverAlcohol UseStandard Drinks/WeekCommentsYes0 (1 standard drink = 0.6 oz pure alcohol)[facility] Date RecordedQ1: How often do you have a drink containing alcohol?Never 01/26/2023Q2: How many drinks containing alcohol do you have on a typical day when you are drinking?1 or Q3: How often do you have six or more drinks on one occasion?Hlfykwv11/07/2023CommentsNoSex and Gender InformationValueDate RecordedSex Assigned at BirthNot on fileLegal SexFemale 05/04/2022 8:00 PM EDTGender IdentityNot on fileSexual OrientationNot on file documented as of this encounter Plan of Treatment DateTypeDepartmentCare Team (Latest Contact Info)Gaygjhczsho71/13/2026 1:00 PM ESTOffice Visit [facility] [place] [facility] [address] [facility] [place] [phone] Emiliano Del Valle DO [address] [place] [address] 07/30/2025 1:45 PM EDTOffice Visit [facility] [address] [address] Mark Rendon DO [address] [address] documented as of this encounter Visit Diagnoses Not on filedocumented in this encounter Care Teams Team MemberRelationshipSpecialtyStart DateEnd Date Marquita Chawla MD [address] [place] [address] PCP - Cclcmml62/19/23documented as of this encounter
--- OUTSIDE RECORDS SUMMARY | 2025-01-20 12:49 | XMS_ITS | Clinical Summary ---
Author Organization [facility] Address [address] [facility] [place] [address] Care Team Providers Care Director Of Grants Name Role Phone Unavailable Primary Care Provider Unavailabl e Source Comments The following information is NOT included in Care Everywhere downloads:Psychiatric notes, ECG results, Cardiac Rehab notes, Pulmonary Function notes, data from SmartForms (includes but not limited toPregnancy data,audiograms, eye exams, pre-surgical evaluation notes, well-child exam data).[facility] Allergies Active AllergyReactionsCriticalityNoted PhocMxxtdnkuNcuavhchprd99/20/2012 Medications MedicationSigDispense QuantityRefillsLast FilledStart DateEnd DateStatus acetaminophen (TYLENOL) 325 MG tablet Take 2 Tabs by mouth every 4 hours as needed. 60 Tab ctive enoxaparin (LOVENOX) 40 MG/0.4ML injection Inject 0.4 mL under the skin daily. 11.2 mL ctive ergocalciferol (DRISDOL) 94932 UNITS capsule Take 1 Cap by mouth daily. 30 Cap ctive calcium carbonate (OS-MARQUISE) 1250 MG tablet Take 1 Tab by mouth daily. 30 Tab ctive naproxen (NAPROSYN) 500 MG tablet Take 1 Tab by mouth 2 times daily. 60 Tab ctive naproxen (NAPROSYN) 500 MG tablet Take 1 Tab by mouth 2 times daily. 60 Tab ctive cyclobenzaprine (FLEXERIL) 10 MG tablet Take 10 mg by mouth 3 times daily as needed.Active meloxicam (MOBIC) 15 MG tablet Take 1 Tablet by mouth daily. 30 Tablet Active promethazine (PHENERGAN) 25 MG tablet Take 1 Tablet by mouth every 6 hours as needed for Nausea. 30 Tablet Active tramadol (ULTRAM) 50 MG tablet Take 1 Tablet by mouth every 6 hours as needed for Pain. 50 Tablet Active Active Problems ProblemNoted DateDiagnosed DateClosed fracture of base of fifth metatarsal bone of right foot at metaphyseal-diaphyseal libjmorh78/10/2017Fracture, talus, open 09/28/2011Other closed fractures of distal end of radius (alone)09/08/2011nkle fracture, right07/10/2011 Resolved Problems ProblemNoted DateDiagnosed DateResolved DateWrist kpgenwpk21 Family History Medical HistoryRelationNameCommentsDiabetes MellitusMaternal GrandfatherColon CancerMaternal GrandmotherRelationNameStatusCommentsMaternal GrandfatherMaternal Grandmother Social History Tobacco UseTypesPacks/DayYears UsedDateSmoking Tobacco: NeverSmokeless Tobacco: NeverAlcohol UseStandard Drinks/WeekCommentsYes3.3 (1 standard drink = 0.6 oz pure alcohol)4 beers per weekend outing, once a weekSexually ActiveBirth Control PartnersCommentsYesMalepreviously ortho-tri OCPs prior to oophorectomy 2007 Substance UseTypesUse/WeekCommentsNoCommentsUnknownSex and Gender InformationValueDate RecordedSex Assigned at BirthNot on fileLegal SexFemale 12/25/2011 1:26 PM ESTGender IdentityNot on fileSexual OrientationNot on file Last Filed Vital Signs Vital SignReadingTime TakenCommentsBlood Gdqhwvsn312/6306 6:00 AM EDT Rlihn95197/01/2012 6:00 AM IKEHhgmaayoguq27 ??C (98.6 ??F)07/22/2011 6:00 AM EDT Respiratory Wxpu4211 6:00 AM EDTOxygen Fecqatfkbw636%07/20/2011 3:00 AM EDTInhaled Oxygen Concentration--Rsbmal94.3 kg (155 lb)07/14/2011 7:23 PM EDT Xgucoq548.2 cm (5' 7 )07/14/2011 7:23 PM EDTBody Mass Index24.2805 7:23 PM EDT Plan of Treatment Health MaintenanceDue DateLast DoneCommentsMammography (shared decision-making, age 35-39)1985HIV Test2000Hepatitis C Tmrqkdue04/12/2004Tdap Booster 08/02/2003Hepatitis A (HAV) Vaccine (optional start 19+ years)2004 Hepatitis B (HBV) Vaccine (1 of 3 - 19+ 3-dose series)2004Pap Smear 2006HPV Vaccine (optional start 27-45 years)2012nnual Wellness Visit (G0438)12/21/2014COVID-19 Vaccine ( - 2024- season)2024Influenza Vaccine (#1)2024Shingles (RZV) Vaccine (1 of 2)08/02/2035Mammography DiscontinuedPneumococcal Vaccine(s)Aged OutNo longer eligible based on patient's age to complete this topic Insurance Advance Directives * Full Code (Latest Code Status on File) Date ActivatedDate InactivatedComments07/14/2011 5:19 PM07/22/2011 4:30 PM * Full Code Date ActivatedDate InactivatedComments07/10/2011 12:20 PM07/14/2011 5:19 PM
--- OUTSIDE RECORDS SUMMARY | 2025-01-20 12:49 | XMS_ITS | Clinical Summary ---
Author Organization [facility] Address [address] [place] [address] Care Team Providers Care Motor Grader Operator Name Role Phone Marquita Chawla MD Primary Care Provider + [phone] Allergies Active AllergyReactionsCriticalityNoted DateCommentsPenicillinsHives,Itching, Rash,LvkfmxlsBzn31/20/2012 Fever, rash, swelling Medications MedicationSigDispense QuantityRefillsLast FilledStart DateEnd DateStatus Ascorbic Acid (Vitamin C) 500 MG capsule Take 500 mg by mouth DailyActive fexofenadine ODT (Lisa ODT) 30 MG disintegrating tablet Take 30 mg by mouth DailyActive cholecalciferol (Vitamin D-3) 50 MCG (1999) capsule Take 2,000 Units by mouth DailyActive naproxen (Naprosyn) 500 MG tablet Take 500 mg by mouth in the morning and 500 mg in the evening. Take with meals. Active magnesium 200 MG tablet Take 200 mg by mouth in the morning.Active meclizine (Antivert) 25 MG tablet Take 25 mg by mouth 3 (three) times a day as neededActive Calcium Carb-Cholecalciferol (CALCIUM 500 + D PO) Take 500 mg by mouth DailyActive Zinc 10 MG lozenge Active traMADol (Ultram) 50 MG tablet 06/28/2022ctive phentermine (Adipex-P) 37.5 MG tablet Indications:Encounter for weight managementTake 1 tablet (37.5 mg) by mouth in the morning. Take before meals. 90 tablet 06/27/2023ctive zonisamide (Zonegran) 100 MG capsule Take 100 mg by mouth in the morning and 100 mg before bedtime.4Active Aurovela FE 03/11 1-20 MG-MCG tablet Indications:Uses controlTAKE 1 TABLET BY MOUTH EVERY DAY 84 tablet 5Active FLUoxetine (PROzac) 10 MG capsule Take 10 mg by mouth Daily5Active cetirizine (ZyrTEC) 10 MG tablet Take 10 mg by mouth DailyActive metFORMIN XR (Glucophage-XR) 500 MG 24 hr tablet Indications:Metabolic syndromeTake 1 tablet (500 mg) by mouth in the morning and 1 tablet (500 mg) before bedtime. 180 tablet 5Active omeprazole (PriLOSEC) [address] capsule Indications:Acute coughTAKE 1 CAPSULE BY MOUTH IN THE MORNING BEFORE A MEAL*DO NOT CRUSH OR CHEW* 90 capsule 5Active omeprazole (PriLOSEC) [address] capsule Indications:Acute coughTake 1 capsule (20 mg) by mouth in the morning. Take before meals. Do not crush or chew.. 30 capsule 1105103/15/2024Discontinued Active Problems ProblemNoted DateDiagnosed DateFibroadenoma of right ldsgxn4101/13/2025 Encounters DateTypeDepartmentCare EfcaIoiafwcbtdh15/24/2025 2:00 PM ESTOffice Visit [facility] [address] [place] [address] Mark Rendon, DO Fibroadenoma of right breast (Primary Dx)01/13/20254343Xrtjjr38/24/2025Refill [facility] [address] [place] [address] [place] [address] Emiliano Del Valle, DO Acute cough01/07/2025External Result Encounter [facility] External Department Unsolicited Mark Rendon, DO 01/06/2025Orders Only [facility] [address] [place] [address] Mark Rendon, DO 01/02/2025Orders Only [facility] [address] [place] [address] Jacquelyn Blue MD 12/30/20249930Wznuyo77/03/2025Telephone [facility] [address] [facility] [place] [address] Toshia Blue PA Breast Problem (Breast Center- Biopsy)12/20/2024External Result Encounter [facility] External Department Unsolicited Toshia Blue PA 12/11/2024Telephone [facility] [address] [facility] [place] [address] Karen Jarrett MA 12/09/2024Telephone [facility] [address] [facility] [place] [address] Karen Jarrett MA from Last 3 Months Family History Medical HistoryRelationNameCommentsDiabetesMaternal GrandfatherHypertension Maternal GrandfatherHypertensionMaternal GrandmotherHypertensionMotherDiabetes SisterHypertensionSisterRelationNameStatusCommentsFatherDeceasedMaternal GrandfatherMaternal VbmuplsqwbbWajzttOsqqhLqdjolUhgsj8EmqQtfww Social History Tobacco UseTypesPacks/DayYears UsedDateSmoking Tobacco: Never Tobacco Cessation:Counseling Given: Not Answered Alcohol UseStandard Drinks/WeekCommentsYes0 (1 standard drink = 0.6 oz pure alcohol)AUDIT-CAnswerDate RecordedQ1: How often do you have a drink containing alcohol?Never01/26/2023Q2: How many drinks containing alcohol do you have on a typical day when you are drinking?1 or Q3: How often do you have six or more drinks on one occasion?Aruxdym0101/26/2023CommentsNoSex and Gender InformationValueDate RecordedSex Assigned at BirthNot on fileLegal SexFemale 05/04/2022 8:00 PM EDTGender IdentityNot on fileSexual OrientationNot on file Last Filed Vital Signs Vital SignReadingTime TakenCommentsBlood Pfeulaef383/9011/ 1:51 PM EST Pulse--Temperature--Respiratory Rate--Oxygen Saturation--Inhaled Oxygen Concentration--Nmjsko37.5 kg (173 lb)01/13/2025 1:51 PM OQGUpecau524.7 cm (5' 8 )01/13/2025 1:51 PM ESTBody Mass Index26. 1:51 PM EST Plan of Treatment DateTypeDepartmentCare Team (Latest Contact Info)Ofmppwmsfew52/13/2026 1:00 PM ESTOffice Visit [facility] [address] [facility] [place] [address] Emiliano Del Valle, DO [address] [facility] [place] [address] 07/30/2025 1:45 PM EDTOffice Visit [facility] [address] [place] [address] Mark Rendon, DO [address] [place] [address] Procedures Procedure NamePriorityDate/TimeAssociated DiagnosisCommentsUS BREAST BIOPSY, 1ST LESION RIGHT01/07/2025 9:41 AM EST GENERAL FAJGWBQGDLlfsoeg20/13/2025 9:27 AM ESTBI MAMMOGRAM DIAGNOSTIC TOMOSYNTHESIS RIGHT12/20/2024 3:19 PM EDT BI MR BREAST BILATERAL W CONTRAST W TVEIhqtxmi21/31/2025 2:47 PM EDTfrom Last 3 Months Results * US BREAST BIOPSY, 1ST LESION [...] 2:17 PM ?? Tech: Claudette Mendez; Hannah Reynaldo ? Transcribed By: ? VN ? 01/07/25 1022 ? Dictated By: ?Bryn Watts MD ?01/07/25 0941 ? Signed By: ?01/07/ 1027 Narrative 01/07/2025 10:27 AM [facility] ?[address] ? [place] [address] ? Ultrasound Report ? Signed ? Patient: Rena Juan ?MR#: ?? [id number] ? : 1985 ?Acct:[id number] ? Age/Sex: 39 / F ?ADM Date: 01/02/25 ? Loc: [facility] ?Room: ?Type: DEP SDC ?? Attending Dr: Mark Rendon DO ? Ordering Provider: Mark Rendon DO ?? Date of Service: 01/02/25 ?? US/US biopsy RT 1st lesion guid: N63.14 ?? ([id number]) MM/MM post biopsy RT w/CAD: CLIP PLACEMENT ? Copies to: Mark Rendon DO ?ADDENDUM ? The pathology report: Fibroadenoma. [...] the lesion. ? Procedure Note Radiology, Radiologist, - 01/07/2025 [facility] [address] [place] [address] Ultrasound Report Signed Patient: Rena Juan LMR#: [id number] : 1985Acct:[id number] Age/Sex: 39 / FADM Date: 01/02/25 Loc: [facility] Room:Type: [facility] Attending Dr: Mark Rendon DO Ordering Provider: Mark Rendon DO Date of Service: 01/02/25 US/US biopsy RT 1st lesion guid: N63.14 ([id number]) MM/MM post biopsy RT w/CAD: CLIP PLACEMENT [...] 0941 Signed By:01/07/25 1027 Authorizing ProviderResult TypeResult StatusFredroslyn Rendon DOIMG XR PROCEDURESFinal Result * GENERAL PATHOLOGY (01/02/2025 9:27 AM EST) Narrative Authorizing ProviderResult TypeResult StatusFrjarrett Rendon DOCLINISYNCFinal Result * Right diagnostic mammogram with tomosynthesis (12/20/2024 3:19 PM EDT) Anatomical RegionLateralityModalityBreastRightMammographySpecimen (Source) Anatomical Location / LateralityCollection Method / VolumeCollection Time Received Time12/20/2024 3:19 PM EDT Impressions 12/20/2024 3:27 PM EDT Redemonstration of right breast nodule with concordant finding of oval well- circumscribed homogeneously hyperechoic nodule with targeted ultrasound. Likely represents a fibroadenoma. Options discussed with patient. Patient opted for ultrasound- guided biopsy. ? RESULT CODE: 4 ?Suspicious Abnormality - Biopsy Considered ? DENSITY CODE: 2 (approximately 25-50% glandular) There are scattered areas of fibroglandular density. ? FOLLOW UP: BIO ? THE FALSE-NEGATIVE RATE OF MAMMOGRAPHY IS APPROXIMATELY 10%. ? IMAGING OF A PALPABLE ABNORMALITY MUST BE BASED ON CLINICAL GROUNDS. ? PATIENT WAS ENTERED INTO A REMINDER SYSTEM WITH A TARGET DUE DATE FOR THE NEXT MAMMOGRAM. ? Impression dictated by: Pablo Watts M.D. ??12/20/2024 3:23 PM ? Dictation Location: DWS01 ? Tech: Sandra Cisneros; Tran Huizar ? Transcribed By: ? PWS ?12/20/24 1523 ? Dictated By: ?Pablo Watts DO ?12/20/24 1519 ? Signed By: <Electronically signed by Pablo Watts, DO in OV> ? 12/20/24 1523 Narrative 12/20/2024 3:27 PM EDT [facility] ?[address] ? [place], [place] [address] ? Ultrasound Report ? Signed ? Patient: Middleswarth,Erna L ?MR#: ?? [id number] ? : 1985 ?Acct:[id number] ? Age/Sex: 39 / F ?ADM Date: 12/20/24 ? Loc: [place] ?Room: ?Type: REG CLI ?? Attending Dr: Toshia Blue PA-C ? Ordering Provider: Toshia Blue PHARMACY GRADUATE INTERN-C ?? Date of Service: 12/20/24 ?? MM/MM diagnostic mammo RT w/CAD: R92.8 ?? ([id number]) US/US breast RT limited: R92.8 ? Copies to: Toshia MAKI ? BILATERAL ??Screening ??Full Field digital mammogram with 3-D imaging. ? Spot compression with mediolateral view ? COMPARISON: 12/05/2024 ? HISTORY: Follow-up of right breast nodule. Family history of breast cancer ? BREAST COMPOSITION: Scattered fibroglandular densities of the breast parenchyma identified ? BREAST CALCIFICATIONS: Benign calcifications present. ? VASCULAR CALCIFICATIONS: None ? ARCHITECTURAL DISTORTION: None ? BREAST NODULE: The right breast nodule redemonstrated. ? AXILLARY LYMPH NODES: Normal ? POSTSURGICAL CHANGES: None ? Targeted right breast ultrasound. At the 5:00 position 2 cm from the nipple there is a subcutaneous homogeneously hypoechoic well-defined nodule measuring 1.3 x 0.7 x 1.1 cm. ? US/US breast RT limited ?? Procedure Note Radiology, Radiologist, MD - 12/20/2024 [facility] [address] [place] [address] Ultrasound Report Signed Patient: Rena Juan LMR#: [id number] : 1985Acct:[id number] Age/Sex: 39 / FADM Date: 12/20/24 Loc: [place] Room:Type: [facility] Attending Dr: Toshia Blue PA-C Ordering Provider: Toshia MAKI Date of Service: 12/20/24 MM/MM diagnostic mammo RT w/CAD: R92.8 ([id number]) US/US breast RT limited: R92.8 Copies to: Toshia MAKI BILATERAL Screening Full Field digital mammogram with 3-D imaging. Spot compression with mediolateral view COMPARISON: 12/05/2024 HISTORY: Follow-up of right breast nodule. Family history of breast cancer BREAST COMPOSITION: Scattered fibroglandular densities of the breastparenchyma identified BREAST CALCIFICATIONS: Benign calcifications present. VASCULAR CALCIFICATIONS: None ARCHITECTURAL DISTORTION: None BREAST NODULE: The right breast nodule redemonstrated. AXILLARY LYMPH NODES: Normal POSTSURGICAL CHANGES: None Targeted right breast ultrasound. At the 5:00 position 2 cm from thenipple there is a subcutaneous homogeneously hypoechoic well-defined nodule measuring 1.3 x 0.7 x 1.1 cm. US/US breast RT limited IMPRESSION: Redemonstration of right breast nodule with concordant finding of ovalwell- circumscribed homogeneously hyperechoic nodule with targeted ultrasound.Likely represents a fibroadenoma. Options discussed with patient. Patient opted forultrasound-guided biopsy. RESULT CODE: 4 Suspicious Abnormality - Biopsy Considered DENSITY CODE: 2 (approximately 25-50% glandular) There are scattered areasof fibroglandular density. FOLLOW UP: BIO THE FALSE-NEGATIVE RATE OF MAMMOGRAPHY IS APPROXIMATELY 10%. IMAGING OF A PALPABLE ABNORMALITY MUST BE BASED ON CLINICAL GROUNDS. PATIENT WAS ENTERED INTO A REMINDER SYSTEM WITH A TARGET DUE DATE FOR THENEXT MAMMOGRAM. Impression dictated by: Pablo Watts M.D. 12/20/2024 3:23 PM Dictation Location: [facility] Tech: Sandra Huizar Transcribed By: PWS 12/20/24 1523 Dictated By: Pablo Watts DO 12/20/24 1519 Signed By: <Electronically signed by Pablo Watts DO in OV> 12/20/24 1523 Authorizing ProviderResult TypeResult StatusToshia Blue PAIMG BI PROCEDURESFinal Result * Bilateral breast MR with IV contrast (12/20/2024 2:47 PM EDT)Anatomical Region LateralityModalityBreastBilateralMagnetic Resonance Narrative Authorizing ProviderResult TypeResult StatusKeldylon Blue MDG MRI PROCEDURES Final Result from Last 3 Months Insurance Care Teams Team MemberRelationshipSpecialtyStart DateEnd Date Marquita Chawla MD [place] [address] PCP - Wbnlwkj58/19/23
--- OUTSIDE RECORDS SUMMARY | 2025-01-20 12:54 | XMS_ITS | CCD ---
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 Name Role Phone PROVIDER, UNKNOWN Attending Unavailable PROVIDER, UNKNOWN Admitting Unavailable VIVIANA BOONE Referring Unavailable Anthony Higgins Unavailable Unavailable Primary Care Provider MD Marquita Matos Primary Care Provider [phone] GLYNN Garcia Attending Provider [phone] Sandra Garcia Unavailable RAPHAEL MUHAMMAD Admitting Unavailable RAPHAEL MUHAMMAD Attending Unavailable DR MARQUITA CHAWLA Primary Care Unavailable CALIN, DR JAVIER Marcus Consulting Unavailable RAPHAEL MUHAMMAD Consulting Unavailable DR MARQUITA CHAWLA Primary Care Unavailable KELLY, DR STANFORD Tadeo Consulting Unavailabl josh MENDOZA, DR STANFORD Tadeo Attending Unavailabl josh MENDOZA, DR STANFORD Tadeo Admitting Unavailabl e NIDIA PIPER Consulting Unavailable LAKSHMIPATHY ., NARENDRANATH Admitting Cheri vailable LAKSHMIPATHY ., NARENDRANATH Consulting Cheri vailable LAKSHMIPATHY ., JINNYATH Attending Cheri vailable DR MARQUITA CHAWLA Primary Care Unavailable LAKSHMIPATHY ., NARENDRANATH Attending Cheri vailable LAKSHMIPATHY ., NARENDRANATH Admitting Cheri vailable LAKSHMIPATHY ., JACKSONENDRANATH Consulting Cheri vailaDR MARQUITA Yadav Primary Care Unavailable DR MARQUITA CHAWLA Primary Care Unavailable RAPHAEL MUHAMMAD Referring Unavailable LAKSHMIPATHY ., NARENDRANATH Attending Cheri vailable LAKSHMIPATHY ., NARENDRANATH Admitting Cheri vailable LAKSHMIPATHY ., NARENDRANATH Consulting Cheri vailable MEKHI ., FIONA Consulting Unavailable MEKHI ., FIONA Attending Unavailable MEKHI ., FIONA Admitting Unavailable CAMMY, DR MARQUITA An Primary Care Unavailable FLO, JOSE DAVID Attending Unavailable FLO, JOSE DAVID Admitting Unavailable PARVEZ, DR TAYLA Richmond Consulting Unavailable CAMMY, DR MARQUITA An Primary Care Unavailable JOSE DAVID ROSIS Consulting Unavailable CAMMY, DR MARQUITA An Primary Care Unavailable STEVE, RAPHAEL Guerin Admitting Unavailable STEVE, RAPHAEL Guerin Attending Unavailable PARVEZ, DR TAYLA Richmond Consulting Unavailable STEVE, RAPHAEL Guerin Consulting Unavailable CAMMY, DR MARQUITA An Primary Care Unavailable ELIGIO ., DR CAMPA Consulting Unavailable ELIGIO ., DR CAMPA Attending Unavailable ELIGIO ., DR CAMPA Admitting Unavailable HIGHLANDER, RAPHAEL Guerin Admitting Unavailable HIGHLANDER, RAPHAEL Guerin Attending Unavailable ZIEBER, DR JAVIER Marcus Consulting Unavailable CAMMY, DR MARQUITA An Primary Care Unavailable STEVE, RAPHAEL Guerin Consulting Unavailable Marquita Chawla MD Primary Care Provider Unavailable Primary Care Provider UnavailMarquita Teixeira MD Primary Care Provider Demond Lowery DO Attending Provider TOSHIA REINOSO Attending Unavailable TOSHIA REINOSO Unavailable EMILIANO DEL VALLE Attending Unavailable Unavailable Primary Care Provider UnavailTOSHIA Hicks Referring Unavailable Marquita Chawla MD Primary Care Provider Toshia Reinoso PA-C Attending Provider Marquita Chawla MD Primary Care Provider Toshia Reinoso PA-C Attending Provider [phone] Mark Rendon DO Attending Provider Marquita Chawla Primary Care Unavailable Toshia Reinoso Admitting Unavailable Toshia Reinoso Attending Unavailable Marquita Chawla Primary Care Unavailable Mark Rendon Admitting Unavailable Mark Rendon Attending Unavailable Allergies Allergy ClassificationReported Allergen(s)Allergy TypeDate of OnsetReaction(s) Facility (18 sources)Penicillins; Translations: [PENICILLINS]Propensity to adverse reactions to drug (disorder)19-47-1770Efgcu, Itching, Rash, SwellingThe [facility] Repository (3 sources)Penicillin GDrug Allergyfever, [facility] foundationTytoArcadia [facility] Other (1 source)DesonideDrug AllergyThe [facility] Repository (1 source)ALLERGIES NOT ON FILE; Translations: [ALLERGIES NOT ON FILE]Propensity to adverse reactions (disorder)[facility] Repository (1 source)PenicillinDrug Ixtizbl41-71-7222AvivkeijmVeterans [facility] Administration Repository Medications Current Medications MedicationDrug Class(es)DatesSig (Normalized)Sig (Original)acetaminophen 325 mg oral tablet (3 sources)Start: 24-37-8966adss 2 tablets by mouth every four hours as needed acetaminophen (TYLENOL) 325 MG tablet Take 2 Tabs by mouth every 4 hours as needed. 60 Tab 3 07/21/2011 Activeascorbic acid 500 mg oral capsule (14 sources)Vitamin Ctake 1 capsule by mouth in the morningAscorbic Acid (Vitamin C) 500 MG capsule Take 500 mg by mouth in the morning. ActiveVitamin C ActiveCalcium Carb-Cholecalciferol (CALCIUM 500 + D PO) (13 sources)Calcium Carb-Cholecalciferol (CALCIUM 500 + D PO) Take 500 mg by mouth in the morning. Activecalcium carbonate 500 mg oral tablet (3 sources)Start: 62-40-6323kqwe 1 tablet by mouth once dailycalcium carbonate (OS-MARQUISE) 1250 MG tablet Take 1 Tab by mouth daily. 30 Tab 3 10/03/2012 Active cetirizine hydrochloride 10 mg oral tablet (5 sources)Histamine-1 Receptor AntagonistStart: 89-14-9422fnwmwbxnneytymn 0.05 mg oral capsule (13 sources)Vitamin Dtake 1 capsule by mouth in the morningcholecalciferol (Vitamin D-3) 50 MCG (2000 UT) capsule Take 2,000 Units by mouth in the morning. Activecodeine phosphate 2 mg/ml / guaiFENesin 20 mg/ml oral solution (4 sources)Opioid AgonistStart: 12-27-9715yzwe 1 mL by mouth every six hours as needed for coughStart: 45-10-1264bdek 10 mL by mouth every four to six hours as needed for coughguaiFENesin-Codeine 100-10 MG/5ML 10 mL as needed Orally every 4-6 hrs as needed for cough for 3 days Jan, Activecyclobenzaprine hydrochloride 10 mg oral tablet (5 sources)Muscle Relaxanttake 1 tablet by mouth three times daily as needed cyclobenzaprine (FLEXERIL) 10 MG tablet Take 10 mg by mouth 3 times daily as needed. Activedoxycycline monohydrate 100 mg oral capsule (4 sources)Tetracycline-class DrugStart: 90-72-3217bqkd 1 capsule by mouth twice dailyStart: 20-70-3891svek 1 capsule by mouth every twelve hoursDoxycycline Monohydrate 100 MG 1 capsule Orally Twice a day for 10 day(s) Dec, Active0.4 ml enoxaparin sodium 100 mg/ml prefilled syringe (2 sources)Low Molecular Weight HeparinStart: 04-29-0198pcxpar 0.4 mL by subcutaneous injection once dailyenoxaparin (LOVENOX) 40 MG/0.4ML injection Inject 0.4 mL under the skin daily. 11.2 mL 0 07/21/2011ctiveergocalciferol 1.25 mg oral capsule (3 sources)Provitamin D2 CompoundStart: 99-60-9200fwkb 1 capsule by mouth once dailyergocalciferol (DRISDOL) 27749 UNITS capsule Take 1 Cap by mouth daily. 30 Cap 3 10/03/2012 ActiveEthinyl Estradiol / Ferrous fumarate / Norethindrone (18 sources)EstrogenStart: 80-17-9506aryo 1 tablet by mouth once dailyAurovela FE 03/11 1-20 MG-MCG tablet Indications: Uses control TAKE 1 TABLET BY MOUTH EVERY DAY 84 tablet 3 05/24/2024 ActiveStart: 17-12-7388Hqjzy: 02-20-2024 Start: 06-19-2023 End: 51-54-9864rhqx 1 tablet by mouth once daily, then take 1 tablet by mouth once dailynorethindrone-ethinyl estradiol (Junel FE 03/11) 1-20 MG-MCG tablet Indications: Uses control Take 1 tablet by mouth Daily Take 1 tablet by mouth daily 360 tablet 06/19/2023 06/18/2024 Activetake 1 tablet by mouth every twenty-four hoursLoestrin Fe 1.5/30 1.5-30 MG-MCG 1 tablet Orally Once a day for 28 day(s) Activefexofenadine hydrochloride 30 mg disintegrating oral tablet (16 sources)Histamine-1 Receptor Antagonisttake 1 tablet by mouth in the morning fexofenadine ODT (Lisa ODT) 30 MG disintegrating tablet Take 30 mg by mouth in the morning. Activetake 1 tablet by mouth twice dailyAllegra 60 MG 1 tablet Orally Twice a day ActiveFLUoxetine 10 mg oral capsule (2 sources)Serotonin Reuptake InhibitorStart: 47-86-5729kbqe 1 capsule by mouth once dailyFLUoxetine (PROzac) 10 MG capsule Take 10 mg by mouth Daily 09/04/2024 Activefluticasone propionate 0.05 mg/actuat metered dose nasal spray (2 sources)Corticosteroidtake 1 spray(s) nasal route once dailyFlonase 50 MCG/ACT 1 spray in each nostril Nasally Once a day Activegabapentin 600 mg oral tablet (1 source)Anti-epileptic AgentGabapentin 600 MG TAKE 2 TABLETS IN THE AM, 1 TABLET IN THE AFTERNOON, AND 2 TABLETS AT BEDTIME Oral for 30 Days Active linaclotide 0.29 mg oral capsule (16 sources)Guanylate Cyclase-C AgonistStart: 05-09-2023 End: 67-53-6803vcqg 1 capsule by mouth once dailytake 1 capsule by mouth every twenty-four hoursLinzess 290 MCG 1 capsule Orally Once a day for 30 days Active take 1 capsule by mouth every twenty-four hoursLinzess 145 MCG 1 capsule Orally Once a day for 30 day(s) ActiveMagnesium (13 sources)take 1 tablet by mouth in the morningmagnesium 200 MG tablet Take 200 mg by mouth in the morning. Activemeloxicam 15 mg oral tablet (3 sources)Nonsteroidal Anti-inflammatory DrugStart: 92-31-3764akrt 1 tablet by mouth once dailymeloxicam (MOBIC) 15 MG tablet Take 1 Tablet by mouth daily. 30 Tablet 3 11/30/2015 Qedrbl21 hr metFORMIN hydrochloride 500 mg extended release oral tablet (18 sources)BiguanideStart: 02-08-2023 End: 47-51-4039gjjp 1 tablet by mouth every twenty-four hoursmetFORMIN HCl ER 500 MG Oral for 90 Days ActivemethylPREDNISolone 4 mg oral tablet (3 sources)CorticosteroidStart: 03-80-4415ifwk 1 tablet by mouth oncenaproxen 500 mg oral tablet (20 sources)Nonsteroidal Anti-inflammatory DrugStart: 33-68-7970sfag 1 tablet by mouth twice dailyNorethindrone Ac-Eth Estradiol ( ()) 1.5-30 mg- mcg tablet (1 source)Start: 80-78-8218ezqg 1 tablet by mouth once dailyNorethindrone Ac-Eth Estradiol ( ()) 1.5-30 mg-mcg tablet Active 1 TAB PO Daily May 09, 2023 12:00amomeprazole 20 mg delayed release oral capsule (9 sources)Proton Pump InhibitorStart: 02-28-2024 End: 46-00-2866qkqn 1 capsule by mouth before mealtimeomeprazole (PriLOSEC) [address] capsule Indications: Acute cough Take 1 capsule (20 mg) by mouth in the morning. Take before meals. Do not crush or chew.. 30 capsule 11 02/28/2024 02/27/2025 Activephentermine hydrochloride 37.5 mg oral tablet (12 sources)Sympathomimetic Amine AnorecticStart: 83-51-3985vill 1 tablet by mouth before mealtimephentermine (Adipex-P) 37.5 MG tablet Indications: Encounter for weight management Take 1 tablet (37.5 mg) by mouth in the morning. Take before meals. 90 tablet 06/27/2023 ActivepredniSONE 20 mg oral tablet (2 sources)Start: 88-06-5885gtso 1 tablet by mouth every twelve hourspredniSONE 20 MG 1 tablet Orally twice a day for 5 days Jan, ActiveStart: 71-05-1240vgny 1 tablet by mouth every twelve hourspredniSONE 20 MG 1 tablet Orally twice a day for 5 days Dec, Activepromethazine hydrochloride 25 mg oral tablet (4 sources)PhenothiazineStart: 99-63-6903ajet 1 tablet by mouth every six hours as needed for nauseapromethazine (PHENERGAN) 25 MG tablet Take 1 Tablet by mouth every 6 hours as needed for Nausea. 30Tablet 0 11/30/2015 ActivePhenergan 12.5mg 12.5mg as directed by mouth ActivetraMADol hydrochloride 50 mg oral tablet (17 sources)Opioid AgonistStart: 69-48-6796skos 1-2 tablets by mouth twice daily as needed for paintraMADol (Ultram) 50 MG tablet 1-2 tablets Orally BID PRN ankle/foot pain for 30 days 06/28/2022 ActiveStart: 64-52-2387ttme 1 tablet by mouth every six hours as needed for paintramadol (ULTRAM) 50 MG tablet Take 1 Tablet by mouth every 6 hours as needed for Pain. 50 Tablet Active traMADol HCl ActiveVitamin B Complex (1 source)Vitamin B Complex ActiveVitamin D3 (1 source)Vitamin D3 Activezinc gluconate 77 mg oral lozenge (13 sources)Zinc 10 MG lozenge Zinc Activezonisamide 100 mg oral capsule (20 sources)Anti-epileptic AgentStart: 08-83-0634bstk 1 capsule by mouth in the morningzonisamide (Zonegran) 100 MG capsule Take 100 mg by mouth in the morning and 100 mg before bedtime.09/10/2023 ActiveStart: 05-09-2023 End: 58-89-5370usea 1 capsule by mouth once daily Completed/Discontinued Medications MedicationDrug Class(es)DatesSig (Normalized)Sig (Original)azithromycin 500 mg oral tablet (4 sources)Macrolide AntimicrobialStart: 05-09-2023 End: 38-26-0933jmsz 1 tablet by mouth once dailyAzithromycin 500 mg tablet Discontinued 500 MG PO daily 5 5 0 May 08, 2023 11:00pm February 20, 2024 1:12pmStart: 93-88-6729Ymoabjxydxfn 250 MG 2 tablets on the first day, then 1 tablet daily for 4 days Orally Once a day for 5 day(s) Jan, Active DULoxetine 30 mg delayed release oral capsule (13 sources)Serotonin and Norepinephrine Reuptake InhibitorStart: 05-08-2023 End: 99-75-7838info 1 capsule by mouth once dailyDuloxetine 30 mg capsule,delayed release(DR/EC) Discontinued 30 MG PO Daily May 08, 2023 11:00pm February 20, 2024 1:13pmethinyl estradiol 0.03 mg / norethindrone acetate 1.5 mg oral tablet (8 sources)EstrogenStart: 02-14-2023 End: 78-91-2013wpnv 1 tablet by mouth once dailyNorethindrone Ac-Eth Estradiol (June.07/19 (21)) 1.5-30 mg-mcg tablet Discontinued 1 TAB PO DailyMay 08, 2023 11:00pm February 20, 2024 1:13pmmeclizine hydrochloride 25 mg oral tablet (18 sources)AntiemeticStart: 05-09-2023 End: 42-97-1019zczy 1 tablet by mouth once daily as neededMeclizine 25 mg tablet Discontinued 25 MG PO Daily as needed May 08, 2023 11:00pm February 20, 2024 1:13pmtake 1 tablet by mouth three times daily as neededmeclizine (Antivert) 25 MG tablet Take 25 mg by mouth 3 (three) times a day as needed ActiveMeclizine HCl 25 MG Oral for 10 Days Active Problems Active Problems Problem ClassificationProblemDateDocumented DateEpisodic/ChronicAcute bronchitis (1 source)Acute bronchitis, unspecifiedEpisodicAdministrative/social admission (2 sources)Patient encounter status; Translations: [Persons encountering health services in other specified circumstances]39-58-6723QfmtkjuvOxuxji (1 source)Mild intermittent asthma, uncomplicated; Translations: [MILD INTERMIT ASTHMA UNCOMPLICATED]Onset: 76-07-6528FbqwzqyBhoegjbxtjka breast conditions (3 sources)Lump in right breast; Translations: [Unspecified lump in the right breast, unspecified quadrant]Onset: 654834-99-2525AhyeuysqSxaqcolgxmkhml (5 sources)Post-traumatic osteoarthritis, right ankle and foot; Translations: [POST-TRAUM OSTEOARTHRITIS RT ANK FT]Onset: 99-90-0165GisjekmPbrdo acquired deformities (1 source)Contracture, right foot; Translations: [CONTRACTURE RIGHT FOOT]Onset: 10-09-8636MyvhdrkZrxdt connective tissue disease (1 source)Presence of right artificial knee joint; Translations: [PRESENCE RT ARTIFICIAL KNEE JOINT]Onset: 98-87-5261DoxsdswCfzzc connective tissue disease (4 sources)Neuralgia and neuritis, unspecified; Translations: [NEURALGIA AND NEURITIS UNSPECIFIED]Onset: 78-60-5822FuqunqkrThayp connective tissue disease (4 sources)Pain in left foot; Translations: [PAIN IN LEFT FOOT]Onset: 07-12-2022 EpisodicOther connective tissue disease (5 sources)Pain in right foot; Translations: [PAIN IN RIGHT FOOT]Onset: 42-33-5913YipqccmcVzojl injuries and conditions due to external causes (5 sources)Injury of nerve of lower extremity; Translations: [Injury of other nerves at lower leg level, rightleg, initial encounter]17-76-9334HhclimseJldld lower respiratory disease (2 sources)Cough; Translations: [Acute cough]08-34-6562DwmgfjviHybvc lower respiratory disease (3 sources)Cough; Translations: [Cough]81-23-2007RnhgedpkLzbes nervous system disorders (1 source)Other chronic pain; Translations: [OTHER CHRONIC PAIN]Onset: 75-42-2909YdajmwcCyeyk non-traumatic joint disorders (1 source)Pain in left wristEpisodicOther non-traumatic joint disorders (5 sources)Pain in right ankle and joints of right foot; Translations: [PAIN IN RIGHT ANKLE]Onset: 54-42-2600EpmumlawAdzmy nutritional; endocrine; and metabolic disorders (2 sources)Metabolic syndrome X; Translations: [Metabolic syndrome]09-30-2024 ChronicOther nutritional; endocrine; and metabolic disorders (2 sources)Weight increased; Translations: [Abnormal weight gain]09-30-2024 EpisodicOther screening for suspected conditions (not mental disorders or infectious disease) (5 sources)Encounter for screening for malignant neoplasm of cervix; Translations: [Other abnormal and inconclusive findings on diagnostic imaging of breast]Onset: 56-87-6103CwpfzshuHcaqi upper respiratory disease (1 source)Allergic rhinitis due to pollen; Translations: [ALLERGIC RHINITIS DUE TO POLLEN]Onset: 11-03-2742XbcyamhPpzth upper respiratory infections (8 sources)Acute pansinusitis, unspecified; Translations: [Acute pharyngitis, unspecified]EpisodicResidual codes; unclassified (4 sources)Family history of breast cancer; Translations: [Family history of malignant neoplasm of breast]41-14-3835OusytxleGgqdxxuy codes; unclassified (2 sources)Family history of malignant neoplasm of breast; Translations: [Family history of malignant neoplasmof breast]Onset: 20-79-9429Cludojrl Past or Other Problems Problem ClassificationProblemDateDocumented DateEpisodic/ChronicE Codes: Fall (1 source)Fall in (into) filled bathtub causing other injury, initial encounter; Translations: [FALL FILLED BATHTUB OTH INJ INITIAL]Onset: 04-41-4956Mpycxybx Fracture of lower limb (9 sources)Fracture of ankle; Translations: [Other fracture of right lower leg, initial encounter for closed fracture]Onset: 141159-59-6312Bxsbrnwy Fracture of upper limb (6 sources)Closed fracture of distal end of radius; Translations: [Other fractures of lower end of unspecifiedradius, initial encounter for closed fracture]Onset: 07-14-2011 Resolved: 493145-57-1559ZhbepekzAkuaiedavgjzj and screening for infectious disease (1 source)Encounter for screening for human papillomavirus (HPV); Translations: [ENC SCREENING HUMAN PAPILLOMAVIRUS]Onset: 28-71-9338HexklyogSndwu connective tissue disease (1 source)Pain in right lower leg; Translations: [PAIN IN RIGHT LOWER LEG]Onset: 61-15-3321IedqxjnxJpnxx non-traumatic joint disorders (3 sources)Pain in left knee; Translations: [PAIN IN LEFT KNEE]Onset: 10-28-2021 EpisodicSprains and strains (2 sources)Sprain of unspecified site of left knee, initial encounter; Translations: [Unspecified sprain of left elbow, initial encounter]Onset: 14-78-8484HydvtenyTjcwyinbsbh injury; contusion (2 sources)Contusion of left wrist, initial encounter; Translations: [Contusion of right knee, initial encounter]Onset: 82-43-8537XvuiuqckZpubbclywrsh (2 sources)Cough R05.9 Results Test NameValueInterpretationReference RangeFacilityMM diagnostic mammo RT w/CAD on 41-50-6891OY diagnostic mammo RT w/CADWYAND[facility] Main [place] [id number] Ultrasound Report Signed Patient: Ethan Brady MR#: [id number] : 1985 Acct:[id number] Age/Sex: 39 / F ADM Date: 12/20/24 Loc: [place] Room: Type: REG CLI Attending Dr: Toshia Reinoso PA-C Ordering Provider: Toshia MAKI Date of Service: 12/20/24 MM/MM diagnostic mammo RT w/CAD: R92.8 ([id number]) US/US breast RT limited: R92.8 Copies to: Toshia MAKI BILATERAL Screening Full Field digital mammogram with 3-D imaging. Spot compression with mediolateral view COMPARISON: 12/05/2024 HISTORY: Follow-up of right breast nodule. Family history of breast cancer BREAST COMPOSITION: Scattered fibroglandular densities of the breast parenchyma identified BREAST CALCIFICATIONS: Benign calcifications present. VASCULAR [...] patient. Patient opted for ultrasound- guided biopsy. RESULT CODE: 4 Suspicious Abnormality - Biopsy Considered DENSITY CODE: 2 (approximately 25-50% glandular) There are scattered areas of fibroglandular density. FOLLOW UP: BIO THE FALSE-NEGATIVE RATE OF MAMMOGRAPHY IS APPROXIMATELY 10%. IMAGING OF A PALPABLE ABNORMALITY MUST BE BASED ON CLINICAL GROUNDS. PATIENT WAS ENTERED INTO A REMINDER SYSTEM WITH A TARGET DUE DATE FOR THE NEXT MAMMOGRAM. Impression dictated by: Pablo Watts M.D. 12/20/2024 3:23 PM Dictation Location: [facility] Tech: Sandra Huizar Transcribed By: JERSON 12/20/24 1523 Dictated By: Pablo Watts DO 12/20/24 1519 Signed By: 12/20/24 [facility] Physician GroupBI MAMMO BILATERAL SCREENING TOMOSYNTHESISon 76-20-3327UF MAMMO BILATERAL SCREENING TOMOSYNTHESISInterpreted By: Gavin Lomas, STUDY: BI MAMMO BILATERAL SCREENING TOMOSYNTHESIS; 12/05/2024 2:49 pm ACCESSION NUMBER(S): [id number] ORDERING CLINICIAN: INTERFACE UNSPECIFIELDPROVIDER INDICATION: Screening. ,Z80.3 [...] information regarding high risk consultation, please call [phone]. For any future breast imaging appointments, please call [phone]). MACRO: None Signed by: Gavin Lomas 12/08/2024 5:27 AM Dictation workstation: [id number]and Clinic Hillcrest HospitalIGP,APTIMA HPV,AGE GDLNon 62-74-2268KZX GDLN ACOG TESTINGNote.NOMS HealthcareComment on above:TESTS RESULT FLAG UNITS REF RANGE LAB Clinician Provided Cytology Information Source.............Cervix;Endocervix No. of containers..01 ThinPrep Vial Age Algo ACOG Jazmín... 30-65 FLAG LEGEND: L-Low Normal,H-High Normal,LL-Alert Low,HH-Alert High <-Panic Low,>-Panic High,A-Abnormal,AA-Critical Abnormal Performed at: 01 = [facility] [address] Rachana Vines MD, HPV APTIMANegativeNegativeNOMS HealthcareComment on above:This nucleic acid amplification test detects fourteen high- risk HPV types (16,18,31,33,35,39,45,51,52,56,58,59,66,68) without differentiation. Performed at: = - [facility] [id number] Drop Hammer Setter Up: Rachana Vines MD, Phone: [phone] Performed at: [facility] - [facility] [address] [place] [id number] Drop Hammer Setter Up: Luis F Almeida MD, Phone: [phone] IGP, APTIMA HPV, RFX 16/18,45Note.NOMS HealthcareComment on above:TESTS RESULT FLAG UNITS REF RANGE LAB DIAGNOSIS: 02 NEGATIVE FOR INTRAEPITHELIAL LESION OR MALIGNANCY. Specimen adequacy: 02 Satisfactory for evaluation. Endocervical and/or squamous metaplastic cells (endocervical component) are present. Performed by: Jewel Crocker, Coil Cutter (ASC) . 02 Note: Note 03 The [...] High,A-Abnormal,AA-Critical Abnormal Performed at: 02 [facility] [address] [place] [phone] Luis F Almeida MD, 03 WB [facility] [address] [address] Rachana Vines MD, BRUSH-SPATULA CERVIX ENDOCERVIX CLINISYNCNOMS HealthcareUS PELVIS W/ TRANSVAGINALon 85-54-2389U[address] [address] Ultrasound Report Signed Patient: Ethan Brady MR#: [id number] : 1985 Acct:[id number] Age/Sex: 37 / F ADM Date: 06/27/23 Loc: [place] Attending Dr: Toshia Reinoso Ordering Physician: Toshia Reinoso Date of Service: 06/27/23 Procedure(s): US pelvis w/ transvaginal Accession Number(s): [id number] cc: Toshia Reinoso [address] [address] Patient Name: ETHAN BRADY MRN: [id number] date: 1985 Sex: F Assigned Patient Location: US Current Patient Location: [place] Accession/Order Number: [id number] Exam Date: 06/27/2023 10:18 Report Date: 06/27/2023 [...] 2. Prior right oophorectomy. Electronically authenticated by: JAVIER BAILEY Date: 06/27/2023 11:01 Dictated By: Javier Bailey M.D. Signed By: 06/27/23 1104 DD/ 1101 TD/TT: Cigarette Making Examiner:TBHRadiology, Radiologist, - 06/27/2023 [place] [address] Ultrasound Report Signed Patient: Ethan Brady MR#: [id number] : 1985 Acct:[id number] Age/Sex: 37 / F ADM Date: 06/27/23 Loc: US Attending Dr: Toshia Reinoso Ordering Physician: Toshai Reinoso Date of Service: 06/27/23 Procedure(s): US pelvis w/ transvaginal Accession Number(s): [id number] cc: Toshia Reinoso [address] [place] [id number] Patient Name: ETHAN BRADY MRN: [id number] date: 1985 Sex: F Assigned Patient Location: [place] Current Patient Location: [place] Accession/Order Number: [id number] Exam Date: 06/27/2023 10:18 Report Date: 06/27/2023 [...] 2. Prior right oophorectomy. Electronically authenticated by: JAVIER BAILEY Date: 06/27/2023 11:01 Dictated By: Javier Bailey M.D. Signed By: 06/27/23 1104 DD/ 1101 TD/TT: Cigarette Making Examiner: SHITAL HealthcareRadiology Study observation (narrative)NOMS HealthcareUS PELVIS W/ TRANSVAGINALOrdered By: Radiologist Radiology on 33-22-4122JTOM Healthcare Work Phone: No Panel InformationOrdered By: Dion Ellison on 73-77-7065Kiwlp Strep (POC)[facility]eterans Health AdministrationCOVID/FLU/RSV RT-PCR on 88-10-6866LOLD-CoV-2 (COVID-19) RNA TANI+probe Ql (Unsp spec)NegativeNort OneSource Virtual Other COVID/FLU/RSV RT-PCRPositiveNorth [employer] Other COVID/FLU/RSV RT-PCRnegagtiveNorth Saint John'S Health System [employer] Other COVID/FLU/RSV RT-PCRNegativeArcadia [employer] Other Quick Strepon 02-05-2022. pyogenes Org specific cx Ql (Throat)NegativeArcadia [employer] Other Qutxd StrepArcadia [employer] Other pap ACOG PANEL 2: 30 to 65on 02-03-2022..NormalThe [facility] Medical CenterComment on above:Result Comment: Performed at: WBPerformed By: #### [id number] #### [facility] [address] [place] [address] Dr. Tha Villanueva Gdln ACOG Vsbuulr17-63WmfhyqQgdSamaritan North Health CenterComment on above:Performed By: #### [id number] #### [facility] [address] [place] [address] Dr. Tha CowanDIAGNOSIS:CommentSamaritan North Health CenterCommunson healthcare manistee hospital on above: Result Comment: NEGATIVE FOR INTRAEPITHELIAL LESION OR MALIGNANCY. Performed at: WBPerformed By: #### [id number] #### [facility] [address] [place] [address] Dr. Tha Ruiz AptimaNegativeNormalNegativeSelect Medical Ohiohealth Rehabilitation Hospital - DublinCommunson healthcare manistee hospital on above:Result Comment: This nucleic acid amplification test detects fourteen high-risk HPV types (16,18,31,33,35,39,45,51,52,56,58,59,66,68) without differentiation. Performed at: =GPerformed By: #### [id number] #### [facility] [address] [place] [address] Dr. Tha Ruiz Genotype ReflexCommentSamaritan North Health CenterComment on above:Result Comment: Criteria not met, HPV Genotype not performed. Performed at: WBPerformed By: #### [id number] #### [facility] [address] [place] [address] Dr. Tha CowanMethodology:CommentSt. Charles Hospital on above: Result Comment: This liquid based ThinPrep(R) pap test was screened with the use of an image guided system. Performed at: WBPerformed By: #### [id number] #### [facility] [address] [place] [address] Dr. Tha CowanNote:CommentSt. Charles Hospital on above:Result Comment: The Pap smear is a screening test designed to aid in the detection of premalignant and malignant conditions of the uterine cervix. It is not a diagnostic procedure and should not be used as the sole means of detecting cervical cancer. Both false-positive and false-negative reports do occur. . Performed at: WBPerformed By: #### [id number] #### [facility] [address] [place] [address] Dr. Tha CowanPerformed by:CommentSt. Charles Hospital on above: Result Comment: Mirian Booker Coil Cutter (ASCP) Performed at: WBPerformed By: #### [id number] #### [facility] [address] [place] [address] Dr. Tha CowanSpecimen adequacy:CommentSt. Charles Hospital on above:Result Comment: Satisfactory for evaluation. Endocervical and/or squamous metaplastic cells (endocervical component) are present. Performed at: WBPerformed By: #### [id number] #### [facility] [address] [place] [address] Dr. Tha Khalil Quick Testingon 64-10-0939AeioccRnjgninkAuaql [employer] Other XR ELBOW LT MIN 3 VIEWSon 11-36-5582HB ELBOW LT MIN 3 VIEWSEXAM: XR ELBOW LT MIN 3 VIEWS HISTORY: Traumatic injury COMPARISON: None. TECHNIQUE: 3 views left elbow FINDINGS: No acute displaced fracture or dislocation is evident. No joint effusion. Soft tissues are unremarkable. IMPRESSION: Negative radiographic evaluation for fracture. Electronically authenticated by: NIDIA PIPER Date: 2021-10-28 14:44[facility]-Fairhillvider Letteron 96-23-0160Vlkgrfnz Letter August 28, 2020 Dear Ethan, We have been trying to reach you with no success. It is important that you return our call regarding your appointment upon receiving this letter. Thank you for your prompt attention to this matter. Sincerely, [employer] [address] [place] [address] IwwkyrKnkkrhTriHealth Good Samaritan HospitalAmbulatory Clinical Summary on 44-19-5154Aegckpkqby Clinical Summary {g3-s3-[id number]-[id number]-[id number]-2k-93-[id number]-68-f5-[id number]}CD:[id number] Good Samaritan HospitalGynecology Office/Clinic Noteon 32-09-2535Qaareiscjz Office/Clinic NoteChief Complaint Annual, Having pain in left Side. States she had Ultrasound at [facility] and was neg. Obstetric History History (0,0,0,1) # 1 Baby 1 Outcome Date: 03/10/2012 Outcome: Live Outcome or Result: Vaginal Gender: Female Gest Age: 38 weeks 2 days Wt: 3232 g Hospital: [facility] Labor: 7 hr 20 min Child's [...] annual exam today. She uses Loestrin Fe .07/19 for contraception. Periods are normal on the pills. She has pain in her left side and had pelvic US in [place] recently and states it was normal. Painhas gotten worse over past few months but [...] normal, no masses, no nipple discharge, no erythema/warmth/tenderness, axillae normal. Respiratory: no respiratory distress. Abdomen: [...] adnexal tenderness. Assessment/Plan 1. 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 Ordered: Periodic Comp Preventive Med 65+ Yrs Est Orders: ethinyl estradiol-norethindrone, 1 tab(s), Oral, Daily, 84 tab(s), Refill(s) 4, [id number],170.2, cm, 11/15/19 9:21:00 EDT, Height/Length Dosing, 82.4, kg, 11/15/19 9:21:00 EDT, Weight Dosing Follow-up With When Contact Information Grecia PEREZ In [address] [place] [address]- Additional Instructions: Problem List/Past Medical History Ongoing Hypertriglyceridemia LLQ pain Oral contraceptive use Overweight Historical Procedure/Surgical History Ankle (02/20/2018), Total ankle replacement ( (more content not included)... [facility] Good Samaritan HospitalComment on above:Result Comment: Electronically Signed By: Grecia PEREZ\.br\Date and Time Signed: 11/15/19 09:40 EDT Patient Educationon 66-54-4961Gbskfrr EducationFamily Medicine Preventive Care for Adults, Female A [...] exam and preventive care every 6 months. [place] your teeth twice a day and floss [...] fruits, whole grains, low-fat dairy products, and leanprotein foods contain the nutrients you need without [...] maintain a healthy weight.?For adults 20 years andolder: ? A BMI below 18.5 is considered [...] do not exceed 1 drink per day. Onedrink is considered to be 12 ounces (355 [...] should have a CBE every year. Starting atage 40, women should consider having a mammography (breast X-ray test ) every year. Women who have a family history of breast cancer should talk to their caregiver about genetic screening. Women at ahigh risk of breast cancer should talk to [...] ? Between ages 21 (more content not included)...NormalMadison Health Vital Signs Date TimeVital SignValuePerforming CcwmfnxikWlaypkns15-52-4420 14:27-0400Body rkzanl722.[address] [place], [place] [address]10-16-2025 14:27-0400Body mass index (BMI) [Ratio]25.84 kg/m2Ely [address] [place] [address] 12-05-2024 14:27-0400Body ocszqm70.[address] [place] [address] 09-30-2024 13:25-0400Body utwahw923.7 cmAerick Reinoso PA Work Phone: [phone] [place], [place] [address]Invwcykhbx25-17-7754 13:25-0400Body mass index (BMI) [Ratio]26.3 kg/m2Amy Mirza PA Work Phone: [phone] [place], [place] [address]Ipyhwjebpq02-06-2465 13:25-0400Body ewwhqv95.47 kgAmy Mirza PA Work Phone: [phone]-[facility] HospitalGold[facility] Memorial HospitalUocpsfzijv52-85-5783 13:25-0400Diastolic blood ywnabwpp69 mm[Hg]Toshia Mirza PA Work Phone: [phone] [place], [place] [address]Nnbmahpgor21-94-9034 13:25-0400Systolic blood yygjljgv635 mm[Hg]Toshia Mirza PA Work Phone: [place] [facility] HospitalNuntjiyeep61-85-0158 13:29-0400Body fnhguz208 cm Toshia [place] PA Work Phone: [phone]-[facility]3[place] [facility] HospitalNbvbfciosf30-16-8161 13:29-0400Body mass index (BMI) [Ratio]30.89 kg/m2Amy Mirza PA Work Phone: [place] [facility] HospitalZrxpsfngpn51-17-1301 13:29-0400Body vzgifr55.11 kgAmy [place] PA Work Phone: [place] [facility] HospitalYuvwzkhlzg77-25-3404 13:29-0400Diastolic blood ekvrsrmr63 mm[Hg]Toshia [place] PA Work Phone: [phone]-[facility] [facility] HospitalVnffvlqhow36-12-8533 13:29-0400Systolic blood idvzqzwl196 mm[Hg]Toshia Mirza PA Work Phone: [place] [facility] HospitalAkzehlihol51-20-5404 13:07-0500Body etahbu408.1 cmCowen Del Valle DO Work Phone: [place] [facility] HospitalVzeqggxtbk52-78-1185 13:07-0500Body mass index (BMI) [Ratio]28.29 kg/g4Lyrlz Eligio DO Work Phone: [place] [facility] HospitalMzcqjqbwap30-30-8623 13:07-0500Body kjetnb38.11 kgCoreluis Thackero DO Work Phone: [place] [facility] HospitalWrgynjkuhh73-61-4788 13:07-0500Diastolic blood mm[Hg]Emiliano Thackero DO Work Phone: [place] [facility] HospitalTguhqvmjqo18-92-3462 13:07-0500Systolic blood pdhujtlm026 mm[Hg]Emilianoluis Thackero [employer] Work Phone: [facility] HospitalSizqbrnigo88-86-1215 13:59-0400Body mass index (BMI) [Ratio]25.63 kg/m2[facility]08-07-2024 13:59-0400Body qmhdni04.85 kgOz[facility] Hospital08-07-2024 13:59-0400Diastolic blood osshwiwn33 mm[Hg][facility]08-07-2024 13:59-0400Systolic blood mrpvvszy635 mm[Hg][facility]03-19-2024 15:34-0400Body height 172.72 [facility]03-19-2024 15:34-0400Body mass index (BMI) [Ratio]25.8 kg/w3DviakuwnnVeterans Health Administration03-19-2024 15:34-0400 Body weftpm80.11 kgVeterans Health Administration03-19-2024 15:34-0400 Diastolic blood mm[Hg][facility]03-19-2024 15:34-0400Systolic blood otqkjdan013 mm[Hg][facility] 02-05-2022 13:15-0500Body dvetak657.18 cmTcaty Ronaldo Other [facility] [employer] Other 12-17-2022 13:15-0500Body xnczemplqka04.2 [degF]Anthony Ronaldo Other [employer] Other 12-17-2022 13:15-0500Diastolic blood bwqadpvo96 mm[Hg] Anthony Higgins Other [employer] Other 12-17-2022 13:15-0500Respiratory rate18 /minThomas Ronaldo Other [employer] Other 12-17-2022 13:15-5734WhU2% (BldA) [Mass fraction]98 % Anthony Higgins Other [employer] Other 12-17-2022 13:15-0500Systolic blood cyrcswrx771 mm[Hg] Anthony Higgins Other [employer] Other 11-07-2022 18:10-0500Body .18 cmThomas Ronaldo Other [employer] Other 11-07-2022 18:10-0500Body mass index (BMI) [Ratio]24.9 kg/v4Xdnchh Ronaldo Other [employer] Other 11-07-2022 18:10-0500Body jwhrgyfkpax19.5 [degF]Anthony Higgins Other [employer] Other 11-07-2022 18:10-0500Body hgmcuj31.12 kgThomas Ronaldo Other [employer] Other 11-07-2022 18:10-0500Diastolic blood dhiifmlg08 mm[Hg] Anthony Higgins Other [employer] Other 11-07-2022 18:10-0500Respiratory rate18 /minThomas Ronaldo Other [employer]Patient[employer] Other 11-07-2022 18:10-4637WjX0% (BldA) [Mass fraction]98 % Anthony Higgins Other [facility] [employer] Other 11-07-2022 18:10-0500Systolic blood vvbixbhr706 mm[Hg] Anthony Higgins Other noPatientSafe Solutions [employer] Other Encounters Encounter DateEncounter TypeCare ProviderFacilityStart: 12-26-2024 End: 14-05-3426Aeuoftn encounter procedureFrjarrett Rendon DO-[facility] Work Phone: Start: 12-26-2024 End: 26-92-4263kbsvqglasfMtqztveArmando Chawla MD Work Phone: [phone]-Cqbrmm for Breast [facility]Start: 12-20-2024 End: 76-70-7052Zckrznh encounter Vonda Reinoso NP-[facility] [facility] Work Phone: Start: 12-20-2024 End: 48-34-1407azxnppbgmoNhfcjybArmando Chawla MD Work Phone: [phone]-Qlrnjs for Breast [facility] HospitalStart: 12-05-2024 End: 35-35-2163Zxaftcofyu hospital visit by physicianElsa BaileyJhzorh7[address] [place], [place] [address]Comment on above:Family history of malignant neoplasm of breastStart: 12-05-2024 End: 91-86-8589hlxctkxjrkXEN L [facility] Start: 09-30-2024 End: 70-58-0736Asxrdm Paco FIGUEROA Work Phone: NOXD [place] OBGYNStart: 09-30-2024 End: 47-14-9134Okfyftcornelia FIGUEROA Work Phone: [facility] OBGYNStart: 09-30-2024 End: 77-34-6157Xlfukv outpatient visit 10 minutesAmy Mirza FIGUEROA Work Phone: [facility] OBGYNComment on above:Weight gain; Metabolic syndromeStart: 09-30-2024 End: 81-91-7826hgzrpotjrxQAY RAMEYNot AvailableStart: 09-26-2024 End: 26-51-8158Nocwgg flowsheetToshia FIGUEROA Work Phone: [facility]BGYNStart: 09-26-2024 End: 85-58-0162Ewhryd flowsJackie FIGUEROA Work Phone: [facility] OBGYNStart: 09-26-2024 End: 16-55-9146Htrnmp outpatient visit 15 minutesAmy Mirza FIGUEROA Work Phone: [facility] OBGYNComment on above:Family history of breast cancerStart: 09-26-2024 End: 81-17-8423ivnkvkssdlYSS RAMEYNot AvailableStart: 09-25-2024 End: 34-81-6335fvwuvuxhwqHyynokc A Haynes MD Work Phone: [facility] Work Phone: Start: 09-25-2024 End: 80-74-0372Acyssmr encounter procedureChristopher Sebastián Fong [facility] Work Phone: Start: 02-28-2024 End: 41-45-0566Mowyja flowsheetCorey Eligio DO Work Phone: [facility] BCP OBStart: 02-28-2024 End: 46-35-6419Maiwpp flowsheetCorey Eligio DO Work Phone: [facility] BCP OBStart: 02-28-2024 End: 05-93-7544Osbvjjygv Result EncounterCorey Eligio DO Work Phone: [facility] External Department UnsolicitedStart: 02-28-2024 End: 60-83-1037Xptqrum encounter procedureCorey Eligio DO Work Phone: noms BCP OBComment on above:Well woman exam with routine gynecological exam; Acute coughStart: 02-28-2024 End: 45-12-7296ycyiwoieyjTKTFD FAZIONot AvailableStart: 09-27-2023 End: 35-44-4990Lawlyg outpatient visit 5 minutesNoms Bcp Ob Eligio NurseNOMS BCP OBComment on above:Encounter for weight managementStart: 08-13-2023 End: 31-72-0362Mdfrls encounterMetroHealthStart: 06-27-2023 End: 87-25-1381Xeepobywl Result EncounterTsohia FIGUEROA Work Phone: noms External Department UnsolicitedStart: 06-27-2023 End: 05-87-9205Ydkrackkx Result EncounterToshia FIGUEROA Work Phone: noms External Department UnsolicitedStart: 05-09-2023 End: 60-30-5525tsjluichmrCssybfcxfBlanchard [facility] Work Phone: Start: 05-09-2023 End: 89-15-6181Tswbbmp encounter procedureC[facility] Vishnu Work Phone: Start: 04-51-2838Iddvlv encounterMETROHEALTH SYSTEM Work Phone: Start: 07-19-2022 End: 10-55-1225bhptnptjmdDYAXGRVZYRLH LAKSHMIPATHY .Facility:M5Jzkst: 07-12-2022 End: 99-65-3510vtkayfwdpaKBQBB D [facility]OSPITALFacility:O0Mlika: 06-28-2022 End: 32-63-9707qjtcoruihmVJMQQIFB CULLENFacility:M4Ncqgv: 29-03-5568Xofunm outpatient new 30 minutesJennifer RadhaFPG [facility] OrthopedicsStart: 06-23-2022 End: 77-12-8137jvzgmhbeqjNJ Heather A Haynes Work Phone: [facility] Work Phone: Start: 06-23-2022 End: 58-74-3055Xjvuhtc encounter procedureMD Juárez Cammy Work Phone: [facility] Start: 06-23-2022 End: 73-15-6731wgmyisfeftLBLERMAWODDI LAKSHMIPATHY .Facility:F7Bxsch: 05-26-2022 End: 36-84-6763adlcltaungKP MARQUITA A HAYNESFacility:O8Ezjby: 19-22-3393Yddnjm encounterMetroHealthStart: 04-27-2022 End: 33-62-6531boqyoexqmyPS MARQUITA A HAYNESFacility:D4Ppdnf: 02-05-2022 End: 81-34-2429ktisjpkxkrDkasda [place] Other noExpediciones.mx Other Start: 12-26-0221Pzsjrs outpatient visit 15 minutes [facility] [address] RoadStart: 01-25-2022 End: 59-86-6092yymmiampqhXP MARQUITA A HAYNESFacility:H1Rtdqv: 12-27-2021 End: 42-31-1271zdztnukugpHpcbky [place] Other [employer] Other Start: 56-81-7092Eulewx outpatient visit 15 minutes [facility] [address] RoadStart: 10-28-2021 End: 58-81-8123jyhlmsfqhhQR MARQUITA A HAYNESFacility:H8Opmtr: 10-27-2021 End: 01-11-1825ihajkjpxzlOSQEI D HIGHLANDERFacility:R0Upwmx: 10-01-2021 End: 64-56-3957bcuecsyuzmKYPOJ MEKHI .Facility:G1Ihgee: 08-29-2016 End: 72-23-8484nclzzboavxXWLQHRU PROVIDERFacility:[facility] Procedures DateProcedureProcedure DetailPerforming ClinicianStart: 69-24-7427Zjgonqcrglg of right breastHeather Cammy HERRERA Work Phone: start: 32-02-9570Ffveslrimiunohl of right breast Marquita Chawla MD Work Phone: start: 68-81-9804SSE,APTIMA HPV,AGE GDLNCorey Eligio DO Work Phone: Start: 04-58-7397OJ PELVIS W/ TRANSVAGINALAmy Mirza FIGUEROA Work Phone: Start: 41-86-6601Bqiqz Strep (POC)Start: 06-23-2022 Plain X-ray of left wristMD Marquita Cammy Work Phone: Plan of Treatment DateCare ActivityDetailAuthorStart: 24-18-5586Fkcgtqpu (RZV) Vaccine (1 of 2) Shingles (RZV) Vaccine (1 of 2)[facility]roHealthStart: 67-18-0170Cjfpxp Vaccines (1 of 2)Zoster Vaccines (1 of 2)[facility]Start: 03-04-2025 End: 68-89-6689Fogivwr encounter procedureNOMS BCP OBStart: 23-69-6042NOZVV-19 Vaccine ( season)COVID-19 Vaccine ( season)[facility] ShawStart: 09-30-2024 End: 20-43-9744Vqbiole encounter procedureNOMS Autumn OBGYNComment on above: ArrivedStart: 09-26-2024 End: 39-02-5052UB Breast - bilateral ScreeningBilateral screening mammogram Imaging Routine Family history of breast cancer Expected: 09/26/2024 ( Approximate), Expires: 11/26/2025[facility] Work Phone: comment on above:Expected: 09/26/2024 (Approximate), Expires: 11/26/2025Start: 09-26-2024 End: 79-93-4676Wovptbw encounter iybdkdbij88/07/2025 1:20 PM EDT Office Visit [facility] [address] [place] [address] [place] [address] Toshia Reinoso PA [address] [place] [address] [place] [address] ArrivedNOMS Leyva OBGYNComment on above:ArrivedStart: 32-00-1463Bflyofrtd vaccinationInfluenza Vaccine (#1) [facility]Start: 02-28-2024 End: 12-04-5349Drqwpjq encounter procedureNOMS BCP OBComment on above:Arrived Start: 16-20-1726AJREW-19 Vaccine ( season)COVID-19 Vaccine ( season)[facility]roHealthStart: 98-87-0419Ytgsjmfxa vaccinationInfluenza Vaccine (#1)[facility] SYSTEMStart: 32-99-2573Skzkmxcip vaccinationInfluenza Vaccine (#1)MetroHealthStart: 85-20-9138Htjmng wellness visitAnnual Wellness Visit (G0438)MetroHealthStart: 59-78-1163XMS Vaccine (optional start 27-45 years)HPV Vaccine (optional start 27-45 years)MetroHealthStart: 77-72-5743DED Vaccines (1 - 3-dose standard series)HPV Vaccines (1 - 3-dose standard series) [facility] ShawStart: 98-30-0883DXfE/Tdap/Td Vaccines (1 - Tdap)DTaP/Tdap/Td Vaccines (1 - Tdap)[facility] ShawStart: 29-38-3906Aoqmgtxaj for malignant neoplasm of cervixMetroHealthStart: 2004 Hepatitis A (HAV) Vaccine (optional start 19+ years)Hepatitis A (HAV) Vaccine (optional start 19+ years)MetroHealthStart: 22-58-2982Auywyvqds B vaccination Hepatitis B (HBV) Vaccine (1 of 3 - 19+ 3-dose series)MetroHealthStart: 51-94-8881Viuihljsq B Vaccines (1 of 3 - 19+ 3-dose series)Hepatitis B Vaccines (1 of 3 - 19+ 3-dose series)[facility] ShawStart: 08-02-2003 Diabetes mellitus screeningDiabetes ScreeningUnLake County Memorial Hospital - West Start: 99-60-1747Sfftxpoqk C screeningMetroHealthStart: 63-80-5579Ywuduyp + diphtheria + acellular pertussis vaccine (product)Tdap BoosterMetroHealthStart: 88-39-8366BRK screeningHIV TestMetroHealthStart: 65-11-5925ZRVHQ-19 Vaccine (#1) COVID-19 Vaccine (#1)MetroHealthStart: 55-88-6535Eryull wellness visitWelcome to Medicare VisitUnLake County Memorial Hospital - WestStart: 13-32-6849Yihqthcgc B vaccinationHepatitis B (HBV) Vaccine (1 of 3 - 3-dose series)[facility]OPREMI[facility] Start: 77-87-6303ZNO screeningHIV ScreeningSelect Medical [facility] Start: 76-87-1970Acsck panelLipid PanelSelect Medical [facility] Rehabilitation Hospital, Edwin ShawStart: 24-46-8973Daksyolal for malignant neoplasm of breastMammography shared decision making (35 through 39 years)[facility]roWvumedicine [facility] Community HospitalCytology Cervical or vaginal smear or scraping studyPap Smear Pathology and Cytology Routine Well woman exam with routine gynecological exam Ordered: 02/28/2024[facility] [employer] Work Phone: comment on above:Ordered: 02/28/2024 End: 13-96-9822BYQ Breast - [facility] Work Phone: Comment on above:Once for 1 Occurrences starting 12/05/2024 until 12/05/2024Human papilloma virus DNA [Presence] in Unspecified specimen by Probe with amplificationHPV DNA probe, amplified Microbiology Routine Well woman exam with routine gynecological exam Ordered: 02/28/2024[facility] HospitalComment on above:Ordered: 02/28/2024 Payers DatePayer CategoryPayerPolicy [id number]-pay2021Medicare (Managed Care)[id number] [id number] MEDICAID [id number] 2015-Present [address] [place] [address] [id number] [id number] [id number] [id number] 2.16.840.1.074716.3.57[id number] 2.16.840.1.888711.3.57[id number] 2.16840.1.438458.3.57[id number] 2.16840.1.307267.3.57[id number] 2.16840.1.675447.3.57[id number] 2.16.840.1.149382.3.57[id number] 2.16.840.1.402612.3.57[id number] 2.16840.1.071892.3.57[id number] 2.16.840.1.369155.3.57[id number] 2.16840.1.473918.3.57[id number] 2.16.840.1.078121.3.57[id number] 2.16.840.1.905687.3.57[id number] 2.840.1.073861.3.57[id number] 2.16840.1.200107.3.57[id number] 2.840.1.293194.3.579.2.1246 [id number] 1960Medicare [id number] 2.1[id number] 2.0.1.191610.19Unknown [id number] 2.0.1.6[id number] 2.0.1.604033.3.579.2.531 Social History DateTypeDetailFacilityUnknown if ever smokedArcadia [employer] Other Start: 07-09-2018 End: 14-70-9588Jmz Assigned At [facility] [employer] Other Start: 07-10-2011 End: 97-79-5889Zvtggoi smoking status NHISNever smoked tobaccoMetroHealth Work Phone: Start: 51-03-5596Nzclfhm use and exposureSmokeless tobacco non-userMetroHealthStart: 07-10-2021 End: 62-20-5539Bdnmkwd intakeCurrent drinker of alcohol (finding)[facility] Start: 07-10-2021 End: 47-60-0755Tlxckkl intakeMetroHealthStart: 80-35-2629Qieonah Comment4 beers per weekend outing, once a weekMetroHealthStart: 02-82-1805Hct Assigned At Not on fileMetroHealthStart: 07-84-3706Dla Assigned At BirthFeCleveland ClinicHow often to you have a drink containing alcohol?Never [facility] HealthcareHow many standard drinks containing alcohol do you have on a typical day?1 or 2NOMS HealthcareHow often do you have 6 or more drinks on 1 occasion?MonthlyNOMS HealthcareTobacco smoking status NHISUnknown if ever smoked [facility] Work Phone: Start: 92-64-3233OnoImbefy (finding)Centervilletart: 31-95-6170OeyXuyxiiENRA Healthcare Functional Status TjzhNepplgjlkqDkzienElhfzjns18-68-6572Xvbdqjfeau statusUnLake County Memorial Hospital - West10-16-2025[facility] Work Phone: Clinical Notes 10-27-2021 to 12-26-2024 Note Date & VenoNqmqCzzxqxti66-14-2912 Evaluation note* Diagnosis Onset Date Resolution Status Admit Date Breast mass, right acuteNovember 2024 12:22pm [facility] Work Phone: 1(569) 756-734210-31-2025 Radiology Diagnostic study noteWYANDOT [place] [address] Ultrasound Report Signed Patient: Ethan Brady#: [id number] : 1985 Acct:[id number] Age/Sex: 39 / F ADM Date: 5 Loc: [place] Room: Type: [facility] Attending Dr: Toshia Reinoso PA-C Ordering Provider: Toshia MAKI Date of Service: 12/20/24 MM/MM diagnostic mammo RT w/CAD: R92.8 ([id number]) US/US breast RT limited: R92.8 Copies to: Toshia MAKI~ BILATERAL Screening Full Field digital mammogram with 3-D imaging. Spot compression with mediolateral view COMPARISON: 12/05/2024 HISTORY: Follow-up of right breast nodule. Family history of breast cancer BREAST COMPOSITION: Scattered fibroglandular densities of the breast parenchyma identified BREAST CALCIFICATIONS: Benign calcifications present. VASCULAR CALCIFICATIONS: None ARCHITECTURAL DISTORTION: None BREAST NODULE: The right breast nodule redemonstrated. AXILLARY LYMPH NODES: Normal POSTSURGICAL CHANGES: None Targeted right breast ultrasound. At the 5:00 position 2 cm from the nipple there is a subcutaneoushomogeneously hypoechoic well-defined nodule measuring 1.3 x 0.7 x 1.1 cm. US/US breast RT limited IMPRESSION: Redemonstration of right breast nodule with concordant finding of oval well-circumscribed homogeneously hyperechoic nodule with targeted ultrasound. Likely represents a fibroadenoma. Options discussed with patient. Patient opted for ultrasound-guided biopsy. RESULT CODE: 4 Suspicious Abnormality - Biopsy Considered DENSITY CODE: 2 (approximately 25-50% glandular) There are scattered areas of fibroglandular density. FOLLOW UP: BIO THE FALSE-NEGATIVE RATE OF MAMMOGRAPHY IS APPROXIMATELY 10%. IMAGING OF A PALPABLE ABNORMALITY MUST BE BASED ON CLINICAL GROUNDS. PATIENT WAS ENTERED INTO A REMINDER SYSTEM WITH A TARGET DUE DATE FOR THE NEXT MAMMOGRAM. Impression dictated by: Pablo Watts M.D. 12/20/2024 3:23 PM Dictation Location: [facility] Tech: Sandra Huizar Transcribed By: JERSON 12/20/24 1523 Dictated By: Pablo Watts DO 12/20/24 1519 Signed By: 12/20/24 1523 [facility]08-11-2025 History of Present illness Narrative * CAROLINA Sanchez - 09/30/2024 1:20 PM EDT Reason for Appointment: Patient ID: Ethan Brady is a 39 y.o. female who presents [...] & Tube Removed WRIST FRACTURE SURGERY Left 2012 metal plate put in REVIEW OF SYSTEMS [...] behalf of: CAROLINA Sanchez documented in this encounterGolden Valley Memorial [id number] History of Present illness Narrative* CAROLINA Sanchez - 09/26/2024 1:20 PM EDT Reason for Appointment: Patient ID: Ethan Brady is a 39 y.o. 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 female who presents [...] nursing note reviewed. Exam conducted with a collar fuser present. Vitals: Estimated body mass index is [...] she is doing well and has complaints. Papwas obtained without difficulty. Orders Placed This Encounter Procedures HPV DNA probe, amplified Follow Up: Patient is to return in one year for annual unless needed otherwise. Documented by Britt Weathers LPN on behalf of: Emiliano Del Valle DO documented in this encounterGolden Valley Memorial [id number] History of Present illness Narrative* Deneen Park LPN - 09/27/2023 1:30 PM EDT Reason for Appointment: Patient ID: Ethan Brady is a 38 y.o. female who presents for Weight Management Patient presents today for a weight management consultation. Patient has been prescribed Adipex andshe is here for her 4th prescription. Today's [...] behalf of CAROLINA Sanchez documented in this encounterGolden Valley Memorial [id number] NotePROCEDURE: XR FOOT LT MIN 3 VIEWS HISTORY: Pain in left [...] remote cortical injury. Electronically authenticated by: JAVIER BAILEY Date: 2022-07-12 14:23[facility]05-10-2023 NotePROCEDURE: XR FOOT LT MIN 3 VIEWS COMPARISON: None. HISTORY: Pain FINDINGS: BONES:No fracture, acute abnormality, or significant arthropathy. SOFT TISSUES:Negative. No visible soft tissue swelling. EFFUSION:None visible. OTHER: Negative. IMPRESSION: No acute radiographic abnormality Electronically authenticated by: TAYLA HANNON Date: 2022-06-29 07:25[facility] [id number] Evaluation note* Encounter Date Diagnosis Assessment Notes Treatment Notes Treatment Clinical Notes June, Left wrist pain (ICD-10 - M25.53 2) June,ontusion of left wrist, initial encounter (ICD-10 - S60.212A) Extensive discussion about current condition and treatment options available. The patient appears to have suffered a wrist contusion. We will allow progressive gentle wrist motion as pain allows. We discussed the importance of icing and elevation of the arm above the heart to prevent swelling. Bernard wrap applied [employer] Other 05-04-2023 NoteCONSULTATION CONSULTATION DATE: 06/23/2022 TO: Marquita Chawla M.D. CHIEF COMPLAINT: Includes right ankle [...] our patients to inform us about any gggs-qby-zkzmybc medications or herbal remedies/nutritional supplements/alternative remedies. 2. [...] treatment options with their primary care provider.[facility] [id number] Note CONSULTATION CONSULTATION DATE: 05/26/2022 TO: Marquita Chawla M.D. CHIEF COMPLAINT: Includes right foot [...] our patients to inform us about any oeqc-fgw-hnbrhyw medications or herbal remedies/nutritional supplements/alternative remedies. 2. [...] treatment options with their primary care provider.[facility] [id number] NotePROCEDURE: XR ANKLE RT MIN 3 VIEWS, [...] Electronically authenticated by: TAYLA HANNON Date: 2022-04-27 10:29[facility] [id number] NotePROCEDURE: XR ANKLE RT MIN 3 VIEWS, [...] by: TAYLA HANNON Date: 2022-04-27 10:29[facility]12-17-2022 Evaluation note* Encounter Date Diagnosis Assessment Notes Treatment Notes Treatment Clinical Notes Jan, Sore throat (ICD-10 - J02.9) Jan,cute bronchitis, unspecified organism (ICD-10 - J20.9)She is positive for influenza A. However, unfortunately, she is out of the oseltamivir tx window. She does appear to be developing secondary bronchitis. Will prescribe zpak, prednisone, and codeine cough medicine. She is given return precautions. She understands and agrees with the plan. Jan,2Cough (ICD-10 - R05.9) [employer] Other 11-07-2022 Evaluation note* Encounter Date Diagnosis Assessment Notes Treatment Notes Treatment Clinical Notes Dec, Cough (ICD-10 - R05.9) Dec,cute non-recurrent pansinusitis (ICD-10 - J01.40)Sinus infections can be triggeredby a secondary infection; [...] She understands and agrees with the plan. [employer] Other 09-07-2022 NotePROCEDURE: XR ANKLE RT MIN [...] acute bone abnormality. Electronically authenticated by: JAVIER BAILEY Date: 2021-10-27 14:08[facility]09-07-2022 NotePROCEDURE: XR ANKLE RT MIN 3 VIEWS, [...] acute bone abnormality. Electronically authenticated by: JAVIER BAILEY Date: 2021-10-27 14:08[facility]09-07-2022 NotePROCEDURE: XR ANKLE RT MIN 3 VIEWS, [...] acute bone abnormality. Electronically authenticated by: JAVIER BAILEY Date: 2021-10-27 14:08[facility] noteNo assessment information availableVeterans Health Administration Work Phone: Evaluation note* Diagnosis Encounter for weight management documented in this encounter [facility]Evaluation [facility]* Diagnosis Well woman exam with routine gynecological exam Routine gynecological examination Acute cough documented in this encounter [facility]Evaluation [facility]* Diagnosis Onset Date Resolution Status Admit Date 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 acuteAugust 2024 12:52pm [facility] Work Phone: Evaluation note* Diagnosis Family history of breast cancer Family history of malignant neoplasm of breast documented in this encounter [facility]* Diagnosis Weight gain Other symptoms concerning nutrition, metabolism, and development Metabolic syndrome Dysmetabolic Syndrome X documented in this encounter [facility] Healthcare[facility]* Diagnosis Family history of malignant neoplasm of breast documented in this encounter [facility] Work Phone: History general Narrative - Reported* Type Description Date Medical History allergies Medical HistoryconstipationMedical HistoryanxietySurgical Historyright ankle transplantSurgical Historyleft wristSurgical Historyright ovary removedSurgical Historytubes in [employer] Other Reason for referral (narrative)No reason for referral information availableMartin Memorial Hospital Work Phone: Reason for visit Narrative* Imaging (Routine) - AuthorizedSpecialtyDiagnoses / ProceduresReferred By ContactReferred To ContactRadiology Diagnoses Family history of malignant neoplasm of breast Procedures BI mammo bilateral screening tomosynthesis Toshia Reinoso, PA [address] [place] [address] Phone: tel: fax: Referral IDStatusReasonStart DateExpiration DateVisits RequestedVisits [id number] Perform Procedure [facility] Work Phone: Summary Purpose Family History No Family History Records FoundNo Family History Records FoundNo Family History Records FoundNo Family History Records FoundNo Family History Records FoundNo Family History Records Found Advance Directives No Advanced Directives Records FoundLatest Code Status on File Code StatusDate ActivatedDate InactivatedCommentsFull Code07/14/2011 5:19 PM 07/22/2011 4:30 PMCode StatusDate ActivatedDate InactivatedCommentsFull Code 07/10/2011 12:20 PM07/14/2011 5:19 PM Advance Directive Response Recorded Date/ Time Advance Directives No June 29 9:30am Date ActivatedDate InactivatedComments07/14/2011 5:19 PM07/22/2011 4:30 PMDate ActivatedDate InactivatedComments07/10/2011 12:20 PM07/14/2011 5:19 PM Advance Directive Response Recorded Date/ Time Advance Directives No June 29 3 8:30am Chief Complaint and Reason for Visit Chief Complaint Admit Date EMG BLE per Nohelia Scott [facility] September 25 025 12:52pm R92.8 N63.10 December 20, 2024 2 :28pm Reason for Visit Admit Date 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 September 25, 2024 12:52pm Chief Complaint sore throat, fatigue Chief Complaint Admit Date EMG BLE per Nohelia Scott [facility] September 25 12:52pm Chief Complaint Admit Date R92.8 N63.10 December 20, 2024 2 :28pm Abnormal Mammogram December 26, 2024 1 2:22pm Reason for Visit Admit Date Breast mass, right December 26, 2024 1 2:22pm Additional Source Comments INFORMATION SOURCE (unrecogn ized section and content) DATE CREATED AUTHOR 08/29/2020 [facility] DATE CREATED AUTHOR AUTHOR'S ORGANIZ ATION 04/03/2021 [facility] DATE CREATED AUTHOR AUTHOR'S ORGANIZ ATION 07/29/2022 [facility] DATE CREATED AUTHOR AUTHOR'S ORGANIZ ATION 10/01/2024 [facility] EPIC DATE CREATED AUTHOR AUTHOR'S ORGANIZ ATION 12/09/2024 [facility] DATE CREATED AUTHOR AUTHOR'S ORGANIZ ATION 12/28/2024 [facility] REASON FOR VISIT (unrecogniz ed section and content) ReasonCommentsWeight ManagementReasonCommentsGynecologic ExamReasonCommentsBRCA testingReasonCommentsWeight ManagementPt present today to discuss Adipex. Care Teams (unrecognized sec tion and content) Team Status: Active Member Role Status Dates Marquita Chawla MD Primary Care Provider Active Team Status: Inactive Member Role Status Dates Marquita Chawla MD Primary Care Provider Active Sandra Garcia NP-CAttending ProviderActive Team Status: Inactive Member Role Status Dates Marquita Chawla MD Primary Care Provider Active Start: May 09, 2023 End: May 08CAROLINA Armenta-Sofiatenadrienne ProviderActiveStart: May 09, 2023 End: May 09, 2023Team MemberRelationshipSpecialtyStart DateEnd Date Marquita Chawla MD [address] [place] [address] PCP - Xqnpjqv32/19/23Team MemberRelationshipSpecialtyStart DateEnd Date Marqutia Chawla MD [address] [place] [phone] PCP - Tvbgxtl17/19/23Team MemberRelationshipSpecialtyStart DateEnd Date Marquita Chawla MD [address] [place] [address] PCP - Dquphcx32/19/23Team MemberRelationshipSpecialtyStart DateEnd Date Marquita Chawla MD [address] [place] [address] PCP - Vknmqyb86/19/23 Team Status: Inactive Member Role Status Dates Marquita Chawla MD Primary Care Provider Active Start: September 25, 2024 End: September 25Vic Caldwell ProviderActiveStart: September 25, 2024 End: September 25, 2024Team MemberRelationshipSpecialtyStart DateEnd Date Marquita Chawla MD [address] [place] [address] PCP [facility]02/07/23Team MemberRelationshipSpecialtyStart DateEnd Date Marquita Chawla MD [address] [place] [address] PCP [facility]02/07/23Team MemberRelationshipSpecialtyStart DateEnd Date Marquita Chawla MD [address] [place] [address] PCP [facility]02/07/23 Team Status: Active Member Role/Relationship Status Kole Chawla MD Primary Care Provider Active Team Status: Inactive Member Role/Relationship Status Kole Chawla MD Primary Care Provider Active Start: September 25, 2024 End: September 25Vic Caldwell ProviderActiveStart: September 25, 2024 End: September 25, 2024 Team Status: Inactive Member Role/Relationship Status Kole Chawla MD Primary Care Provider Active Start: December 20, 2024 End: December 20CAROLINA Juarez-CAtnational jewish health ProviderActiveStart: December 20, 2024 End: December 20, 2024 Team Status: Inactive Member Role/Relationship Status Kole Chawla MD Primary Care Provider Active Start: December 20, 2024 End: December 20CAROLINA Juarez-Bisi ProviderActiveStart: December 20, 2024 End: December 20, 2024 Team Status: Inactive Member Role/Relationship Status Dates Marquita Chawla MD Primary Care Provider Active Start: December 26, 2024 End: December 26, 2024FredVic Araujo ProviderActiveStart: December 26, 2024 End: December 26, 2024 Goals (unrecognized section and content) Goals may [...] BE BASED ON THE PRIMARY CLINICAL RECORDS. [employer] provides no warranty or guarantee of the accuracy or completeness of information in this document.
--- NOTE | 2025-01-20 13:00 | XR_ITS ---
The [address] [address] Patient Name: ETHAN BRADY MRN: [id number] date: 1985 Sex: F Assigned Patient Location: [facility] Current Patient Location: [facility] Accession/Order Number: [id number] Exam Date: 01/20/2025 12:54 Report Date: 01/20/2025 13:08 At the request of: HEATHER YANEZ Procedure: XR facial bones min 3V XR facial bones min 3V 01/20/2025 1:00 PM SIGNS AND SYMPTOMS: ^Other Specified Disordered Of Nose, bilateral frontal pain, recent injury PROTOCOL: Frontal and lateral radiographs of the calvarium facial bones COMPARISON: None FINDINGS: A BB marker is noted over the bridge of the nose. There is no evidence of acute displaced fracture. No significant soft tissue swelling. Paranasal sinuses are well-aerated as are intact XR/XR facial bones min 3V IMPRESSION: No evidence of displaced fracture. Impression dictated by: Davie Gallardo M.D. 01/20/2025 1:08 PM Dictation Location: [place] [address] Electronically authenticated by: [id number] Y Date: 01/20/2025 13:08
== END 2025-01-20 12:43 | disposition home or self-care (01) ==
LOC: RAD 12:46
PROVIDERS: PCP Family Medicine; Visit Provider Family Medicine
DX: J34.89 Other specified disorders of nose and nasal sinuses (principal)
CPT/HCPCS: 70150